=== PATIENT | male | born 1955 | race Caucasian/White ===

== ENCOUNTER 2017-07-02 08:37 | Day surgery (SDC) | payer BC, SELFPAY ==
--- NOTE | 2017-07-02 | IMM_PTH ---
PATIENT: CHAMP WU LOC: [place] U#:[id number] AGE/SX: 61/M ROOM: RE07/02/[address]: Dr. Cleveland Villanueva MD : 1955 BED: DIS: 07/02/2017 SPEC #: [id number] RECD: 07/05/17 12:56 STATUS: LETI CINDY #: [id number] DELFINA: 07/02/17 00:[address]: Cleveland Villanueva DEPT: IMMUNOHISTOCHEMISTRY RECD BY: Rosenda Waggoner ENTERED: 07/05/17 12:57 SP TYPE: IMMUNO OTHR DR: Dr. Mohan Senior MD Tissues: A - Stomach, NOS Procedures: H Pylori (initial) PHYSICIAN & INSTITUTION [place] [id number] SPECIMEN INFORMATION: Tissue Source: A ? Antral biopsy Clinical Info: Epigastric pain, GERD Specimen Number: [id number] CPT code: 95128 METHODOLOGY: Deparaffinized sections of prefer/formalin-fixed tissue or PAP/DQ stained slides are incubated with monoclonal/polyclonal antibodies/oligonucleotide probes. Localization is made via biotin free immunoperoxidase method. Appropriate controls are performed and reacted as expected. Results on target cell population are indicated in the following table: RESULTS: ANTIBODY / CLONE RESULT Block A H Pylori (polyclonal) negative These tests were developed and their performance characteristics determined by [facility]. They may not have been cleared or approved by the U.S. Food and Drug Administration. The FDA has determined that such clearance or approval is not necessary. INTERPRETATION: A. Antral biopsy: Negative for Helicobacter pylori organisms. SJ:mayelin 07/06/17
--- NOTE | 2017-07-02 | EGD_PTH ---
PATIENT: CHAMP WU LOC: [place] U#:[id number] AGE/SX: 61/M ROOM: RE07/02/[address]: Dr. Cleveland Villanueva MD : 1955 BED: DIS: 07/02/2017 SPEC #: [id number] RECD: 07/02/17 12:18 STATUS: LETI CINDY #: [id number] DELFINA: 07/02/17 00:[address]: Cleveland Villanueva DEPT: SURGICAL PATHOLOGY RECD BY: Leeann Murray ENTERED: 07/02/17 14:24 SP TYPE: EGD BIOPSY OT DR: Dr. Mohan Senior MD Tissues: A - Gastric mucous membrane B - Gastric mucous membrane Procedures: Special Stain Group II Surgery Specimen Level IV Alcian Blue/PAS (control) HEADER OPERATION: EGD PRE-OP DIAGNOSIS: Epigastric pain, GERD TISSUE SUBMITTED: A ? Antral biopsy, B ? GE junction MICROSCOPIC DIAGNOSIS A. Antral biopsy: Mild gastritis. See microscopic description and comment. B. 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 Focal mild chronic inflammation. SJ:rg 07/05/17 COMMENT A. The results of immunohistochemistry for Helicobacter pylori will be reported separately ([id number]). B. Alcian blue/PAS stain with matched control is used in the evaluation of the specimen. MICROSCOPIC DESCRIPTION Slides are reviewed. A. The specimen shows fragments of gastric mucosa with chronic inflammatory cell infiltrates in the lamina propria consisting of lymphocytes and plasma cells, consistent with mild chronic gastritis. GROSS DESCRIPTION A - Received in fixative is one container labeled with the patient's name and designated antral biopsy. The specimen consists of two irregular fragments of light johnson soft tissue that in aggregate measure 0.4 x 0.3 x 0.1 cm. The specimen is totally submitted in one cassette. B - Received in fixative is one container labeled with the patient's name and designated GE junction. The specimen consists of multiple irregular fragments of light johnson soft tissue that in aggregate measure 1 x 0.3 x 0.1 cm. The specimen is totally submitted in one cassette. / BALWINDER:mayelin 07/02/17 TC:3 CPT: 22683 x2, 41162
[2017-07-02 09:11] VITALS: BP 142/79; PULSE 64; RESP 16; TEMP 36.6; O2SAT 99; BMI 28.5
[2017-07-02 10:45] VITALS: BP 133/72; BP 142/79; PULSE 66; RESP 16; TEMP 36.1; O2SAT 95
[2017-07-02 10:50] VITALS: BP 117/61; BP 142/79; PULSE 60; RESP 15; O2SAT 98
[2017-07-02 10:55] VITALS: BP 124/82; BP 142/79; PULSE 52; RESP 16; O2SAT 98
--- NOTE | 2017-07-02 10:55 | OP.PCM_ITS ---
Problem List (1) GERD with esophagitis Status: Acute (2) Screen for colon cancer Status: Acute Report of Operation Date of Procedure: 07/02/17 Pre-Operative Diagnosis: 1. GERD. 2. Screening colonoscopy Post-Operative Diagnosis: 1. Esophagitis. 2. Sliding hiatal hernia. 3. Diverticulosis Surgery/Procedure Performed:: 1. EGD with biopsy. 2. Colonoscopy Specimen's removed: 1. Antral biopsy. 2. GE junction biopsy Description of Procedure: The major risks and benefits associated with the procedure were explained to the patient in detail. The patient verbalized understanding and agreement with the same. The patient was then placed in the left lateral decubitus position. IV sedation was started by anesthesia. The endoscope was then advanced under direct visualization over the tongue, into the esophagus , stomach and duodenum. It was slowly withdrawn and the mucosa was carefully evaluated. Duodenal mucosal abnormalities were not visualized. Antegrade and retrograde views of the stomach were normal and did not reveal ulceration. There did appear to be a small sliding hiatal hernia. Gastric folds were normal. A biopsy of the antrum was performed with cold forceps. The scope was then withdrawn through the GE junction and careful examination did reveal some erosive esophagitis. This was biopsied with cold forceps. No evidence of Grove's esophagus was apparent. Careful examination of the remainder of the esophagus was normal. The scope was then withdrawn from the patient. The patient was then turned for the colonoscopy portion of the procedure. A digital rectal exam was performed. This examination was within normal limits. A well-lubricated colonoscope was then inserted into the rectum and advanced under direct visualization to the level of the cecum. The bowel prep was good. The cecum was identified by both visual and anatomic landmarks. A photograph was taken of the end of the cecum. The scope was then fully withdrawn while examining the color, texture, anatomy and integrity of the mucosa from the cecum to the anal canal. The findings were consistent with normal colonic mucosa. Over 6 minutes were taken to examine the colonic mucosa. The patient did have some diverticulosis of the sigmoid colon. Upon reaching the rectum the scope was retroflexed to examine the distal rectal vault. The scope was then straightened and was completely retrieved upon exiting the anal canal and the procedure was terminated. The patient was then transferred to the recovery room in stable condition. Recommendations for follow up: 10 years for next colonoscopy
[2017-07-02 11:00] VITALS: BP 128/82; BP 142/79; PULSE 52; RESP 16; TEMP 36.1; O2SAT 99
[2017-07-02 11:20] VITALS: BP 142/79
== END 2017-07-02 11:20 | disposition home or self-care (01) ==
LOC: EN 08:38 → ACINP 08:39 → AC 08:41
PROVIDERS: Family Provider Family Medicine; PCP Family Medicine; Visit Provider Surgery
PROC: 0DJD8ZZ Inspection of Lower Intestinal Tract, Via Natural or Artificial Opening Endoscopic (ICD-10-PCS; CPT 45378; principal; 2017-07-02 09:55)
DX: K21.0 Gastro-esophageal reflux disease with esophagitis (principal); K22.70 Barrett's esophagus without dysplasia; K29.50 Unspecified chronic gastritis without bleeding; K44.9 Diaphragmatic hernia without obstruction or gangrene; K57.30 Diverticulosis of large intestine without perforation or abscess without bleeding; R10.13 Epigastric pain; Z12.11 Encounter for screening for malignant neoplasm of colon; D49.512 Neoplasm of unspecified behavior of left kidney; I10 Essential (primary) hypertension; E78.5 Hyperlipidemia, unspecified; Z79.82 Long term (current) use of aspirin; Z79.899 Other long term (current) drug therapy; Z82.49 Family history of ischemic heart disease and other diseases of the circulatory system
CPT/HCPCS: 43239; 45378; 88305; 88313; 88342; J7120

== ENCOUNTER 2017-08-04 05:17 | Inpatient (IN) | payer BC, SELFPAY ==
[2017-07-13 11:07] VITALS: BP 147/88; PULSE 72; RESP 16; TEMP 36.9; O2SAT 98; BMI 28.8
--- NOTE | 2017-07-13 11:24 | SDCEKG_ITS ---
Test Reason : Blood Pressure : / mmHG Vent. Rate : 061 BPM Atrial Rate : 061 BPM P-R Int : 140 ms QRS Dur : 100 ms QT Int : 402 ms P-R-T Axes : 027 -24 -01 degrees QTc Int : 404 ms Normal sinus rhythm Voltage criteria for left ventricular hypertrophy Abnormal ECG Confirmed by ADELA GUEVARA, MARK ([id number]), film editor MARCY BORJA ([id number]) on 07/15/2017 12:55:59 PM Referred By: Krish Pardo Confirmed By:MARK CHAPMAN MD
--- NOTE | 2017-07-13 11:24 | RAD_ITS ---
STUDY: X-RAY CHEST REASON FOR EXAM: Male, 61 years old. Preop. TECHNIQUE: PA and lateral views of the chest. COMPARISON: PA and lateral chest x-ray July 21, 2016. FINDINGS: The lungs are clear and expanded. There is no demonstrated pleural abnormality. Normal size heart. Normal mediastinum and lala. Normal visualized pulmonary arteries. Normal visualized aortic arch and descending thoracic aorta. There are stable multilevel degenerative changes of the visualized thoracic spine. Normal visualized ribs, clavicles, and shoulders. There is no demonstrated abnormality of the visualized soft tissue structures of the upper abdomen. RAD/Chest PA and Lateral IMPRESSION: No acute cardiopulmonary disease. Electronically Signed: Danyel Ly MD at 12:16 EST , Service support ,
[2017-07-13 12:21] LABS: Color, Urine Yellow (Yellow); Glucose, Dipstick 250 mg/dl (Normal); Ketone-Dipstick Negative (Negative); Leukocyte Esterase-Dipstick Negative /ul (Negative); Nitrite-Dipstick Negative (Negative); Occult Blood-Urine 10 /ul (Negative); Protein-Dipstick 15 mg/dl (Negative); Specific Gravity, Urine 1.025 (1.002-1.030); Urine Bilirubin Dipstick Negative (Negative); Urine Clarity Clear (Clear); Urine Urobilinogen Normal (Normal)
[2017-07-13 12:41] LABS: Hematocrit 39.9 % (40-54); Hemoglobin 14.4 g/dl (13.0-16.5); Mean Corp Hgb Conc 36.1 g/gl (32-36); Mean Corpuscular Hgb 33.3 pg (27.0-32.0); Mean Corpuscular Volume 92.4 fL (80-94); Mean Platelet Vol. 9.1 fl (6.2-12.0); Platelet Count 138 K/mm3 (150-450); RBC Distribution Width CV 13.1 % (11.6-14.6); RBC Distribution Width SD 44.1 fl (35.1-43.9); Red Blood Count 4.32 M/mm3 (4.6-6.2); Scan Indicated on CBC? Y/N NO; White Blood Count 5.3 K/mm3 (4.4-11.0)
[2017-07-13 13:24] LABS: ALB/GLOB Ratio 1.1 RATIO (0.9-2.4); AST(SGOT) 14 U/L (15-37); Alanine Aminotransfer ALT/SGPT 27 U/L (16-61); Albumin, Serum 3.8 g/dL (3.2-5.0); Alkaline Phosphatase 96 U/L (45-117); Anion Gap 6 (5-15); BUN 28 mg/dL (7-18); BUN/Creat Ratio 26.4 RATIO (10-20); Calcium,Total 9.1 mg/dL (8.5-10.1); Chloride 107 mmol/L (98-107); Creatinine, Serum 1.06 mg/dL (0.70-1.30); EST Glomerular Filtration Rate 76 mL/min (>60); Est Glom Filt Rate - Afr Amer 92 mL/min (>60); Estimated Creatinine Clearance 60.39 ml/min; Globulin 3.5 g/dL (2.2-4.2); Glucose 125 mg/dL (74-106); Potassium 3.3 mmol/L (3.5-5.1); Protein, Total 7.3 g/dL (6.4-8.2); Sodium Level 142 mmol/L (136-145)
[2017-08-04] VITALS (10 sets, daily range): BP systolic 133–173; BP diastolic 62–92; PULSE 66–100; RESP 16–18; TEMP 36.4–37.8; O2SAT 92–100; BMI 28.8
[2017-08-04] MEDS: Bupivacaine Mpf 0.5% 30 ML VIAL (07:03)
[2017-08-04] MEDS: Cefazolin 2 GM in 0.9% Normal Saline 100 ML IV (07:27)
--- NOTE | 2017-08-04 07:30 | KID_PTH ---
PATIENT: CHAMP WU LOC: [facility] U#:[id number] AGE/SX: 61/M ROOM: [facility] [place]07 RE08/04/[address]: Dr. Krish Pardo MD : 1955 BED: 1 DIS: 08/06/2017 SPEC #: [id number] RECD: 08/04/17 13:43 STATUS: LETI CINDY #: [id number] DELFINA: 08/04/17 07:[address]: Krish Pardo DEPT: SURGICAL PATHOLOGY RECD BY: Leeann Murray ENTERED: 08/04/17 14:55 SP TYPE: KIDNEY OTHR DR: Dr. Mohan Senior MD Tissues: A - Adipose tissue B - Kidney, NOS Procedures: Surgery Specimen Level III Surgery Specimen Level V HEADER OPERATION: Laparoscopic-assisted robotic left parietal nephrectomy PRE-OP DIAGNOSIS: Left kidney mass TISSUE SUBMITTED: A ? Fat over tumor, B ? Left kidney mass MICROSCOPIC DIAGNOSIS A. Fat over tumor: Mature adipose tissue, negative for malignancy. B. 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 Adjacent renal parenchymal tissue with mild interstitial chronic inflammation. SJ:rg 08/06/17 COMMENT Case has been reviewed in consultation with Dr. Holliday who concurs with the above diagnosis. IDC:AM MICROSCOPIC DESCRIPTION Slides are reviewed. GROSS DESCRIPTION A - Received in fixative is one container labeled with the patient's name and designated fat over tumor. The specimen consists of a piece of yellow adipose tissue measuring 2.5 x 1.5 x 0.6 cm. One surface shows adipose surfaces and other surfaces show mildly congested adipose surfaces. The congested surface is inked blue and opposite surface is inked black. The specimen is serially sectioned and submitted entirely in two cassettes. B - Received in fixative is one container labeled with the patient's name and designated left kidney mass. The specimen consists of a partial nephrectomy specimen consisting of a nodular mass with one side showing fatty renal adipose tissue and other side showing renal parenchymal tissue. The entire specimen measures 3 x 3 x 2.5 cm and weighs 10.6 gm. The area grossly resembling renal parenchymal tissue is inked with black ink. The rest of the specimen is inked with blue ink. Also present in the container is a small piece of adipose tissue measuring 1 x 0.6 x 0.2 cm. Serial sections reveal a pink-red tumor mass measuring 2.5 x 2 x 2.5 cm. The mass appears to be circumscribed. No invasion into the surrounding adipose tissue is noted. Hedge Trimmer sections are submitted in six cassettes. The entire tumor is submitted. A small portion of perirenal adipose is not submitted. / BALWINDER:mayelin 08/05/17 TC:1 CPT: 62348, 74603
--- NOTE | 2017-08-04 10:29 | OP.PCM_ITS ---
Problem List (1) Left renal mass Status: Acute Report of Operation Date of Procedure: 08/04/17 Pre-Operative Diagnosis: Left renal mass Post-Operative Diagnosis: Same Surgery/Procedure Performed:: Left laparoscopic robotic assisted partial nephrectomy. And left intraoperative ultrasonography of the left kidney. Description of Surgical Findings:: 61-year-old male taken back to the operating room at the smooth induction of general anesthesia Tristan catheter was placed he was in position and the modified left flank position for an approach the left kidney. The abdomen was shaved prepped and draped in usual sterile fashion. I then made a small incision and the camera trocar site but the Veress needle into the abdomen insufflated the abdomen with CO2 gas placed the camera trocar left robotic arm right robotic arm and the third senior court office assistant arm. And then placed the aerosol trocar through the umbilicus. I first I reflected the spleen off the kidney and then I reflected the colon off the kidney incising the white line of Toldt all the way down to the pelvis I then identified the gonadal vessels and ureter elevated these up in Marlen's down to the blood vessels of the left kidney I had to clip a fairly large lumbar vein going into the gonadal vessel and then this allowed me to retract the kidney cephalad and identify the renal artery are not renal artery was then circumferentially dissected out in order to clamp it I then went up to the kidney and did ultrasonography of the kidney identified the tumor a image of the tumor was saved I then scored and marked all the edges around the tumor a bulldog was then placed on the artery we then resected the tumor using sharp scissors and the entire resection was done under minimal blood loss is a good control bleeding from the clamp of the artery clamp time was 22 minutes after resecting the tumor off the tumor came off completely with no violation of the tumor capsule tumor was placed in Endo Catch bag we then oversewed the base of the resection site with a 30V lock stitch I did 3 stitches to run the base to control all the arteries and veins in the resection site. We then placed FloSeal unclamped the artery, again clamp time was 22 minutes. And then placed FloSeal and Surgicel and the defect and then closed the defect over with 0 Vicryl stitches a CT1 needle had to use 2 of these to close it close it over once this was closed over then we extracted the tumor to the umbilicus then went back in inspected the kidney there was no bleeding we irrigated copiously again no bleeding from his resection site and there was no pneumoperitoneum for at least 10 minutes as we extracted the tumor I then closed the camera trocar with a Shayan Landers stitch and then closed the variceal trocar with a Shayan Landers stitch of the trochars removed patient anesthetic is being reversed and we closed all the subcuticular stitches with Monocryl and Steri-Strips. Blood loss was minimal during the case about 50 cc and the patient is currently being awakened from anesthesia at this point. Type of Anesthesia:: General Drains: tristan Estimated Blood Loss (mL): 50cc - Admit VTE Documentation VTE Present on Admission: No VTE Mechan Device Prophylaxis: SCD's VTE Pharm Prophylaxis ordered?: No Reason prophylaxis not ordered:: Treatment Not Indicated
--- NOTE | 2017-08-04 13:17 | CHAPLAIN ---
Type of Pastoral Visit _x__ Initial Visit ___ Follow-up Visit ___ On-call Visit ___ General Patient Visit ___ Spiritual Assessment ___ Family Conference ___ Bereavement ___ Rapid Response ___ Code Blue ___ Other (describe below) Pastoral Care Referral From _x__ Patient _x__ Family ___ Nurse ___ Physician ___ Supervisor Paper Machine ___ Finish Off Operator ___ Other (describe below) Sacrament/Intervention _x__ Active listening ___ Anointing ___ Anabaptist ___ Bereavement ___ Communion ___ Breanna exploration ___ ___ Life review _x__ Prayer ___ Reconciliation ___ Sacrament of Sick _x__ Supportive presence ___ Wedding ___ Other (describe below) Pastoral Comments patient known to this bean snapper; support offered to spouse while she waited for pt to come to room from surgery; met with pt on his return to room and offered support and prayer; no other concerns
[2017-08-04] MEDS: 0.45% Normal Saline 1,000 ML 75 ML IV (13:26)
[2017-08-04] MEDS: Ketorolac 15 MG/ML Vial IV ×3 (13:26→23:51)
[2017-08-04] MEDS: Docusate Sodium 100 MG Capsule PO ×2 (13:28→21:29)
[2017-08-04] MEDS: Magnesium Hydroxide 30 ML UDC 15 ML PO (15:10)
[2017-08-04] MEDS: Acetaminophen 500 MG Tablet PO (19:53)
[2017-08-04] MEDS: Lisinopril 20 MG Tablet PO (21:29)
[2017-08-05 02:00] VITALS: BP 133/82; PULSE 69; RESP 16; TEMP 36.7; O2SAT 94
[2017-08-05] MEDS: 0.45% Normal Saline 1,000 ML 75 ML IV (02:30)
[2017-08-05] MEDS: Acetaminophen 500 MG Tablet PO ×2 (02:30→08:02)
[2017-08-05] MEDS: Enoxaparin 40 MG/0.4 ML Syringe SC (05:57)
[2017-08-05] MEDS: Ketorolac 15 MG/ML Vial IV ×4 (05:58→23:42)
--- NOTE | 2017-08-05 06:41 | PCM.PROGNOTE ---
Patient Problems: Active and Suspected Problems (Last Reviewed 06/16/17 @ 10:31 by Hilary Wallis) Left renal mass (Acute) Subjective: doing well tess reg diet - Physical Exam General: Alert, Oriented x3, Cooperative HEENT: Atraumatic, PERRLA, EOMI, Normocephalic Neck: Supple, No JVD, Negative Carotid Bruits Lungs: Clear to auscultation, Normal air movement Cardiovascular: Regular rate, No murmurs Abdomen: Bowel Sounds Present, Soft, Non Tender Extremities: No edema, Capillary Refill Less than 3 Seconds Skin: No rashes, No breakdown Musculoskeletal: No Tenderness to Palpation of Joints or Extremities Neurological: Cranial nerves II-XII grossly intact Psych/Mental Status: Normal Affect, Appropriate Vital Signs Temp Pulse Resp BP Pulse Ox 98.1 F 69 16 133/82 H 94 08/05/17 02:00 08/05/17 02:00 08/05/17 02:00 08/05/17 02:00 08/05/17 02:00 Oxygen Delivery Method Room Air Weight: 73.8 kg Body Mass Index (BMI) 28.8 Intake and Output for Last 24 Hours 08/03/17 08/04/17 08/05/17 23:59 23:59 23:59 Intake Total 7255 / 7255 765 / 765 Output Total 2675 / 2675 500 / 500 Balance 4580 / 4580 265 / 265 Laboratory Tests Past 24 Hrs 08/04/17 06:05 Blood Type O NEGATIVE Antibody Screen NEGATIVE Assessment/Plan Active and Suspected Problems (Last Reviewed 06/16/17 @ 10:31 by Hilary Wallis) Left renal mass (Acute) home tomorrow am reg diet heplock ivf ambulate
--- NOTE | 2017-08-05 06:43 | PCM.DC.URO ---
Discharge Diet: Light diet - advance as tolerated Discharge Activity: May not drive while taking narcotic pain medications. Call your doctor if your incision/area has: Continuous Slow Oozing, Sudden Increased Bleeding, Increased Pain/ Swelling, Increased Redness, Foul Smelling Discharge, Swelling at the incision site Call your doctor if you observe: Fever of 101 or Higher Suture Line Care: Avoid Pulling/Pushing, Avoid Pinching/Bending Allergies/Adverse Reactions: Allergies No Known Allergies Allergy (Verified 07/13/17 11:03) Medications to take at Discharge Amlodipine [Norvasc] 10 mg PO DAILY 05/18/16 Lisinopril [Zestril] 20 mg PO BID 05/18/16 Multivitamins,Therapeutic [Multivitamin] 1 tablet PO DAILY 08/05/16 omeprazole 20 mg capsule,delayed release 20 mg PO QDAY #30 cap 06/16/17 Docusate Sodium [Colace] 100 mg PO BID #20 cap 08/05/17 Hydrocodone/Acetaminophen [[place] 5-325 Tablet] 1 ea PO Q4H PRN PRN 5 Days #14 tab 08/05/17 Primary Care Physician: Mohan Senior MD [Primary Care Provider] - Please Follow Up With: Krish Pardo MD When: WednesdayAugust 16 at 9:45 am Proposed Discharge Date: 08/06/17
--- NOTE | 2017-08-05 06:51 | PCM.DC.SUM ---
Discharge Date and Diagnosis - Problem List Patient Problems: Active and Suspected Problems (Last Reviewed 06/16/17 @ 10:31 by Hilary Wallis) Left renal mass (Acute) Date of Admission: 08/05/16 Date of Discharge: 08/06/17 - Primary Discharge Diagnosis Active and Suspected Problems (Last Reviewed 06/16/17 @ 10:31 by Hilary Wallis) Left renal mass (Acute) - Secondary Discharge Diagnosis Chronic Problems (Last Reviewed 06/16/17 @ 10:31 by Hilary Wallis) Epigastric pain (Chronic) HTN (hypertension) (Chronic) HLD (hyperlipidemia) (Chronic) Hospital Course and Treatment Operations: None, - - robotic left partial nephrectomy Procedures: None Summary of Care Provided: The patient is a 61 year old male with left sold renal mass, concerning for malignancy s/p left partial nephrectomy,doing well, home on pod #2 Discharge Diet: Light diet - advance as tolerated Discharge Activity: May not drive while taking narcotic pain medications. Call your doctor if your incision/area has: Continuous Slow Oozing, Sudden Increased Bleeding, Increased Pain/ Swelling, Increased Redness, Foul Smelling Discharge, Swelling at the incision site Call your doctor if you observe: Fever of 101 or Higher Suture Line Care: Avoid Pulling/Pushing, Avoid Pinching/Bending Home Medications: Medications to take at Discharge Amlodipine [Norvasc] 10 mg PO DAILY 05/18/16 Lisinopril [Zestril] 20 mg PO BID 05/18/16 Multivitamins,Therapeutic [Multivitamin] 1 tablet PO DAILY 08/05/16 omeprazole 20 mg capsule,delayed release 20 mg PO QDAY #30 cap 06/16/17 Docusate Sodium [Colace] 100 mg PO BID #20 cap 08/05/17 Hydrocodone/Acetaminophen [[place] 5-325 Tablet] 1 ea PO Q4H PRN PRN 5 Days #14 tab 08/05/17 Following Prescrptions Were Given to Patient: Hydrocodone/Acetaminophen [[place] 5-325 Tablet] 1 ea PO Q4H PRN PRN 5 Days #14 tab PRN Reason: Pain Docusate Sodium [Colace] 100 mg PO BID #20 cap Primary Care Physician: Mohan Senior MD [Primary Care Provider] - Please Follow Up With: Krish Pardo MD When: WednesdayAugust 16 at 9:45 am Meaningful Use Info Meaningful Use Diagnoses (Choose all that apply): None applicable
[2017-08-05 07:56] VITALS: BP 132/65; PULSE 65; RESP 16; TEMP 36.8; O2SAT 96
[2017-08-05] MEDS: Lisinopril 20 MG Tablet PO ×2 (08:02→20:04)
[2017-08-05] MEDS: Magnesium Hydroxide 30 ML UDC 15 ML PO (08:02)
[2017-08-05] MEDS: Docusate Sodium 100 MG Capsule PO ×2 (08:19→20:05)
[2017-08-05] MEDS: Pantoprazole Sodium 20 MG Tablet PO (08:19)
[2017-08-05] MEDS: amLODIPine 10 MG Tablet PO (08:19)
[2017-08-05] MEDS: 0.9% NaCl Peripheral Flush Adult/Peds IV ×3 (11:34→23:42)
[2017-08-05 14:04] VITALS: BP 121/70; PULSE 61; RESP 18; TEMP 36.9; O2SAT 96
--- NOTE | 2017-08-05 14:51 | CHAPLAIN ---
Type of Pastoral Visit ___ Initial Visit _x__ Follow-up Visit ___ On-call Visit ___ General Patient Visit ___ Spiritual Assessment ___ Family Conference ___ Bereavement ___ Rapid Response ___ Code Blue ___ Other (describe below) Pastoral Care Referral From _x__ Patient ___ Family ___ Nurse ___ Physician ___ Community Planner ___ Drop Wire Builder ___ Other (describe below) Sacrament/Intervention _x__ Active listening ___ Anointing ___ Temple ___ Bereavement ___ Communion ___ Breanna exploration ___ _x__ Life review _x__ Prayer ___ Reconciliation ___ Sacrament of Sick ___ Supportive presence ___ Wedding ___ Other (describe below) Pastoral Comments
[2017-08-05 19:50] VITALS: BP 143/74; PULSE 62; RESP 18; TEMP 36.9; O2SAT 97
[2017-08-05 23:44] VITALS: BP 155/82; PULSE 58; RESP 16; TEMP 37.1; O2SAT 95
[2017-08-06 05:29] VITALS: BP 155/81; PULSE 58; RESP 16; TEMP 36.9; O2SAT 95
[2017-08-06] MEDS: 0.9% NaCl Peripheral Flush Adult/Peds IV (05:35)
[2017-08-06] MEDS: Enoxaparin 40 MG/0.4 ML Syringe SC (05:35)
[2017-08-06] MEDS: Ketorolac 15 MG/ML Vial IV (05:36)
[2017-08-06 07:35] VITALS: BP 160/80; PULSE 58; RESP 18; TEMP 36.8; O2SAT 96
[2017-08-06 07:45] VITALS: PULSE 58
[2017-08-06] MEDS: amLODIPine 10 MG Tablet PO (08:40)
[2017-08-06] MEDS: Docusate Sodium 100 MG Capsule PO (08:41)
[2017-08-06] MEDS: Lisinopril 20 MG Tablet PO (08:41)
[2017-08-06] MEDS: Pantoprazole Sodium 20 MG Tablet PO (08:41)
== END 2017-08-06 08:40 | disposition home or self-care (01) | DRG 658 ==
LOC: ACINP 05:18 → MS3 05:20 → MS2 11:56
PROVIDERS: Admitting Provider Urology; Family Provider Family Medicine; PCP Family Medicine; Visit Provider Urology
PROC: 0TB14ZZ Excision of Left Kidney, Percutaneous Endoscopic Approach (ICD-10-PCS; CPT 50543; principal; 2017-08-04 07:10)
DX: D30.02 Benign neoplasm of left kidney (principal); E78.5 Hyperlipidemia, unspecified; I10 Essential (primary) hypertension
CPT/HCPCS: 36415; 71046; 86850; 86900; 88304; 88307; J3010; J7120; A4216; J2405; J3490

== ENCOUNTER → 2017-10-23 07:18 | Outpatient (CLI) | payer BC, SELFPAY ==
[2017-10-23 08:19] LABS: Anion Gap 6 (5-15); BUN 19 mg/dL (7-18); BUN/Creat Ratio 21.7 RATIO (10-20); Calcium,Total 8.5 mg/dL (8.5-10.1); Chloride 109 mmol/L (98-107); Cholesterol 190 mg/dL (200); Creatinine, Serum 0.88 mg/dL (0.70-1.30); EST Glomerular Filtration Rate 94 mL/min (>60); Est Glom Filt Rate - Afr Amer 114 mL/min (>60); Glucose 100 mg/dL (74-106); High Density Lipoprotein 39 mg/dL; PSA,Total - Annual Screen 0.76 ng/mL (0.00-4.00); Potassium 3.3 mmol/L (3.5-5.1); Sodium Level 143 mmol/L (136-145); Triglycerides 232 mg/dL; Very Low Density Lipoprotein 46 mg/dL (5-40)
== END ==
PROVIDERS: Family Provider Family Medicine; PCP Family Medicine; Visit Provider Family Medicine
DX: Z12.5 Encounter for screening for malignant neoplasm of prostate (principal); I10 Essential (primary) hypertension; E78.5 Hyperlipidemia, unspecified
CPT/HCPCS: 36415; 80048; 80061; 84153; G0103

== ENCOUNTER 2017-10-24 19:11 | Emergency (ER) | payer BC, SELFPAY ==
[2017-10-24 19:12] VITALS: BP 165/94; PULSE 76; RESP 18; TEMP 37.2; O2SAT 98; BMI 29.2
--- NOTE | 2017-10-24 19:35 | ED.VISSUMM ---
- ER Visit Summary Date of Service: 10/24/17 Chief Complaint: Right finger redness History of Present Illness: The patient is a 62 M patient cut his finger 3 days ago. He cut on a piece of metal. He then noticed some redness. He denies any significant pain. No fever or drainage. His tetanus is up-to-date. Physical Examination: Vital signs are reviewed. Right hand reveals erythema to the right middle finger on the dorsal surface. There is an abrasion noted to the right PIP middle finger joint. He has full range of motion without pain. Test Results: None indicated Emergency Department Course and Treatment: Patient does appear to have cellulitis of the finger. He will be placed on Keflex. He will follow up with his PCP Treatment Plan: [] Disposition: Discharge Impression: Right middle finger cellulitis This note was generated with [employer] dictation software. It may contain incorrect words, spelling, and punctuation that were not noted in review of the chart prior to signing ED Disposition - Plan for ED Patient: Chief Complaint: Wound Referrals: Mohan Senior MD [Primary Care Provider] -
--- NOTE | 2017-10-24 19:37 | ED.DEP ---
ED Disposition - Plan for ED Patient: Disposition: Home or Assisted Living Chief Complaint: Wound Instructions: ED Infec Skin Cellulitis Prescriptions: Cephalexin [Keflex] 500 mg PO Q6 #28 cap Referrals: Mohan Senior MD [Primary Care Provider] -
[2017-10-24] MEDS: Cephalexin 250 MG Capsule 500 MG PO ×2 (19:47→20:04)
== END 2017-10-24 20:08 | disposition home or self-care (01) ==
PROVIDERS: Emergency Provider Emergency Medicine; Family Provider Family Medicine; PCP Family Medicine
DX: L03.011 Cellulitis of right finger (principal); I10 Essential (primary) hypertension; Z79.899 Other long term (current) drug therapy
CPT/HCPCS: 99283

== ENCOUNTER → 2017-12-08 16:18 | Outpatient (CLI) | payer BC, SELFPAY ==
--- NOTE | 2017-12-08 16:21 | US_ITS ---
STUDY: RENAL ULTRASOUND - COMPLETE REASON FOR EXAM: Male, 62 years old. Follow-up removal of a left renal mass. TECHNIQUE: Ultrasound evaluation of the kidneys was performed with real-time and static iglesias-scale imaging. COMPARISON: Abdominal ultrasound, August 11, 2016. CT of the abdomen and pelvis, April 01, 2017. FINDINGS: RIGHT KIDNEY: Normal location of the right kidney, which is normal in size. The right kidney measures 10.4 cm. There is a normal cortex of the right kidney. The renal cortex measures 1.3 cm. There is a 2 x 1.5 x 1.9 cm cyst mid cortex. There are no right renal calculi. There is no right hydronephrosis. DISTAL RIGHT URETER: There is non-visualization of the distal right ureter. There is no demonstrated right ureterovesical junction calculus. There is no demonstrated right ureteral jet. LEFT KIDNEY: Normal location of the left kidney, which is normal in size. The left kidney measures 10.2 cm. There is a normal cortex of the left kidney. The renal cortex measures 1.3 cm. There is no left renal mass or cyst. There are no left renal calculi. There is no left hydronephrosis. DISTAL LEFT URETER: There is non-visualization of the distal left ureter. There is no demonstrated left ureterovesical junction calculus. There is no demonstrated left ureteral jet. BLADDER: The nondistended urinary bladder has a volume of 13 ml. There is a normal wall thickness of the distended urinary bladder. There is no demonstrated mass within the urinary bladder. There are no demonstrated bladder calculi. US/Kidney and Bladder IMPRESSION: 1. No evidence of left renal mass. 2. Stable right renal cyst. Electronically Signed: Fred Wright DO at 22:50 EDT Tel [phone], Service support ,
== END ==
PROVIDERS: Family Provider Family Medicine; PCP Family Medicine; Visit Provider Nurse Practitioner Adult Health
DX: N28.89 Other specified disorders of kidney and ureter (principal)
CPT/HCPCS: 76770

== ENCOUNTER 2018-07-29 08:42 | Day surgery (SDC) | payer BC, SELFPAY ==
[2018-07-13 15:33] VITALS: BMI 28.5
[2018-07-29] VITALS (8 sets, daily range): BP systolic 110–141; BP diastolic 74–85; PULSE 51–63; RESP 16–18; TEMP 36.1–36.7; O2SAT 95–99; BMI 29.1
--- NOTE | 2018-07-29 10:00 | EGD_PTH ---
PATIENT: CHAMP WU LOC: [facility] U#:[id number] AGE/SX: 62/M ROOM: RE07/29/[address]: Dr. Cleveland Villanueva MD : 1955 BED: DIS: 07/29/2018 SPEC #: [id number] RECD: 07/29/18 12:14 STATUS: LETI CINDY #: [id number] DELFINA: 07/29/18 10:[address]: Cleveland Villanueva DEPT: SURGICAL PATHOLOGY RECD BY: Chris Whitmore ENTERED: 07/29/18 13:18 SP TYPE: EGD BIOPSY OTHR DR: Dr. Mohan Senior MD Tissues: Gastric mucous membrane Procedures: Special Stain Group II Surgery Specimen Level IV Alcian Blue/PAS (control) HEADER OPERATION: EGD ([facility] [place]) PRE-OP DIAGNOSIS: Grove's esophagus TISSUE SUBMITTED: GE junction biopsy MICROSCOPIC DIAGNOSIS GE junction, biopsy: Fragments of gastroesophageal mucosa with focal intestinal metaplasia (goblet cell metaplasia), consistent with Grove's esophagus. Negative for dysplasia. BALWINDER:mayelin 08/01/18 COMMENT Alcian blue/PAS stain with matched control is used in the evaluation of the specimen. MICROSCOPIC DESCRIPTION Slides are reviewed. GROSS DESCRIPTION Received in fixative is one container labeled with the patient's name and designated GE junction biopsy. The specimen consists of multiple irregular fragments of light johnson soft tissue that in aggregate measure 1 x 0.2 x 0.1 cm. The specimen is totally submitted in one cassette. / BALWINDER:mayelin 07/29/18 TC:5 CPT: 64813, 35510
--- NOTE | 2018-07-29 10:37 | OP.ENDO_ITS ---
07/29/2018 Mohan Senior [address] [place] [address] Re : Upper GI endoscopy procedure for Kev Whitmore Dear Dr. Senior This procedure was performed on Sunday, July 29, 2018. 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 Biopsied. - Widely patent, non-obstructing and mild Schatzki ring. - Medium-sized hiatal hernia. Recommendations : - Discharge patient to home (ambulatory). - Resume previous diet. - Continue present medications. - Await pathology results. - Repeat upper endoscopy in 2 years for surveillance. My findings are described in the full procedure note, which is enclosed. If I can be of further assistance, please feel free to contact me at Doctor phone number(s): , Work: . Sincerely, Cleveland Villanueva MD 07/29/2018 10:37:05 AM This report has been signed electronically.
== END 2018-07-29 11:15 | disposition home or self-care (01) ==
LOC: EN 08:45 → AC 08:50
PROVIDERS: Family Provider Family Medicine; PCP Family Medicine; Referring Provider Surgery; Visit Provider Surgery
PROC: 0DJ08ZZ Inspection of Upper Intestinal Tract, Via Natural or Artificial Opening Endoscopic (ICD-10-PCS; CPT 43235; principal; 2018-07-29 09:55)
DX: K22.70 Barrett's esophagus without dysplasia (principal); K22.2 Esophageal obstruction; K44.9 Diaphragmatic hernia without obstruction or gangrene; I10 Essential (primary) hypertension; Z79.899 Other long term (current) drug therapy
CPT/HCPCS: 43239; 88305; 88313; J7120

== ENCOUNTER → 2018-10-31 | Outpatient (CLI) | payer OTHER, SELFPAY ==
[2018-07-29 09:10] VITALS: BMI 29.1
== END | disposition home or self-care (01) ==
PROVIDERS: Family Provider Family Medicine; PCP Family Medicine; Visit Provider Family Medicine
DX: E78.5 Hyperlipidemia, unspecified (principal); I10 Essential (primary) hypertension; Z12.5 Encounter for screening for malignant neoplasm of prostate
CPT/HCPCS: 36415

== ENCOUNTER → 2019-04-10 09:41 | Outpatient (CLI) | payer OTHER, SELFPAY ==
[2018-07-29 09:10] VITALS: BMI 29.1
[2019-04-10 12:51] LABS: Anion Gap 6 (5-15); BUN 16 mg/dL (7-18); Calcium,Total 9.1 mg/dL (8.5-10.1); Chloride 107 mmol/L (98-107); EST Glomerular Filtration Rate 81 mL/min (>60); Est Glom Filt Rate - Afr Amer 98 mL/min (>60); Glucose 105 mg/dL (74-106); Potassium 3.5 mmol/L (3.5-5.1); Sodium Level 142 mmol/L (136-145)
== END ==
PROVIDERS: Family Provider Family Medicine; PCP Family Medicine; Referring Provider Family Medicine; Visit Provider Family Medicine
DX: I10 Essential (primary) hypertension (principal)
CPT/HCPCS: 36415; 80048

== ENCOUNTER → 2019-10-06 10:45 | Outpatient (CLI) | payer OTHER, SELFPAY ==
[2018-07-29 09:10] VITALS: BMI 29.1
[2019-10-06 13:05] LABS: ALB/GLOB Ratio 1.2 RATIO (0.9-2.4); AST(SGOT) 14 U/L (15-37); Alanine Aminotransfer ALT/SGPT 23 U/L (16-61); Albumin, Serum 3.8 g/dL (3.2-5.0); Alkaline Phosphatase 99 U/L (45-117); Anion Gap 7 (5-15); BUN 18 mg/dL (7-18); BUN/Creat Ratio 19.4 RATIO (10-20); Chloride 105 mmol/L (98-107); Cholesterol 225 mg/dL (200); Creatinine, Serum 0.93 mg/dL (0.70-1.30); EST Glomerular Filtration Rate 88 mL/min (>60); Est Glom Filt Rate - Afr Amer 106 mL/min (>60); Globulin 3.3 g/dL (2.2-4.2); Glucose 98 mg/dL (74-106); High Density Lipoprotein 50 mg/dL; PSA,Total - Annual Screen 0.97 ng/mL (0.00-4.00); Potassium 3.4 mmol/L (3.5-5.1); Protein, Total 7.1 g/dL (6.4-8.2); Sodium Level 143 mmol/L (136-145); Triglycerides 230 mg/dL; Very Low Density Lipoprotein 46 mg/dL (5-40)
== END ==
PROVIDERS: PCP Family Medicine; Visit Provider Family Medicine
DX: I10 Essential (primary) hypertension (principal); E78.5 Hyperlipidemia, unspecified; Z12.5 Encounter for screening for malignant neoplasm of prostate
CPT/HCPCS: 36415; 80053; 80061; 84153; G0103

== ENCOUNTER → 2020-10-04 10:04 | Outpatient (CLI) | payer OTHER, SELFPAY ==
[2018-07-29 09:10] VITALS: BMI 29.1
[2020-10-04 12:07] LABS: Absolute Lymphocyte Count 3.03 X10^3/uL (0.83-4.51); Absolute Neutrophil Count 1.5 X10^3/uL (2.0-7.7); Basophil# 0.02 X10^3/uL; Basophil% 0.4 % (0-1); Eosinophil# 0.06 X10^3/uL; Eosinophils% 1.2 % (0-5); Hematocrit 40.7 % (40-54); Hemoglobin 14.6 g/dL (13.0-16.5); Lymphocyte # 3.03 X10^3/ul (0.83-4.51); Lymphocyte % 58.2 % (19-41); Mean Corp Hgb Conc 35.9 g/dL (32-36); Mean Corpuscular Hgb 32.9 pg (27.0-32.0); Mean Corpuscular Volume 91.7 fL (80-94); Mean Platelet Vol. 9.4 fl (6.2-12.0); Monocyte# 0.58 X10^3/uL; Monocyte% 11.1 % (0-10); NRBC Flagged by Analyzer 0 % (0-5); Neutrophil # 1.48 X10^3/uL (2.7-7.7); Neutrophil % 28.3 % (47-70); POSITIVE COUNT YES; Platelet Count 67 K/mm3 (150-450); RBC Distribution Width CV 12.9 % (11.6-14.6); RBC Distribution Width SD 43.5 fl (35.1-43.9); Red Blood Count 4.44 M/mm3 (4.6-6.2); White Blood Count 5.2 K/mm3 (4.4-11.0)
[2020-10-04 12:12] LABS: Differential Indicated SCAN CRITERIA MET
[2020-10-04 12:24] LABS: AST(SGOT) 14 U/L (15-37); Alanine Aminotransfer ALT/SGPT 26 U/L (16-61); Albumin, Serum 3.7 g/dL (3.2-5.0); Alkaline Phosphatase 95 U/L (45-117); Anion Gap 7 (5-15); BUN 23 mg/dL (7-18); BUN/Creat Ratio 22.3 RATIO (10-20); Calcium,Total 8.8 mg/dL (8.5-10.1); Chloride 106 mmol/L (98-107); Cholesterol 197 mg/dL (200); Creatinine, Serum 1.03 mg/dL (0.70-1.30); EST Glomerular Filtration Rate 78 mL/min (>60); Est Glom Filt Rate - Afr Amer 94 mL/min (>60); Globulin 3.8 g/dL (2.2-4.2); Glucose 111 mg/dL (74-106); High Density Lipoprotein 48 mg/dL; Potassium 3.2 mmol/L (3.5-5.1); Protein, Total 7.5 g/dL (6.4-8.2); Sodium Level 141 mmol/L (136-145); Thyroid Stim Hormone (TSH) 1.95 uIU/mL (0.358-3.74); Triglycerides 245 mg/dL; Very Low Density Lipoprotein 49 mg/dL (5-40)
[2020-10-04 12:34] LABS: Platelet Estimate MKD DEC (ADEQ)
== END ==
PROVIDERS: PCP Family Medicine; Referring Provider Family Medicine; Visit Provider Family Medicine
DX: D69.6 Thrombocytopenia, unspecified (principal); I10 Essential (primary) hypertension
CPT/HCPCS: 36415; 80053; 80061; 84443; 85025

== ENCOUNTER → 2020-10-24 10:54 | Outpatient (CLI) | payer SELFPAY ==
[2018-07-29 09:10] VITALS: BMI 29.1
[2020-10-16 08:57] VITALS: BMI 30.4
--- NOTE | 2020-10-24 10:59 | MRI_ITS ---
HISTORY: PANCREATIC LESION ADDITIONAL HISTORY: None provided. COMPARISON: CT 04/01/2017 TECHNIQUE: Multiplanar, multisequence MRI of the abdomen without and with 15 mL Dotarem IV contrast FINDINGS: LOWER THORAX: Unremarkable. LIVER: No concerning focal lesion. GALLBLADDER: No distinct gallstones. BILE DUCTS: No significant biliary dilatation. KIDNEYS/URETERS: Bilateral renal cysts were otherwise no follow-up is warranted for consensus guidelines, largest on the right measuring 2.5 cm. The postoperative changes of partial nephrectomy on the left. ADRENAL GLANDS: Unremarkable. SPLEEN: Mildly enlarged, 13.2 cm craniocaudal PANCREAS: 8 mm cystic lesion in the tail of the pancreas without significant enhancement. GI TRACT: Unremarkable as imaged. LYMPH NODES: No pathologic appearing adenopathy. FREE FLUID: None. SKELETON AND SOFT TISSUES: No acute findings. MRI/MRI Abd WITH and W/O Contrast IMPRESSION: Subcentimeter cystic lesion in the pancreatic tail is unchanged compared to 2017. at 0426 Reported and signed by: Chela Prasad MD Electronically Signed: Chela Prasad MD at 4:26 EDT Tel , Service support ,
== END ==
PROVIDERS: PCP Family Medicine; Referring Provider Family Medicine; Visit Provider Family Medicine
DX: K86.9 Disease of pancreas, unspecified (principal)
CPT/HCPCS: 74183; A9575; A4216

== ENCOUNTER → 2021-01-07 10:16 | Outpatient (CLI) | payer OTHER, SELFPAY ==
[2020-11-06 16:00] VITALS: BMI 30.2
[2021-01-07 12:12] LABS: Anion Gap 6 (5-15); BUN 19 mg/dL (7-18); BUN/Creat Ratio 20.9 RATIO (10-20); Calcium,Total 8.7 mg/dL (8.5-10.1); Chloride 106 mmol/L (98-107); Creatinine, Serum 0.91 mg/dL (0.70-1.30); EST Glomerular Filtration Rate 89 mL/min (>60); Est Glom Filt Rate - Afr Amer 108 mL/min (>60); Glucose 108 mg/dL (74-106); PSA,Total - Annual Screen 1.08 ng/mL (0.00-4.00); Potassium 3.3 mmol/L (3.5-5.1); Sodium Level 140 mmol/L (136-145)
== END ==
PROVIDERS: PCP Family Medicine; Referring Provider Family Medicine; Visit Provider Family Medicine
DX: E87.6 Hypokalemia (principal); Z12.5 Encounter for screening for malignant neoplasm of prostate
CPT/HCPCS: 36415; 80048; 84153; G0103

== ENCOUNTER → 2021-01-24 17:48 | Outpatient (CLI) | payer OTHER, SELFPAY | PROVIDERS: Visit Provider Family Medicine | DX: Z20.822 Contact with and (suspected) exposure to COVID-19 (principal) | CPT/HCPCS: 87635; U0005; U0003 ==

== ENCOUNTER → 2021-02-11 16:46 | Outpatient (CLI) | payer SELFPAY ==
--- NOTE | 2021-02-11 16:50 | RAD_ITS ---
HISTORY: COUGH EXAMINATION/TECHNIQUE: XR Chest 2 Views: 2 views COMPARISON: 07/13/17 FINDINGS: LINES/DEVICES: None. LUNGS: Extensive bilateral airspace opacities, largely peripheral in distribution with scattered areas of consolidation. No pleural effusion. MEDIASTINUM AND CARDIOVASCULAR STRUCTURES: Cardiac silhouette not enlarged. Central airways and mediastinal contour are unremarkable. BONES AND SOFT TISSUES: No acute bony abnormalities. RAD/Chest PA and Lateral IMPRESSION: Extensive bilateral airspace disease consistent with atypical or viral pneumonia. at 1749 Reported and signed by: Tony Duval MD Electronically Signed: Tony Duval MD at 17:48 EDT Tel , Service support ,
== END ==
PROVIDERS: PCP Family Medicine; Referring Provider Family Medicine; Visit Provider Family Medicine
DX: R05 Cough (principal)
CPT/HCPCS: 71046

== ENCOUNTER 2021-08-22 16:22 | Outpatient (CLI) | payer OTHER, SELFPAY ==
[2021-08-22 17:37] LABS: Absolute Neutrophil Count 1.7 X10^3/uL (2.0-7.7); Basophil# 0.01 X10^3/uL; Basophil% 0.2 % (0-1); Eosinophil# 0.03 X10^3/uL; Eosinophils% 0.6 % (0-5); Hematocrit 39.9 % (40-54); Hemoglobin 14.6 g/dL (13.0-16.5); Lymphocyte % 52.4 % (19-41); Mean Corp Hgb Conc 36.6 g/dL (32-36); Mean Corpuscular Hgb 34.4 pg (27.0-32.0); Mean Corpuscular Volume 93.9 fL (80-94); Mean Platelet Vol. 9.6 fl (6.2-12.0); Monocyte# 0.51 X10^3/uL; Monocyte% 10.7 % (0-10); NRBC Flagged by Analyzer 0 % (0-5); Neutrophil # 1.69 X10^3/uL (2.7-7.7); Neutrophil % 35.5 % (47-70); POSITIVE COUNT YES; Platelet Count 91 K/mm3 (150-450); RBC Distribution Width CV 12.8 % (11.6-14.6); Red Blood Count 4.25 M/mm3 (4.6-6.2); White Blood Count 4.8 K/mm3 (4.4-11.0)
[2021-08-22 18:03] LABS: Differential Indicated SCAN CRITERIA MET
[2021-08-22 18:16] LABS: Differential Comment SCANNED
[2021-08-22 18:28] LABS: ALB/GLOB Ratio 1.1 RATIO (0.9-2.4); AST(SGOT) 15 U/L (15-37); Alanine Aminotransfer ALT/SGPT 20 U/L (16-61); Albumin, Serum 3.9 g/dL (3.2-5.0); Alkaline Phosphatase 97 U/L (45-117); Anion Gap 6 (5-15); BUN 25 mg/dL (7-18); BUN/Creat Ratio 23.1 RATIO (10-20); Calcium,Total 9.4 mg/dL (8.5-10.1); Chloride 107 mmol/L (98-107); Cholesterol 191 mg/dL (200); Creatinine, Serum 1.08 mg/dL (0.70-1.30); EST Glomerular Filtration Rate 73 mL/min (>60); Est Glom Filt Rate - Afr Amer 89 mL/min (>60); Globulin 3.6 g/dL (2.2-4.2); Glucose 97 mg/dL (74-106); High Density Lipoprotein 40 mg/dL; Magnesium 2.2 mg/dL (1.6-2.6); Protein, Total 7.5 g/dL (6.4-8.2); Sodium Level 140 mmol/L (136-145); T4 Free Direct 1.17 ng/dL (0.76-1.46); Thyroid Stim Hormone (TSH) 2.74 uIU/mL (0.358-3.74); Triglycerides 286 mg/dL; Very Low Density Lipoprotein 57 mg/dL (5-40)
== END 2021-08-22 23:59 | disposition home or self-care (01) ==
LOC: MFPLAB 16:25
PROVIDERS: PCP Family Medicine; Referring Provider Family Medicine; Visit Provider Family Medicine
DX: E78.5 Hyperlipidemia, unspecified (principal); I10 Essential (primary) hypertension; E87.6 Hypokalemia
CPT/HCPCS: 36415; 80053; 80061; 83735; 84439; 84443; 85025

== ENCOUNTER 2021-09-02 09:30 | Outpatient (CLI) | payer OTHER, SELFPAY ==
--- NOTE | 2021-09-02 09:34 | US_ITS ---
STUDY: THYROID ULTRASOUND REASON FOR EXAM: Male, 66 years old. THYROID NODULE TECHNIQUE: Ultrasound evaluation of the thyroid was performed with real-time and static bardales-scale imaging. COMPARISON: None. FINDINGS: RIGHT LOBE: The right lobe of the thyroid gland measures 4.0 x 1.7 x 1.6 cm. There is a homogeneous echotexture. There are no demonstrated solid, cystic or complex lesions. LEFT LOBE: The left lobe of the thyroid gland measures 4.0 x 1.4 x 1.1 cm. There is a homogeneous echotexture. There are no demonstrated solid, cystic or complex lesions. ISTHMUS: The isthmus measures 4 millimeters . The regional lymph nodes are normal. US/Thyroid IMPRESSION: Normal ultrasound examination of the thyroid. Electronically Signed: Debra Pizano MD at 7:41 EDT ,
== END 2021-09-02 23:59 | disposition home or self-care (01) ==
PROVIDERS: PCP Family Medicine; Referring Provider Family Medicine; Visit Provider Family Medicine
DX: E04.1 Nontoxic single thyroid nodule (principal); R01.1 Cardiac murmur, unspecified
CPT/HCPCS: 76536

== ENCOUNTER 2021-09-05 10:00 | Outpatient (CLI) | payer OTHER, SELFPAY ==
[2021-09-05 12:51] LABS: Anion Gap 6 (5-15); BUN 18 mg/dL (7-18); Calcium,Total 8.6 mg/dL (8.5-10.1); Chloride 106 mmol/L (98-107); EST Glomerular Filtration Rate 65 mL/min (>60); Est Glom Filt Rate - Afr Amer 78 mL/min (>60); Glucose 242 mg/dL (74-106); Potassium 4.3 mmol/L (3.5-5.1); Sodium Level 136 mmol/L (136-145)
== END 2021-09-05 23:59 | disposition home or self-care (01) ==
LOC: MFPLAB 10:00
PROVIDERS: PCP Family Medicine; Referring Provider Family Medicine; Visit Provider Family Medicine
DX: I10 Essential (primary) hypertension (principal)
CPT/HCPCS: 36415; 80048

== ENCOUNTER → 2021-09-16 | Outpatient (CLI) | payer OTHER, SELFPAY | END | disposition home or self-care (01) | LOC: MFPLAB 09:44 | PROVIDERS: PCP Family Medicine; Visit Provider Family Medicine | DX: E87.6 Hypokalemia (principal) | CPT/HCPCS: 36415; 84132 ==

== ENCOUNTER → 2021-09-18 | Outpatient (CLI) | payer OTHER, SELFPAY ==
--- NOTE | 2021-09-18 13:54 | ECHOD_ITS ---
Reason For Study: HEART MURMUR Procedure This was a 2D Doppler, Color Flow transthoracic echocardiogram. Exam performed in department. Left Ventricle Normal LV size. The estimated ejection fraction is 55 %. No evidence for diastolic dysfunction. No regional wall motion abnormalities noted. Right Ventricle Normal RV size. Normal systolic function. Atria Normal left atrium. Normal right atrium. No doppler evidence for ASD. Mitral Valve There is no mitral valve stenosis. Trivial mitral valve insufficiency. Tricuspid Valve There is no tricuspid stenosis. Unable to estimate RV systolic pressure due to insufficient tricuspid regurgitant envelope. Trivial tricuspid valve insufficiency. Aortic Valve Trisinus/trileaflet aortic valve. There is no aortic stenosis. Mild (1+) aortic valve insufficiency. Pulmonic Valve There is no pulmonic valvular stenosis. Trivial pulmonic valve insufficiency. Great Vessels Normal aortic root. Pericardium/Pleural No pericardial effusion. MMode/2D Measurements & Calculations LVIDd: 4.8 cm IVSd: 1.0 cm Ao root diam: 3.3 cm LVIDs: 3.3 cm LVPWd: 1.0 cm RVDd: 3.6 cm FS: 31.1 % LAV(MOD-bp): 39.3 ml LVAd ap4: 33.9 cm2 SV(MOD-sp4): 68.0 ml LAV(MOD-bp) Indexed: 22.3 ml/m2 LVLd ap4: 8.3 cm LAV(MOD-sp2): 37.0 ml EDV(MOD-sp4): 112.9 ml LAV(MOD-sp4): 37.6 ml EDV(sp4-el): 117.9 ml LVAs ap4: 19.2 cm2 LVLs ap4: 7.0 cm ESV(MOD-sp4): 44.9 ml ESV(sp4-el): 44.5 ml EF(MOD-sp4): 60.2 % EF(sp4-el): 62.3 % SV(sp4-el): 73.4 ml LA A4 area: 15.0 cm2 LA dimension(2D): 3.6 cm RA A4 area: 14.1 cm2 Time Measurements MV dec time: 0.22 sec Doppler Measurements & Calculations MV E max harish: 78.3 cm/sec Lat Peak E' Harish: 7.6 cm/sec Med Peak E' Harish: 7.1 cm/sec MV A max harish: 80.4 cm/sec E/E' lat: 10.4 E/E' med: 11.0 MV E/A: 0.97 Ao V2 max: 142.9 cm/sec AI max harish: 368.5 cm/sec LV V1 max: 131.5 cm/sec Ao max P.2 mmHg AI max P.3 mmHg LV V1 max P.9 mmHg AI dec slope: 186.1 cm/sec2 AI P1/2t: 579.8 msec PA V2 max: 102.5 cm/sec TR max harish: 270.2 cm/sec TR max P.2 mmHg ECHO/Echo Complete Interpretation Summary The estimated ejection fraction is 55 %. No evidence for diastolic dysfunction. Trivial mitral valve insufficiency. Mild (1+) aortic valve insufficiency. Ordering Physician: Mohan Tobias Referring Physician: Mohan Tobias Performed By: Namrata Flores RDCS
== END | disposition home or self-care (01) ==
LOC: CVS 13:52
PROVIDERS: PCP Family Medicine; Referring Provider Family Medicine; Visit Provider Family Medicine
CPT/HCPCS: 93306

== ENCOUNTER → 2021-09-19 | Outpatient (CLI) | payer OTHER, SELFPAY ==
[2021-09-19 15:29] LABS: Anion Gap 8 (5-15); BUN 24 mg/dL (7-18); BUN/Creat Ratio 21.2 RATIO (10-20); Calcium,Total 9.2 mg/dL (8.5-10.1); Chloride 104 mmol/L (98-107); Creatinine, Serum 1.13 mg/dL (0.70-1.30); EST Glomerular Filtration Rate 69 mL/min (>60); Est Glom Filt Rate - Afr Amer 84 mL/min (>60); Glucose 150 mg/dL (74-106); Potassium 3.8 mmol/L (3.5-5.1); Sodium Level 138 mmol/L (136-145)
== END | disposition home or self-care (01) ==
LOC: MFPLAB 11:36
PROVIDERS: PCP Family Medicine; Referring Provider Family Medicine; Visit Provider Family Medicine
DX: E87.6 Hypokalemia (principal)
CPT/HCPCS: 36415; 80048

== ENCOUNTER → 2021-12-17 | Outpatient (CLI) | payer OTHER, SELFPAY ==
[2021-12-17 17:57] LABS: Absolute Lymphocyte Count 2.73 X10^3/uL (0.83-4.51); Absolute Neutrophil Count 1.8 X10^3/uL (2.0-7.7); Basophil# 0.01 X10^3/uL; Basophil% 0.2 % (0-1); Eosinophil# 0.04 X10^3/uL; Eosinophils% 0.8 % (0-5); Hematocrit 38.1 % (40-54); Hemoglobin 13.7 g/dL (13.0-16.5); Lymphocyte # 2.73 X10^3/ul (0.83-4.51); Lymphocyte % 51.7 % (19-41); Mean Corpuscular Hgb 34.3 pg (27.0-32.0); Mean Corpuscular Volume 95.5 fL (80-94); Mean Platelet Vol. 9.7 fl (6.2-12.0); Monocyte# 0.65 X10^3/uL; Monocyte% 12.3 % (0-10); NRBC Flagged by Analyzer 0 % (0-5); Neutrophil # 1.82 X10^3/uL (2.7-7.7); Neutrophil % 34.4 % (47-70); Platelet Count 104 K/mm3 (150-450); Red Blood Count 3.99 M/mm3 (4.6-6.2); White Blood Count 5.3 K/mm3 (4.4-11.0)
[2021-12-17 18:06] LABS: AST(SGOT) 12 U/L (15-37); Alanine Aminotransfer ALT/SGPT 27 U/L (16-61); Albumin, Serum 3.8 g/dL (3.2-5.0); Alkaline Phosphatase 78 U/L (45-117); Anion Gap 8 (5-15); BUN 37 mg/dL (7-18); Calcium,Total 9.2 mg/dL (8.5-10.1); Chloride 103 mmol/L (98-107); Cholesterol 133 mg/dL (200); Creatinine, Serum 1.32 mg/dL (0.70-1.30); EST Glomerular Filtration Rate 58 mL/min (>60); Est Glom Filt Rate - Afr Amer 70 mL/min (>60); Globulin 3.7 g/dL (2.2-4.2); Glucose 99 mg/dL (74-106); High Density Lipoprotein 42 mg/dL; Potassium 4.1 mmol/L (3.5-5.1); Protein, Total 7.5 g/dL (6.4-8.2); Sodium Level 135 mmol/L (136-145); Triglycerides 245 mg/dL; Very Low Density Lipoprotein 49 mg/dL (5-40)
== END | disposition home or self-care (01) ==
LOC: MFPLAB 15:02
PROVIDERS: PCP Family Medicine; Referring Provider Family Medicine; Visit Provider Family Medicine
DX: E78.5 Hyperlipidemia, unspecified (principal)
CPT/HCPCS: 36415; 80053; 80061; 85025

== ENCOUNTER → 2021-12-25 | Outpatient (CLI) | payer OTHER, SELFPAY ==
[2021-12-25 15:08] LABS: Anion Gap 6 (5-15); BUN 34 mg/dL (7-18); BUN/Creat Ratio 23.1 RATIO (10-20); Calcium,Total 9.1 mg/dL (8.5-10.1); Chloride 104 mmol/L (98-107); Creatinine, Serum 1.47 mg/dL (0.70-1.30); EST Glomerular Filtration Rate 51 mL/min (>60); Est Glom Filt Rate - Afr Amer 62 mL/min (>60); Glucose 113 mg/dL (74-106); Potassium 4.2 mmol/L (3.5-5.1); Sodium Level 137 mmol/L (136-145)
== END | disposition home or self-care (01) ==
LOC: MTLAB 11:51
PROVIDERS: PCP Family Medicine; Referring Provider Family Medicine; Visit Provider Family Medicine
DX: I10 Essential (primary) hypertension (principal)
CPT/HCPCS: 36415; 80048

== ENCOUNTER → 2022-01-01 | Outpatient (CLI) | payer OTHER, SELFPAY ==
[2022-01-01 12:39] LABS: Anion Gap 8 (5-15); BUN 24 mg/dL (7-18); BUN/Creat Ratio 17.5 RATIO (10-20); Calcium,Total 8.8 mg/dL (8.5-10.1); Chloride 99 mmol/L (98-107); Creatinine, Serum 1.37 mg/dL (0.70-1.30); EST Glomerular Filtration Rate 56 mL/min (>60); Est Glom Filt Rate - Afr Amer 67 mL/min (>60); Glucose 120 mg/dL (74-106); Potassium 4.3 mmol/L (3.5-5.1); Sodium Level 133 mmol/L (136-145)
== END | disposition home or self-care (01) ==
LOC: MFPLAB 09:56
PROVIDERS: PCP Family Medicine; Referring Provider Family Medicine; Visit Provider Family Medicine
DX: N28.9 Disorder of kidney and ureter, unspecified (principal)
CPT/HCPCS: 36415; 80048

== ENCOUNTER → 2022-02-03 | Outpatient (CLI) | payer OTHER, SELFPAY ==
[2022-02-03 12:33] LABS: Anion Gap 10 (5-15); BUN 27 mg/dL (7-18); BUN/Creat Ratio 20.3 RATIO (10-20); Calcium,Total 9.2 mg/dL (8.5-10.1); Chloride 95 mmol/L (98-107); Creatinine, Serum 1.33 mg/dL (0.70-1.30); EST Glomerular Filtration Rate 58 mL/min (>60); Est Glom Filt Rate - Afr Amer 70 mL/min (>60); Glucose 115 mg/dL (74-106); Potassium 4.4 mmol/L (3.5-5.1); Sodium Level 132 mmol/L (136-145)
== END | disposition home or self-care (01) ==
LOC: MFPLAB 10:36
PROVIDERS: PCP Family Medicine; Visit Provider Family Medicine
DX: N28.9 Disorder of kidney and ureter, unspecified (principal)
CPT/HCPCS: 36415; 80048

== ENCOUNTER 2022-04-26 09:50 | Emergency (ER) | payer OTHER, SELFPAY ==
[2022-04-26 09:51] VITALS: BP 138/75; PULSE 100; RESP 17; TEMP 36.7; O2SAT 90; BMI 30.2
[2022-04-26 09:58] VITALS: O2SAT 90
[2022-04-26 09:59] VITALS: BP 146/74; PULSE 96; RESP 24; O2SAT 94
[2022-04-26 10:00] VITALS: O2SAT 94
--- NOTE | 2022-04-26 10:36 | EDS_ITS ---
HPI HPI - URI History of Present Illness Chief Complaint: Cough Informant: patient Onset/Context/Timing Onset: Days Context: Gradual Onset Timing: Continuous Current Severity: Mild Maximum Severity: Mild Associated Symptoms Associated Symptoms: Positive for Nasal Congestion and Productive Cough (Yellow sputum.); Negative for Nausea, Vomiting or Hemoptysis Narrative Narrative: 66-year-old male history of hypertension and renal insufficiency. States he has been having cough mild shortness of breath for approximately a week. Productive cough of yellowish sputum. Initially had diarrhea that is resolved. Denies any fever greater than 100. Denies any chest pain. No hemoptysis. Prior similar symptoms: Yes Recent Illness/Hospitalization: No ROS ROS ED ROS Narrative Cough. Shortness of breath. Diarrhea resolved. Review of Systems ROS Unobtainable: Denies due to encephalopathy Constitutional Constitutional ED: Reports chills and fever(s) Eyes Eyes: Denies blurry vision ENT ENT ED: Denies ear pain Cardiovascular Cardiovascular: Denies chest pain Respiratory/Chest Respiratory/Chest: Reports cough, dyspnea and sputum Gastrointestinal Gastrointestinal: Reports diarrhea; Denies abdominal pain, constipation, melena, nausea or vomiting Genitourinary Genitourinary ED: Denies dysuria or hematuria Musculoskeletal Musculoskeletal: Denies arthralgias Integumentary Denies abscess Neurologic Neurologic: Denies headache(s) Psychiatric Psychiatric: Denies anxiety Endocrine Endocrinology: Denies cold intolerance Hematologic/Lymphatic Hematologic/Lymphatic: Denies easy bleeding Allergic/Immunologic Allergic/Immunologic ED: Denies mouth swelling or tongue swelling [facility] Medical History Chest pressure Epigastric pain Hiatal hernia HLD (hyperlipidemia) HTN (hypertension) Hypokalemia Kidney cysts Kidney tumor Pancreas cyst Thrombocytopenia Home Medications amlodipine 5 mg tablet 10 mg PO DAILY blood pressure 05/18/16 [History Last Taken 08/04/17 04:00] lisinopril 20 mg tablet 20 mg PO DAILY blood pressure 05/18/16 [History Last Taken 08/04/17 04:00] multivitamin with folic acid 400 mcg tablet 1 tab PO DAILY supplement 08/05/16 [History Last Taken 08/03/17] omeprazole 20 mg capsule,delayed release 20 mg PO DAILY PRN Indigestion 07/13/18 [History Last Taken Unknown] aspirin 81 mg chewable tablet 81 mg PO DAILY 10/16/20 [History Last Taken Unknown] magnesium hydroxide 400 mg/5 mL oral suspension 5 ml PO DAILY PRN 10/16/20 [History Last Taken Unknown] omega-3 fatty acids 1,000 mg capsule (Fish Oil Concentrate) 2,000 mg PO DAILY PRN 10/16/20 [History Last Taken Unknown] hydrochlorothiazide 12.5 mg tablet 12.5 mg PO DAILY 11/06/20 [History Last Taken Unknown] spironolactone 25 mg tablet 25 mg PO 09/08/21 [History Last Taken Unknown] Allergy/AdvReac Type Severity Reaction Status Date / Time Beta-Blockers AdvReac Intermediate UNK Verified 04/26/22 09:50 (Beta-Adrenergic Bloc Family History Sister Diabetes Hypertension CAD (coronary artery disease) Father Hypertension Kidney disease Mother Hypertension Brother Seizures Surgical History H/O vasectomy History of kidney surgery Social History Smoking Status: Never smoker second hand exposure: No alcohol intake: never substance use type: does not use anand/nondenominational: Quaker EXAM Physical Exam Narrative Exam Narrative: 64-year-old male no acute distress. Vital signs stable afebrile. Pulse ox 90% on room air borderline hypoxia. No distress. H EENT exam unremarkable. Neck nontender no JVD. No lymphadenopathy. Lungs clear to auscultation bilaterally. No rales, rhonchi or wheezing. Equal symmetrical. Heart regular rhythm rate about 100 no murmur. Chest were nontender. Abdomen soft nontender. Moving all 4 extremities. Calves are nontender without edema or cords. Back nontender. He is awake and alert. No focal motor deficits. Const Vital Signs: 04/26/22 09:51 04/26/22 09:59 04/26/22 10:00 Temperature 98.1 F Temperature Source Temporal Pulse Rate 100 96 Respiratory Rate 17 24 H Respiratory Effort Normal Non-Labored Respiratory Depth Normal Respiratory Pattern Tachypnea Blood Pressure 138/75 H 146/74 H Blood Pressure Mean 96 98 Pulse Ox 90 94 Oxygen Delivery Method Room Air Nasal Cannula Nasal Cannula Oxygen Flow Rate (L/min) 2 2 Positive well nourished and well developed; Negative for cachectic or contractures General Appearance ED: well developed and NAD; Negative for cachectic, contractures, cyanotic, diaphoretic or pallor Nutritional Appearance: Negative for cachectic HEENT Reports moist mucous membranes; Denies dry mucous membranes normocephalic and atraumatic; Negative for scalp tenderness Face and Sinus: Negative for sinus tenderness, maxillary instability or facial tenderness Mouth ED: No dry mucous membranes Mouth: No dry mucous membranes Throat: posterior oropharynx normal; Negative for tonsils abnormal or posterior oropharynx abnormal Eyes PERRL and EOMs intact bilaterally General Eye ED: Negative for pale conjunctiva or scleral icterus Neck no lymphadenopathy, supple, no meningeal signs and no JVD General: Negative for anterior neck swelling or lymphadenopathy Resp normal respiratory effort and clear to auscultation bilaterally Effort and Inspection: Negative for retractions Auscultation: Negative for rales, rhonchi or wheezes Cardio S1 normal heart sound, S2 normal heart sound and no murmurs Rate: regular rate Rhythm: regular rhythm GI non-tender, non-distended and no masses Inspection: Negative for abdominal distention Auscultation: normoactive bowel sounds Palpation: soft; Negative for tender or guarding Back/Spine no CVA tenderness and normal ROM General Back: Negative for CVA tenderness Cervical Spine: Negative for cervical spine tenderness Thoracic Spine / Upper Back: Negative for thoracic spinal tenderness Lumbar Spine / Lower Back: Negative for lumbar spinal tenderness Sacrum: Negative for tenderness Extremity normal to inspection and full ROM General Extremety ED: Negative for cyanosis or tenderness General Extremity: Negative for cyanosis Neuro oriented x3 and CN's II-XII intact bilaterally Sensorium / Orientation: alert, oriented to person, oriented to place and oriented to time; Negative for orientation impaired, lethargic or stuporous Motor Exam: strength 5/5 throughout; Negative for general weakness Psych mental status grossly normal Appearance: Negative for other Attitude: No agitated Mood & Affect: Negative for depressed, anxious or tearful Skin General Skin Exam: Negative for jaundice or pallor Lesions: no lesions Rashes: no rashes Trauma: Negative for abrasion or laceration MDM MDM MDM Narrative Medical decision making narrative: 66-year-old male URI symptoms. Obtain a chest x-ray due to his borderline hypoxia. COVID and influenza test. Repeat exam unchanged at 11:20 AM. Patient to be discharged home. Lab Data Attestation: I reviewed the patient's lab results. Lab results narrative: COVID Test negative. Chest x-ray negative. Radiography Diagnostic Testing: Chest x-ray, portable, single view interpreted by myself shows no acute abnormality. Normal cardiac silhouette. No pneumonia. Discharge Plan Triage Chief Complaint: Cough ED Provider: Reynaldo Vidal Dx/Rx/DC Orders Clinical Impression: Viral URI, History of hypertension Instructions: ED Bronchitis, No Antibiotic (Adult) Prescriptions: No Action omeprazole 20 mg capsule,delayed release(DR/EC) 20 mg PO DAILY PRN (Reason: Indigestion) omega-3 fatty acids [Fish Oil Concentrate] 1,000 mg capsule 2,000 mg PO DAILY PRN magnesium hydroxide 400 mg/5 mL suspension 5 ml PO DAILY PRN aspirin 81 mg tablet,chewable 81 mg PO DAILY hydrochlorothiazide 12.5 mg tablet 12.5 mg PO DAILY spironolactone 25 mg tablet 25 mg PO Label Comments: take 1 tablet by mouth once daily lisinopril 20 MG tablet 20 mg PO DAILY amlodipine 5 MG tablet 10 mg PO DAILY multivitamin with folic acid 1 TABLET tablet 1 tab PO DAILY Primary Care Provider: Mohan Tobias Referrals: Mohan Tobias MD [Primary Care Provider] - 3-5 Days if not improving Activity Restrictions/Additional Instructions: Fluids and rest. Tylenol for body aches and fevers. COVID and influenza swabs are both negative today. Chest x-ray showed no pneumonia. Follow-up with his doctor if not improving. Disposition Disposition: Home, Self Care
--- NOTE | 2022-04-26 10:52 | RAD_ITS ---
EXAM: XR CHEST, 1 VIEW CLINICAL INDICATION: cough TECHNIQUE: Frontal view of the chest. This report was created using [employer] report generation technology. COMPARISON: XR Chest dated 02/11/2021 FINDINGS: LUNGS AND PLEURAL SPACES: Mild bibasilar peribronchial thickening which may represent acute or chronic inflammatory change. No pneumothorax. No effusion. HEART: Normal heart size. MEDIASTINUM: No mediastinal or hilar mass. BONES/JOINTS: No acute abnormality. SOFT TISSUES: Normal. RAD/Chest 1 View (Portable) IMPRESSION: Mild bibasilar peribronchial thickening. Electronically Signed: Luis Armando Diaz MD at 11:14 EST ,
[2022-04-26 11:31] VITALS: BP 141/78; PULSE 91; O2SAT 93
== END 2022-04-26 11:32 | disposition home or self-care (01) ==
PROVIDERS: Emergency Provider Emergency Medicine; PCP Family Medicine; Visit Provider Emergency Medicine
DX: J06.9 Acute upper respiratory infection, unspecified (principal)
CPT/HCPCS: 71045; 87428; 99282

== ENCOUNTER → 2022-07-22 | Outpatient (CLI) | payer OTHER, SELFPAY ==
[2022-07-22 10:48] LABS: Bacteria 0 SEEN /hpf (None Seen); Mucous, Urine 0 SEEN /hpf (<or=2+); Red Blood Cells-Urine 0 SEEN /hpf (0-5); Squamous Epithelial Cells - UA 0 SEEN /hpf (0-5); White Blood Cells 0 SEEN /hpf (0-5)
[2022-07-22 12:30] LABS: Color, Urine Yellow (Yellow); Glucose, Dipstick Normal (Normal); Ketone-Dipstick Negative (Negative); Leukocyte Esterase-Dipstick Negative /ul (Negative); Nitrite-Dipstick Negative (Negative); Occult Blood-Urine 10 /ul (Negative); Protein-Dipstick Negative (Negative); Urine Bilirubin Dipstick Negative (Negative); Urine Clarity Clear (Clear); Urine Urobilinogen Normal (Normal)
[2022-07-22 12:39] LABS: Absolute Lymphocyte Count 2.49 X10^3/uL (0.83-4.51); Absolute Neutrophil Count 2.2 X10^3/uL (2.0-7.7); Basophil# 0.01 X10^3/uL; Basophil% 0.2 % (0-1); Eosinophil# 0.11 X10^3/uL; Eosinophils% 1.9 % (0-5); Hematocrit 39.7 % (40-54); Hemoglobin 14.1 g/dL (13.0-16.5); Lymphocyte # 2.49 X10^3/ul (0.83-4.51); Lymphocyte % 43.4 % (19-41); Mean Corp Hgb Conc 35.5 g/dL (32-36); Mean Corpuscular Hgb 33.5 pg (27.0-32.0); Mean Corpuscular Volume 94.3 fL (80-94); Mean Platelet Vol. 9.2 fl (6.2-12.0); Monocyte# 0.88 X10^3/uL; Monocyte% 15.3 % (0-10); NRBC Flagged by Analyzer 0 % (0-5); Neutrophil # 2.22 X10^3/uL (2.7-7.7); Neutrophil % 38.7 % (47-70); Platelet Count 117 K/mm3 (150-450); RBC Distribution Width CV 13.4 % (11.6-14.6); RBC Distribution Width SD 46.1 fl (35.1-43.9); Red Blood Count 4.21 M/mm3 (4.6-6.2); White Blood Count 5.7 K/mm3 (4.4-11.0)
[2022-07-22 14:25] LABS: ALB/GLOB Ratio 0.8 RATIO (0.9-2.4); AST(SGOT) 11 U/L (15-37); Alanine Aminotransfer ALT/SGPT 17 U/L (16-61); Albumin, Serum 3.5 g/dL (3.2-5.0); Alkaline Phosphatase 100 U/L (45-117); Anion Gap 11 (5-15); BUN 28 mg/dL (7-18); BUN/Creat Ratio 24.8 RATIO (10-20); Calcium,Total 9.4 mg/dL (8.5-10.1); Chloride 105 mmol/L (98-107); Cholesterol 184 mg/dL (200); Creatinine, Serum 1.13 mg/dL (0.70-1.30); EST Glomerular Filtration Rate 69 mL/min (>60); Est Glom Filt Rate - Afr Amer 84 mL/min (>60); Globulin 4.2 g/dL (2.2-4.2); Glucose 112 mg/dL (74-106); High Density Lipoprotein 38 mg/dL; Potassium 3.8 mmol/L (3.5-5.1); Protein, Total 7.7 g/dL (6.4-8.2); Sodium Level 140 mmol/L (136-145); Triglycerides 417 mg/dL
[2022-07-23 15:51] LABS: Hemoglobin A1c 5.9 % (3.8-5.6)
== END | disposition home or self-care (01) ==
LOC: MFPLAB 10:44
PROVIDERS: PCP Family Medicine; Referring Provider Family Medicine; Visit Provider Family Medicine
DX: R73.09 Other abnormal glucose (principal); I10 Essential (primary) hypertension
CPT/HCPCS: 36415; 80053; 80061; 81001; 83036; 84443; 85025

== ENCOUNTER → 2022-09-25 | Outpatient (CLI) | payer MEDICARE, OTHER, SELFPAY ==
--- NOTE | 2022-09-25 09:05 | US_ITS ---
EXAM: US ABDOMEN LIMITED, RIGHT UPPER QUADRANT CLINICAL INDICATION: PANCREATIC LESION TECHNIQUE: Real-time ultrasound of the right upper quadrant with image documentation. COMPARISON: MRI from 10/24/2020 FINDINGS: LIVER: Unremarkable. There is normal echotexture. No focal hepatic lesion. No intrahepatic biliary ductal dilation. GALLBLADDER: Unremarkable. No shadowing gallstone. No gallbladder wall thickening is demonstrated. No pericholecystic fluid. Negative sonographic Tran''s sign. COMMON BILE DUCT: 4.5 mm. The proximal common bile duct is within normal limits for the patient''s age. PANCREAS: The pancreatic tail is obscured by bowel gas. RIGHT KIDNEY: Simple right renal cyst measuring 3.4 cm, no follow-up required. There is no hydronephrosis. No shadowing calculus. US/Abdomen Limited IMPRESSION: The pancreatic tail is obscured by bowel gas. Unable to evaluate the previously described cystic lesion. Electronically Signed: Leland Mariscal MD at 1:22 EDT ,
== END | disposition home or self-care (01) ==
LOC: US 09:04
PROVIDERS: PCP Family Medicine; Referring Provider Family Medicine; Visit Provider Family Medicine
DX: K86.9 Disease of pancreas, unspecified (principal)
CPT/HCPCS: 76705

== ENCOUNTER → 2022-10-06 | Outpatient (CLI) | payer MEDICARE, OTHER, SELFPAY ==
--- NOTE | 2022-10-06 09:07 | US_ITS ---
STUDY: ABDOMINAL ULTRASOUND - RIGHT UPPER QUADRANT REASON FOR VISIT: Male, 67 years old . Pancreatic lesion. TECHNIQUE: Ultrasound evaluation of the right upper quadrant was performed with real-time and static bardales-scale imaging. TECHNICAL QUALITY: Adequate. COMPARISON: Comparison is made with a prior examination dated the 2022. FINDINGS: Liver: The liver measures 15.8 cm. There is normal echogenicity of the liver. The bile ducts are within normal limits. There is hepatic color flow. The direction of portal flow is hepatopetal. There is no demonstrated mass lesion. Gallbladder: Normal distended gallbladder. The gallbladder wall measures 1.5 mm. There is a negative sonographic Tran''s sign. There is no pericholecystic fluid. There are no gallstones. Common Bile Duct (C.B.D.): The common bile duct measures 3.2 mm. Pancreas: Normal size of the head, body and tail of the pancreas. There is normal echogenicity of the pancreas. There is no demonstrated pancreatic mass or cyst. The previously seen tiny cyst in the pancreatic tail is not visualized. Right Kidney: Normal size of the right kidney. The right kidney measures 10.7 cm x 5.4 cm x 6 cm. Normal renal cortex. The right cortex measures 1.6 cm. There is a 3.7 cm x 3.2 cm x 2.9 cm cyst in the right kidney. There is no right hydronephrosis. US/Abdomen Limited IMPRESSION: Stable examination. The small cystic structure in the tail of the pancreas is not visualized on this examination. Electronically Signed: Rufus Chao MD at 15:16 EDT ,
== END | disposition home or self-care (01) ==
LOC: US 09:06
PROVIDERS: PCP Family Medicine; Referring Provider Family Medicine; Visit Provider Family Medicine
DX: K86.9 Disease of pancreas, unspecified (principal)
CPT/HCPCS: 76705

== ENCOUNTER → 2022-11-20 | Outpatient (CLI) | payer MEDICARE, OTHER, SELFPAY ==
[2022-11-20 10:27] LABS: Bacteria 0 SEEN /hpf (None Seen); Mucous, Urine 0 SEEN /hpf (<or=2+); Squamous Epithelial Cells - UA 0 SEEN /hpf (0-5); White Blood Cells 0 SEEN /hpf (0-5)
[2022-11-20 12:23] LABS: Color, Urine Yellow (Yellow); Glucose, Dipstick Normal (Normal); Ketone-Dipstick 15 mg/dl (Negative); Leukocyte Esterase-Dipstick Negative /ul (Negative); Nitrite-Dipstick Negative (Negative); Occult Blood-Urine 10 /ul (Negative); Protein-Dipstick Negative (Negative); Specific Gravity, Urine 1.015 (1.002-1.030); Urine Bilirubin Dipstick Negative (Negative); Urine Clarity Clear (Clear); Urine Urobilinogen Normal (Normal)
[2022-11-20 12:29] LABS: Absolute Lymphocyte Count 2.51 X10^3/uL (0.83-4.51); Absolute Neutrophil Count 1.4 X10^3/uL (2.0-7.7); Basophil# 0.02 X10^3/uL; Basophil% 0.4 % (0-1); Eosinophil# 0.06 X10^3/uL; Eosinophils% 1.1 % (0-5); Hematocrit 42.9 % (40-54); Hemoglobin 15.3 g/dL (13.0-16.5); Lymphocyte # 2.51 X10^3/ul (0.83-4.51); Lymphocyte % 47.2 % (19-41); Mean Corp Hgb Conc 35.7 g/dL (32-36); Mean Corpuscular Hgb 33.6 pg (27.0-32.0); Mean Corpuscular Volume 94.3 fL (80-94); Monocyte% 24.4 % (0-10); NRBC Flagged by Analyzer 0 % (0-5); Neutrophil % 26.3 % (47-70); POSITIVE COUNT YES; Platelet Count 76 K/mm3 (150-450); RBC Distribution Width CV 13.2 % (11.6-14.6); Red Blood Count 4.55 M/mm3 (4.6-6.2); White Blood Count 5.3 K/mm3 (4.4-11.0)
[2022-11-20 12:31] LABS: Red Blood Cells-Urine 0-5 SEEN /hpf (0-5)
[2022-11-20 12:34] LABS: Differential Indicated SCAN CRITERIA MET
[2022-11-20 12:49] LABS: Hemoglobin A1c 5.8 % (3.8-5.6)
[2022-11-20 12:56] LABS: AST(SGOT) 13 U/L (15-37); Alanine Aminotransfer ALT/SGPT 20 U/L (16-61); Albumin, Serum 3.7 g/dL (3.2-5.0); Alkaline Phosphatase 90 U/L (45-117); Anion Gap 7 (5-15); BUN 23 mg/dL (7-18); BUN/Creat Ratio 20.2 RATIO (10-20); Calcium,Total 9.2 mg/dL (8.5-10.1); Chloride 104 mmol/L (98-107); Cholesterol 171 mg/dL (200); Creatinine, Serum 1.14 mg/dL (0.70-1.30); EST Glomerular Filtration Rate 69 mL/min (>60); Est Glom Filt Rate - Afr Amer 83 mL/min (>60); Globulin 3.7 g/dL (2.2-4.2); Glucose 102 mg/dL (74-106); High Density Lipoprotein 39 mg/dL; Potassium 3.8 mmol/L (3.5-5.1); Protein, Total 7.4 g/dL (6.4-8.2); Sodium Level 137 mmol/L (136-145); Triglycerides 251 mg/dL; Very Low Density Lipoprotein 50 mg/dL (5-40)
[2022-11-20 13:04] LABS: Platelet Estimate MOD DEC (ADEQ)
== END | disposition home or self-care (01) ==
LOC: MFPLAB 10:19
PROVIDERS: PCP Family Medicine; Visit Provider Family Medicine
DX: R73.09 Other abnormal glucose (principal); I10 Essential (primary) hypertension
CPT/HCPCS: 36415; 80053; 80061; 81001; 83036; 84443; 85025

== ENCOUNTER → 2023-04-20 | Outpatient (CLI) | payer MEDICARE, OTHER, SELFPAY ==
[2023-04-20 12:52] LABS: PSA,Total - Annual Screen 1.89 ng/mL (0.00-4.00)
== END | disposition home or self-care (01) ==
LOC: MFPLAB 10:45
PROVIDERS: PCP Family Medicine; Visit Provider Family Medicine
DX: Z12.5 Encounter for screening for malignant neoplasm of prostate (principal)
CPT/HCPCS: 36415; 84153; G0103

== ENCOUNTER → 2023-08-18 | Outpatient (CLI) | payer MEDICARE, OTHER, SELFPAY ==
[2023-08-18 09:59] LABS: Bacteria 0 SEEN /hpf (None Seen); Mucous, Urine 0 SEEN /hpf (<or=2+); White Blood Cells 0 SEEN /hpf (0-5)
[2023-08-18 12:26] LABS: Absolute Lymphocyte Count 2.43 X10^3/uL (0.83-4.51); Absolute Neutrophil Count 1.5 X10^3/uL (2.0-7.7); Basophil# 0.01 X10^3/uL; Basophil% 0.2 % (0-1); Eosinophil# 0.03 X10^3/uL; Eosinophils% 0.5 % (0-5); Hematocrit 40.5 % (40-54); Hemoglobin 14.7 g/dL (13.0-16.5); Lymphocyte # 2.43 X10^3/ul (0.83-4.51); Lymphocyte % 44.1 % (19-41); Mean Corp Hgb Conc 36.3 g/dL (32-36); Mean Corpuscular Hgb 34.4 pg (27.0-32.0); Mean Corpuscular Volume 94.8 fL (80-94); Mean Platelet Vol. 9.7 fl (6.2-12.0); Monocyte# 1.48 X10^3/uL; Monocyte% 26.9 % (0-10); NRBC Flagged by Analyzer 0 % (0-5); Neutrophil # 1.51 X10^3/uL (2.7-7.7); Neutrophil % 27.4 % (47-70); POSITIVE COUNT YES; Platelet Count 84 K/mm3 (150-450); RBC Distribution Width CV 13.2 % (11.6-14.6); RBC Distribution Width SD 45.4 fl (35.1-43.9); Red Blood Count 4.27 M/mm3 (4.6-6.2); White Blood Count 5.5 K/mm3 (4.4-11.0)
[2023-08-18 12:28] LABS: Color, Urine Yellow (Yellow); Glucose, Dipstick Normal (Normal); Ketone-Dipstick Negative (Negative); Leukocyte Esterase-Dipstick Negative /ul (Negative); Nitrite-Dipstick Negative (Negative); Occult Blood-Urine 25 /ul (Negative); Protein-Dipstick 15 mg/dl (Negative); Urine Bilirubin Dipstick Negative (Negative); Urine Clarity Clear (Clear); Urine Urobilinogen Normal (Normal); Urine pH 6.5 (5.0 - 8.0)
[2023-08-18 12:48] LABS: Red Blood Cells-Urine 0-5 SEEN /hpf (0-5); Squamous Epithelial Cells - UA 0-5 SEEN /hpf (0-5)
[2023-08-18 13:03] LABS: AST(SGOT) 15 U/L (15-37); Alanine Aminotransfer ALT/SGPT 21 U/L (16-61); Albumin, Serum 3.5 g/dL (3.2-5.0); Alkaline Phosphatase 94 U/L (45-117); Anion Gap 7 (5-15); BUN 19 mg/dL (7-18); BUN/Creat Ratio 17.1 RATIO (10-20); Chloride 104 mmol/L (98-107); Cholesterol 167 mg/dL (200); Creatinine, Serum 1.11 mg/dL (0.70-1.30); EST Glomerular Filtration Rate 71 mL/min (>60); Est Glom Filt Rate - Afr Amer 85 mL/min (>60); Globulin 3.6 g/dL (2.2-4.2); Glucose 124 mg/dL (74-106); High Density Lipoprotein 41 mg/dL; Magnesium 2.4 mg/dL (1.6-2.6); Potassium 3.3 mmol/L (3.5-5.1); Protein, Total 7.1 g/dL (6.4-8.2); Sodium Level 140 mmol/L (136-145); Thyroid Stim Hormone (TSH) 1.89 uIU/mL (0.358-3.74); Triglycerides 338 mg/dL; Very Low Density Lipoprotein 68 mg/dL (5-40)
== END | disposition home or self-care (01) ==
LOC: MFPLAB 09:58
PROVIDERS: PCP Family Medicine; Visit Provider Family Medicine
DX: I10 Essential (primary) hypertension (principal); R73.02 Impaired glucose tolerance (oral)
CPT/HCPCS: 36415; 80053; 80061; 81001; 83036; 83735; 84443; 85025

== ENCOUNTER 2023-09-17 06:19 | Day surgery (SDC) | payer MEDICARE, OTHER, SELFPAY ==
--- NOTE | 2023-09-17 | GASB_PTH ---
PATIENT: CHAMP WU LOC: [place] U#:[id number] AGE/SX: 68/M ROOM: RE09/17/[address]: Dr. Cleveland Villanueva MD : 1955 BED: DIS: 09/17/2023 SPEC #: [id number] RECD: 09/17/23 09:29 STATUS: LETI CINDY #: [id number] DELFINA: 09/17/23 00:[address]: Cleveland Villanueva DEPT: SURGICAL PATHOLOGY RECD BY: Agustin Hdz ENTERED: 09/17/23 09:29 SP TYPE: Gastric Bx OTHR DR: Dr. Mohan Tobias MD Tissues: A - Gastric mucous membrane B - Esophageal mucous membrane Procedures: Special Stain Group II Surgery Specimen Level IV Alcian Blue/PAS (control) HEADER OPERATION: EGD with biopsies PRE-OP DIAGNOSIS: Grove's esophagus surveillance TISSUE SUBMITTED: A- Antrum biopsy, B- Esophagus biopsy MICROSCOPIC DIAGNOSIS A. Antrum, biopsy: Mild gastritis. See microscopic description and comment. B. Esophagus, biopsy: Fragments of gastroesophageal mucosa with chronic inflammation and changes consistent with gastroesophageal reflux disease. Intestinal metaplasia (goblet cell metaplasia) not identified. See comment. BALWINDER/ 09/20/2023 COMMENT A. The results of immunohistochemistry for Helicobacter pylori will be reported separately ([id number]). B. Alcian blue/PAS stain with matched control is used in the evaluation of the specimen. MICROSCOPIC DESCRIPTION Slides are reviewed. A. The specimen shows fragments of gastric mucosa with chronic inflammatory cell infiltrates in the lamina propria consisting of lymphocytes and plasma cells, consistent with mild chronic gastritis. GROSS DESCRIPTION A. Received in fixative is one container labeled with the patient's name and designated Antrum biopsy. The specimen consists of two irregular fragments of light johnson soft tissue that in aggregate measure 0.6 x 0.3 x 0.1 cm. The specimen is totally submitted in one cassette. B. Received in fixative is one container labeled with the patient's name and designated Esophagus biopsy. The specimen consists of multiple irregular fragments of light johnson soft tissue that in aggregate measure 1.0 x 0.5 x 0.1 cm. The specimen is totally submitted in one cassette. BALWINDER/ 09/17/2023 TC:3 CPT:56141f3,03299
[2023-09-17 07:03] VITALS: BP 130/62; PULSE 68; RESP 16; TEMP 36.9; O2SAT 98
[2023-09-17] MEDS: Lactated Ringers 1,000 ML 15 ML IV (07:07)
--- NOTE | 2023-09-17 07:30 | IMM_PTH ---
PATIENT: CHAMP WU LOC: [place] U#:[id number] AGE/SX: 68/M ROOM: RE09/17/[address]: Dr. Cleveland Villanueva MD : 1955 BED: DIS: 09/17/2023 SPEC #: [id number] RECD: 09/17/23 10:19 STATUS: LETI WHITE #: [id number] DELFINA: 09/17/23 07:[address]: Cleveland Villanueva DEPT: IMMUNOHISTOCHEMISTRY RECD BY: London Perez ENTERED: 09/17/23 10:20 SP TYPE: IMMUNO OTHR DR: Dr. Mohan Tobias MD Tissues: A - Stomach, NOS Procedures: H Pylori (initial) PHYSICIAN & INSTITUTION [place] [address] SPECIMEN INFORMATION: Tissue Source: A- Antrum Clinical Info: Grove's esophagus surveillance Specimen Number: [id number] CPT code: 21806 METHODOLOGY: Deparaffinized sections of prefer/formalin-fixed tissue or PAP/DQ stained slides are incubated with monoclonal/polyclonal antibodies/oligonucleotide probes. Localization is made via biotin free immunoperoxidase method. Appropriate controls are performed and reacted as expected. Results on target cell population are indicated in the following table: RESULTS: ANTIBODY / CLONE RESULT Block A H Pylori (polyclonal) negative These tests were developed and their performance characteristics determined by [facility]. They may not have been cleared or approved by the U.S. Food and Drug Administration. The FDA has determined that such clearance or approval is not necessary. The above immunohistochemical/dualISH markers are ordered and reviewed by the Pathologist. INTERPRETATION: A. Antrum, biopsy: Negative for Helicobacter pylori organisms. BALWINDER/ 09/20/2023
[2023-09-17 07:51] VITALS: BP 107/65; BP 130/62; PULSE 64; RESP 14; TEMP 36.2; O2SAT 95
--- NOTE | 2023-09-17 07:53 | HP.PCM_ITS ---
History and Physical Date of Admission: 09/17/23 Intake Vital Signs 09/14/2313:05 09/01/2407:15 Height 5 ft 3 in 5 ft 3 in Weight: 175 lb BMI 30.9 BP 146/82 H Blood Pressure Location Rt brachial Position Sitting Respiration 18 Pulse 73 Pulse Source Monitor Temp 97.3 F L Temp Source Temporal Pulse Oximetry (%) 97 Oxygen Delivery Method room air Intake Visit Reasons: HX OF Barretts seen 2018 Chief Complaint: hx of barretts seen 2018 Manager Background Required: No Is patient in pain?: No Allergies Beta-Blockers (Beta-Adrenergic Bloc Adverse Reaction (Intermediate, Verified 09/01/23 08:15) UNK Medications amlodipine 5 mg tablet 10 mg PO DAILY blood pressure 05/18/16 [History Confirmed 09/01/23] lisinopril 20 mg tablet 20 mg PO DAILY blood pressure 05/18/16 [History Confirmed 09/01/23] multivitamin with folic acid 400 mcg tablet 1 tab PO DAILY supplement 08/05/16 [History Confirmed 09/01/23] magnesium hydroxide 400 mg/5 mL oral suspension 5 ml PO DAILY PRN 10/16/20 [History Confirmed 09/01/23] omega-3 fatty acids 1,000 mg capsule (Fish Oil Concentrate) 2,000 mg PO DAILY PRN 10/16/20 [History Confirmed 09/01/23] hydrochlorothiazide 12.5 mg tablet 12.5 mg PO DAILY 11/06/20 [History Confirmed 09/01/23] melatonin 3 mg capsule 3 mg PO QHS 09/14/22 [History Confirmed 09/01/23] triamcinolone acetonide 55 mcg nasal spray aerosol (Nasacort) intranasal 09/14/22 [History Confirmed 09/01/23] PFSH Medical History Chest pressure Epigastric pain Hiatal hernia HLD (hyperlipidemia) HTN (hypertension) Hypokalemia Kidney cysts Kidney tumor Pancreas cyst Thrombocytopenia Surgical History H/O vasectomy History of kidney surgery Family History Sister Diabetes Hypertension CAD (coronary artery disease)Father Hypertension Kidney diseaseMother HypertensionBrother Seizures Social History Smoking Status: Never smoker second hand exposure: No alcohol intake: never substance use type: does not use anand/buddhist: Oriental Orthodox HPI HPI HPI: Patient is a 67-year-old male here for reflux and history of Grove's. Patient reports he is not having any reflux he is no longer on a PPI. He does not have any complaints and is here for surveillance EGD. ROS General General: No weight change, appetite, fatigue, colon cancer, breast cancer or weakness HEENT HEENT: No difficulty swallowing, eye injury, eye surgery, swollen glands or hoarseness Endo Endocrine: No thyroid disease, diabetes mellitus, thyroid cancer, Hair loss, heat intolerance or cold intolerance Skin Skin: No rash or changing moles Musc Musculoskeletal: Yes back problems; No arthritis, rheumatoid arthritis, gout or joint pain Cardio Cardiovascular: Yes murmur and high blood pressure; No pacemaker, heart disease, atrial fibrillation, heart attack, heart stent, palpitations, shortness of breat with exertion or chest pain Psych Psychiatric: No depression, anxiety or hearing voices Resp Respiratory: No shortness of breath, No sleep apnea, No cough, No COPD, No asthma, No emphysema and No wheezing Gastro Gastrointestinal: Yes abdominal pain, No nausea or vomiting, No diarrhea, No constipation, No blood in stool, No acid reflux, No hemorrhoids, No ulcers, No gallbladder problem and No black,tarry stools Avelino Hematologic: No blood thinners, Yes blood disorders, No bleeding, No anemia and No blood clots Additional Details: thrombocytopenia Neuro Neurologic: No numbness, No tingling and No weakness Exam Const General: cooperative Orientation: alert and oriented x3 HENMT Head: normal to inspection Neck Neck: normal visual inspection and full ROM Chest Chest palpation & inspection: normal inspection of the chest Resp Effort & Inspection: normal respiratory effort Auscultation: clear to auscultation bilaterally Cardio Rate: regular rate Rhythm: regular rhythm GI Inspection: non-distended Palpation: soft and nontender Skin General: no rashes or lesions noted Neuro General: patient alert and patient oriented x3 Extrem General: full ROM Psych Appearance: grossly normal Mental Status: mental status grossly normal Assessment and Plan Assessment and Plan (1) 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 He is due for surveillance EGD for Grove's biopsies. I explained endoscopy in detail to the patient. I explained the risks including but not limited to stroke or heart attack with anesthesia, perforation of the GI tract, bleeding, infection. I explained that any of these could necessitate further emergency surgery. The patient understands and all questions were answered sufficiently. The patient wishes to proceed with procedure. Cleveland Villanueva MD Pager: [facility] [address] [place] [address] [address] [place] [address] Office: I have examined the patient and the H&P has been reviewed. There are no clinical changes since date of exam.
[2023-09-17 07:55] VITALS: BP 130/62; BP 99/68; PULSE 56; RESP 14; O2SAT 95
[2023-09-17 08:00] VITALS: BP 105/66; BP 130/62; PULSE 55; RESP 14; O2SAT 94
--- NOTE | 2023-09-17 08:02 | OP.CCLET_ITS ---
09/17/2023 Mohan Tobias [address] [place] [address] Re : Upper GI endoscopy procedure for Kev Whitmore Dear Dr. Tobias This procedure was performed on Sunday, September 17, 2023. My impressions and recommendations are as follows: Impressions : - Esophageal mucosal changes secondary to established short-segment Grove's disease. Biopsied. - Oozing gastric ulcers. Biopsied. Recommendations : - Discharge patient to home. - Resume previous diet. - Continue present medications. - Use Prilosec (omeprazole) 40 mg PO daily for 6 weeks. My findings are described in the full procedure note, which is enclosed. If I can be of further assistance, please feel free to contact me at Doctor phone number(s): , Work: . Sincerely, Cleveland Villanueva MD 09/17/2023 8:02:08 AM This report has been signed electronically.
--- NOTE | 2023-09-17 08:02 | OP.EGD_ITS ---
Patient Name: Kev Whitmore Procedure Date: 09/17/2023 7:24 AM Date of : 1955 Age: 68 Procedure: Upper GI endoscopy Indications: Heartburn, Follow-up of Grove's esophagus Providers: Cleveland Villanueva MD Referring MD: Mohan Tobias Medicines: Propofol per Anesthesia Patient Profile: This is a 68 year old male. Refer to note in patient chart for documentation of history and physical. Complications: No immediate complications. Estimated blood loss: Minimal. Procedure: Pre-Anesthesia Assessment: - Prior to the procedure, a History and Physical was performed, and patient medications and allergies were reviewed. The patient's tolerance of previous anesthesia was also reviewed. The risks and benefits of the procedure and the sedation options and risks were discussed with the patient. All questions were answered, and informed consent was obtained. Prior Anticoagulants: The patient has taken no anticoagulant or antiplatelet agents. After reviewing the risks and benefits, the patient was deemed in satisfactory condition to undergo the procedure. After obtaining informed consent, the endoscope was passed under direct vision. Throughout the procedure, the patient's blood pressure, pulse, and oxygen saturations were monitored continuously. The Endoscope was introduced through the mouth, and advanced to the second part of duodenum. The patient tolerated the procedure well. The upper GI endoscopy was accomplished without difficulty. The patient tolerated the procedure well. Scope In: 7:41:40 AM Scope Out: 7:46:31 AM Total Procedure Duration Time 0 hours 4 minutes 51 seconds Findings: There were esophageal mucosal changes secondary to established short-segment Grove's disease present at the gastroesophageal junction. Mucosa was biopsied with a cold forceps for histology in 4 quadrants at intervals of 1 cm at the gastroesophageal junction. One specimen bottle was sent to pathology. Few oozing superficial gastric ulcers were found at the pylorus. Biopsies were taken with a cold forceps for Helicobacter pylori testing. Impression: - Esophageal mucosal changes secondary to established short-segment Grove's disease. Biopsied. - Oozing gastric ulcers. Biopsied. Recommendation: - Discharge patient to home. - Resume previous diet. - Continue present medications. - Use Prilosec (omeprazole) 40 mg PO daily for 6 weeks. Procedure Code(s): --- Professional --- 27326, Esophagogastroduodenoscopy, flexible, transoral; with biopsy, single or multiple Diagnosis Code(s): --- Professional --- K22.70, Grove's esophagus without dysplasia K25.4, Chronic or unspecified gastric ulcer with hemorrhage R12, Heartburn CPT copyright 2021 [employer] [place] [employer] [employer]. All rights reserved. The codes documented in this report are preliminary and upon calibration specialist review may be revised to meet current compliance requirements. Cleveland Villanueva MD 09/17/2023 8:02:08 AM This report has been signed electronically. Number of Addenda: 0 Note Initiated On: 09/17/2023 7:24 AM
[2023-09-17 08:05] VITALS: BP 110/73; BP 130/62; PULSE 51; RESP 14; TEMP 36.3; O2SAT 98
[2023-09-17 08:26] VITALS: BP 130/62
== END 2023-09-17 08:32 | disposition home or self-care (01) ==
LOC: EN 06:19 → AC 06:20
PROVIDERS: PCP Family Medicine; Referring Provider Family Medicine; Visit Provider Surgery
PROC: 0DJ08ZZ Inspection of Upper Intestinal Tract, Via Natural or Artificial Opening Endoscopic (ICD-10-PCS; CPT 43235; principal; 2023-09-17 07:25)
DX: K22.70 Barrett's esophagus without dysplasia (principal); K25.9 Gastric ulcer, unspecified as acute or chronic, without hemorrhage or perforation; I10 Essential (primary) hypertension; K29.70 Gastritis, unspecified, without bleeding; R73.03 Prediabetes; K21.9 Gastro-esophageal reflux disease without esophagitis; Z79.899 Other long term (current) drug therapy
CPT/HCPCS: 43239; 88305; 88313; 88342; J7120; J2405

== ENCOUNTER → 2023-11-18 | Outpatient (CLI) | payer MEDICARE, OTHER, SELFPAY ==
[2023-11-18 10:56] LABS: Bacteria 0 SEEN /hpf (None Seen); Mucous, Urine 0 SEEN /hpf (<or=2+); Red Blood Cells-Urine 0 SEEN /hpf (0-5); Squamous Epithelial Cells - UA 0 SEEN /hpf (0-5); White Blood Cells 0 SEEN /hpf (0-5)
[2023-11-18 12:08] LABS: Absolute Lymphocyte Count 2.78 X10^3/uL (0.83-4.51); Absolute Neutrophil Count 1.4 X10^3/uL (2.0-7.7); Basophil# 0.02 X10^3/uL; Basophil% 0.4 % (0-1); Eosinophil# 0.07 X10^3/uL; Eosinophils% 1.3 % (0-5); Hematocrit 42.4 % (40-54); Hemoglobin 14.9 g/dL (13.0-16.5); Lymphocyte # 2.78 X10^3/ul (0.83-4.51); Lymphocyte % 51.2 % (19-41); Mean Corp Hgb Conc 35.1 g/dL (32-36); Mean Corpuscular Hgb 33.2 pg (27.0-32.0); Mean Corpuscular Volume 94.4 fL (80-94); Mean Platelet Vol. 9.6 fl (6.2-12.0); Monocyte# 1.11 X10^3/uL; Monocyte% 20.4 % (0-10); NRBC Flagged by Analyzer 0 % (0-5); Neutrophil # 1.42 X10^3/uL (2.7-7.7); Neutrophil % 26.1 % (47-70); Platelet Count 105 K/mm3 (150-450); RBC Distribution Width CV 12.7 % (11.6-14.6); RBC Distribution Width SD 43.8 fl (35.1-43.9); Red Blood Count 4.49 M/mm3 (4.6-6.2); White Blood Count 5.4 K/mm3 (4.4-11.0)
[2023-11-18 12:11] LABS: Color, Urine Yellow (Yellow); Glucose, Dipstick Normal (Normal); Ketone-Dipstick Negative (Negative); Leukocyte Esterase-Dipstick Negative /ul (Negative); Nitrite-Dipstick Negative (Negative); Occult Blood-Urine Negative /ul (Negative); Protein-Dipstick Negative (Negative); Specific Gravity, Urine 1.015 (1.002-1.030); Urine Bilirubin Dipstick Negative (Negative); Urine Clarity Clear (Clear); Urine Urobilinogen Normal (Normal)
[2023-11-18 13:15] LABS: AST(SGOT) 18 U/L (15-37); Alanine Aminotransfer ALT/SGPT 20 U/L (16-61); Albumin, Serum 3.8 g/dL (3.2-5.0); Alkaline Phosphatase 115 U/L (45-117); Anion Gap 8 (5-15); BUN 22 mg/dL (7-18); BUN/Creat Ratio 18.8 RATIO (10-20); Chloride 104 mmol/L (98-107); Cholesterol 183 mg/dL (200); Creatinine, Serum 1.17 mg/dL (0.70-1.30); EST Glomerular Filtration Rate 66 mL/min (>60); Est Glom Filt Rate - Afr Amer 80 mL/min (>60); Globulin 3.7 g/dL (2.2-4.2); Glucose 119 mg/dL (74-106); High Density Lipoprotein 38 mg/dL; Potassium 3.4 mmol/L (3.5-5.1); Protein, Total 7.5 g/dL (6.4-8.2); Sodium Level 137 mmol/L (136-145); Thyroid Stim Hormone (TSH) 1.93 uIU/mL (0.358-3.74); Triglycerides 281 mg/dL; Very Low Density Lipoprotein 56 mg/dL (5-40)
== END | disposition home or self-care (01) ==
LOC: MFPLAB 10:51
PROVIDERS: PCP Family Medicine; Visit Provider Family Medicine
DX: R73.02 Impaired glucose tolerance (oral) (principal); E78.5 Hyperlipidemia, unspecified; I10 Essential (primary) hypertension
CPT/HCPCS: 36415; 80053; 80061; 81001; 83036; 84443; 85025

== ENCOUNTER → 2024-03-23 | Outpatient (CLI) | payer MEDICARE, OTHER, SELFPAY ==
[2024-03-23 12:15] LABS: Cholesterol 166 mg/dL (200); High Density Lipoprotein 40 mg/dL; Triglycerides 306 mg/dL; Very Low Density Lipoprotein 61 mg/dL (5-40)
[2024-03-23 14:30] LABS: Hemoglobin A1c 6.2 % (3.8-5.6)
== END | disposition home or self-care (01) ==
PROVIDERS: PCP Family Medicine; Referring Provider Family Medicine; Visit Provider Family Medicine
DX: R73.02 Impaired glucose tolerance (oral) (principal); E78.5 Hyperlipidemia, unspecified
CPT/HCPCS: 36415; 80061; 83036

== ENCOUNTER → 2024-05-03 | Outpatient (CLI) | payer MEDICARE, OTHER, SELFPAY ==
[2024-05-03 12:33] LABS: Hemoglobin A1c 6.2 % (3.8-5.6)
[2024-05-03 12:37] LABS: Absolute Lymphocyte Count 2.22 X10^3/uL (0.83-4.51); Absolute Neutrophil Count 1.3 X10^3/uL (2.0-7.7); Basophil# 0.01 X10^3/uL; Basophil% 0.2 % (0-1); Eosinophil# 0.06 X10^3/uL; Eosinophils% 1.3 % (0-5); Hematocrit 40.2 % (40-54); Hemoglobin 14.3 g/dL (13.0-16.5); Lymphocyte # 2.22 X10^3/ul (0.83-4.51); Lymphocyte % 47.3 % (19-41); Mean Corp Hgb Conc 35.6 g/dL (32-36); Mean Corpuscular Volume 95.5 fL (80-94); Mean Platelet Vol. 9.5 fl (6.2-12.0); Monocyte# 1.06 X10^3/uL; Monocyte% 22.6 % (0-10); NRBC Flagged by Analyzer 0 % (0-5); Neutrophil # 1.31 X10^3/uL (2.7-7.7); Platelet Count 103 K/mm3 (150-450); RBC Distribution Width CV 12.9 % (11.6-14.6); Red Blood Count 4.21 M/mm3 (4.6-6.2); White Blood Count 4.7 K/mm3 (4.4-11.0)
[2024-05-03 12:58] LABS: ALB/GLOB Ratio 1.1 RATIO (0.9-2.4); AST(SGOT) 16 U/L (15-37); Alanine Aminotransfer ALT/SGPT 30 U/L (16-61); Albumin, Serum 3.7 g/dL (3.2-5.0); Alkaline Phosphatase 95 U/L (45-117); Anion Gap 5 (5-15); BUN 22 mg/dL (7-18); BUN/Creat Ratio 19.8 RATIO (10-20); Calcium,Total 9.1 mg/dL (8.5-10.1); Chloride 106 mmol/L (98-107); Cholesterol 160 mg/dL (200); Creatinine, Serum 1.11 mg/dL (0.70-1.30); EST Glomerular Filtration Rate 70 mL/min (>60); Est Glom Filt Rate - Afr Amer 85 mL/min (>60); Globulin 3.5 g/dL (2.2-4.2); Glucose 122 mg/dL (74-106); High Density Lipoprotein 36 mg/dL; Magnesium 2.4 mg/dL (1.6-2.6); PSA,Total - Annual Screen 1.38 ng/mL (0.00-4.00); Potassium 3.5 mmol/L (3.5-5.1); Protein, Total 7.2 g/dL (6.4-8.2); Sodium Level 139 mmol/L (136-145); Triglycerides 287 mg/dL; Very Low Density Lipoprotein 57 mg/dL (5-40)
[2024-05-03 13:04] LABS: Microalbumin,Random Urine 18.8 mg/L (NO RANGE EST.)
== END | disposition home or self-care (01) ==
LOC: MFPLAB 10:55
PROVIDERS: PCP Family Medicine; Referring Provider Family Medicine; Visit Provider Family Medicine
DX: I10 Essential (primary) hypertension (principal); R73.02 Impaired glucose tolerance (oral); Z12.5 Encounter for screening for malignant neoplasm of prostate
CPT/HCPCS: 36415; 80053; 80061; 82043; 83036; 83735; 84153; 84443; 85025; G0103

== ENCOUNTER → 2024-09-07 | Outpatient (CLI) | payer MEDICARE, OTHER, SELFPAY ==
[2024-09-07 10:04] LABS: Bacteria 0 SEEN /hpf (None Seen); Mucous, Urine 0 SEEN /hpf (<or=2+); Red Blood Cells-Urine 0 SEEN /hpf (0-5); Squamous Epithelial Cells - UA 0 SEEN /hpf (0-5); White Blood Cells 0 SEEN /hpf (0-5)
[2024-09-07 12:44] LABS: Absolute Lymphocyte Count 2.41 X10^3/uL (0.83-4.51); Absolute Neutrophil Count 1.4 X10^3/uL (2.0-7.7); Basophil# 0.02 X10^3/uL; Basophil% 0.4 % (0-1); Eosinophil# 0.05 X10^3/uL; Hematocrit 39.3 % (40-54); Hemoglobin 14.5 g/dL (13.0-16.5); Lymphocyte # 2.41 X10^3/ul (0.83-4.51); Lymphocyte % 47.5 % (19-41); Mean Corp Hgb Conc 36.9 g/dL (32-36); Mean Corpuscular Hgb 34.7 pg (27.0-32.0); Mean Platelet Vol. 9.6 fl (6.2-12.0); Monocyte# 1.13 X10^3/uL; Monocyte% 22.3 % (0-10); NRBC Flagged by Analyzer 0 % (0-5); Neutrophil # 1.42 X10^3/uL (2.7-7.7); Platelet Count 104 K/mm3 (150-450); RBC Distribution Width SD 44.7 fl (35.1-43.9); Red Blood Count 4.18 M/mm3 (4.6-6.2); White Blood Count 5.1 K/mm3 (4.4-11.0)
[2024-09-07 12:54] LABS: Color, Urine Yellow (Yellow); Glucose, Dipstick Normal (Normal); Ketone-Dipstick Negative (Negative); Leukocyte Esterase-Dipstick Negative /ul (Negative); Nitrite-Dipstick Negative (Negative); Occult Blood-Urine 10 /ul (Negative); Protein-Dipstick 15 mg/dl (Negative); Urine Bilirubin Dipstick Negative (Negative); Urine Clarity Clear (Clear); Urine Urobilinogen Normal (Normal)
[2024-09-07 13:17] LABS: Hemoglobin A1c 6.5 % (<=5.6)
[2024-09-07 13:22] LABS: ALB/GLOB Ratio 1.4 RATIO (0.9-2.4); AST(SGOT) 17 U/L (<=37); Alanine Aminotransfer ALT/SGPT 14 U/L (<=46); Alkaline Phosphatase 97 U/L (40-129); Anion Gap 11 (5-15); BUN 20 mg/dL (4-19); BUN/Creat Ratio 18.1 RATIO (10-20); Calcium,Total 9.4 mg/dL (7.6-11.0); Carbon Dioxide 26.2 mmol/L (21.0-32.0); Chloride 102 mmol/L (98-108); Cholesterol 165 mg/dL (<=200); Creatinine, Serum 1.09 mg/dL (0.70-1.20); EST Glomerular Filtration Rate 74 (>60); Globulin 2.9 g/dL (2.2-4.2); Glucose 113 mg/dL (70-99); High Density Lipoprotein 36 mg/dL; Low Density Lipoprotein Calc. 83 mg/dL; Magnesium 2.1 mg/dL (1.5-2.2); PSA,Total - Annual Screen 3.01 ng/mL (0.02-4.00); Potassium 3.6 mmol/L (3.3-5.1); Protein, Total 6.9 g/dL (5.9-8.4); Sodium Level 140 mmol/L (133-145); Total Bilirubin 0.68 mg/dL (0.00-1.30); Triglycerides 230 mg/dL; Very Low Density Lipoprotein 46 mg/dL (5-40); cholesterol:hdl ratio screen 4.55
== END | disposition home or self-care (01) ==
LOC: MTLAB 09:50
PROVIDERS: PCP Family Medicine; Referring Provider Family Medicine; Visit Provider Family Medicine
DX: I10 Essential (primary) hypertension (principal); R73.02 Impaired glucose tolerance (oral); Z12.5 Encounter for screening for malignant neoplasm of prostate
CPT/HCPCS: 80053; 80061; 81001; 83036; 83735; 84153; 84443; 85025; G0103

== ENCOUNTER → 2024-11-06 | Outpatient (CLI) | payer MEDICARE, OTHER, SELFPAY ==
[2024-11-08 17:07] LABS: H.Pylori Breath Test Negative (Negative)
== END | disposition home or self-care (01) ==
LOC: LAB 09:42
PROVIDERS: PCP Family Medicine; Referring Provider Family Medicine; Visit Provider Family Medicine
DX: A04.8 Other specified bacterial intestinal infections (principal)
CPT/HCPCS: 83013

== ENCOUNTER → 2024-12-19 | Outpatient (CLI) | payer MEDICARE, OTHER, SELFPAY ==
[2024-12-19 10:52] LABS: Mucous, Urine 0 SEEN /hpf (<or=2+); Red Blood Cells-Urine 0 SEEN /hpf (0-5); Squamous Epithelial Cells - UA 0 SEEN /hpf (0-5)
[2024-12-19 12:31] LABS: Color, Urine Yellow (Yellow); Glucose, Dipstick Normal (Normal); Ketone-Dipstick 5 mg/dl (Negative); Leukocyte Esterase-Dipstick Negative /ul (Negative); Nitrite-Dipstick Negative (Negative); Occult Blood-Urine 10 /ul (Negative); Protein-Dipstick Negative (Negative); Specific Gravity, Urine 1.010 (1.002-1.030); Urine Bilirubin Dipstick Negative (Negative)
[2024-12-19 13:01] LABS: Creatinine, Urine (random) 85.20 mg/dL (39.00-259.00); Microalbumin,Random Urine < 12.0 mg/L (<20 mg/L)
[2024-12-19 15:28] LABS: Hematocrit 41.2 % (40-54); Hemoglobin 14.8 g/dL (13.0-16.5); Immature Granulocytes Count 0.040 X10^3/uL (0.0-0.0); Mean Corp Hgb Conc 35.9 g/dL (32-36); Mean Corpuscular Volume 94.7 fL (80-94); Mean Platelet Vol. 10.2 fl (6.2-12.0); NRBC Flagged by Analyzer 0.5 % (0-5); POSITIVE COUNT YES; Platelet Count 83 K/mm3 (150-450); RBC Distribution Width CV 13.4 % (11.6-14.6); RBC Distribution Width SD 46.6 fl (35.1-43.9); Red Blood Count 4.35 M/mm3 (4.6-6.2); White Blood Count 4.3 K/mm3 (4.4-11.0)
[2024-12-19 16:36] LABS: AST(SGOT) 19 U/L (<=37); Alanine Aminotransfer ALT/SGPT 16 U/L (<=46); Albumin, Serum 4.0 g/dL (3.4-4.8); Alkaline Phosphatase 101 U/L (40-129); Anion Gap 12 (5-15); BUN 18 mg/dL (4-19); BUN/Creat Ratio 17.0 RATIO (10-20); Calcium,Total 9.4 mg/dL (7.6-11.0); Carbon Dioxide 25.0 mmol/L (21.0-32.0); Chloride 104 mmol/L (98-108); Cholesterol 124 mg/dL (<=200); Globulin 3.0 g/dL (2.2-4.2); Glucose 104 mg/dL (70-99); Low Density Lipoprotein Calc. 54 mg/dL; Potassium 3.7 mmol/L (3.3-5.1); Triglycerides 172 mg/dL; Very Low Density Lipoprotein 34 mg/dL (5-40); cholesterol:hdl ratio screen 3.45
== END | disposition home or self-care (01) ==
LOC: MFPLAB 10:48
PROVIDERS: PCP Family Medicine; Referring Provider Family Medicine; Visit Provider Family Medicine
DX: E78.5 Hyperlipidemia, unspecified (principal); E11.8 Type 2 diabetes mellitus with unspecified complications; I10 Essential (primary) hypertension
CPT/HCPCS: 36415; 80053; 80061; 81001; 82043; 82570; 83036; 85025

== ENCOUNTER → 2025-04-12 | Outpatient (CLI) | payer MEDICARE, OTHER, SELFPAY ==
[2025-04-12 12:24] LABS: Hematocrit 39.0 % (40-54); Hemoglobin 13.9 g/dL (13.0-16.5); Immature Granulocytes Count 0.030 X10^3/uL (0.0-0.0); Mean Corp Hgb Conc 35.6 g/dL (32-36); Mean Corpuscular Volume 94.0 fL (80-94); Mean Platelet Vol. 9.8 fl (6.2-12.0); NRBC Flagged by Analyzer 0 % (0-5); POSITIVE COUNT YES; Platelet Count 88 K/mm3 (150-450); RBC Distribution Width CV 13.0 % (11.6-14.6); RBC Distribution Width SD 44.2 fl (35.1-43.9); Red Blood Count 4.15 M/mm3 (4.6-6.2); White Blood Count 4.2 K/mm3 (4.4-11.0)
--- OUTSIDE RECORDS SUMMARY | 2025-04-12 12:42 | XMS RPT_ITS | CCD ---
Author Organization [facility] Team Providers Care Diamond Cleaver Name Role Phone Dr. Durga Davis Attending Provider Dr. Mohan Tobias Primary Care Provider Dr. Mohan Tobias Referring Provider Dr. Sofía Sanchez Attending Provider [phone] Dr. Mohan Tobias Primary Care Provider [phone] Dr. Mohan Tobias Referring Provider Dr. Durga Davis Attending Provider Dr. Mohan Tobias Primary Care Provider [phone] Dr. Mohan Tobias Referring Provider Dr. Cleveland Vilalnueva Attending Provider Dr. Durga Davis Attending Provider Dr. Cleveland Villanueva Other Provider Dr. Mohan Tobias MD Primary Care Provider [phone] Dr. Mohan Tobias MD Attending Provider [phone] Dr. Mohan Tobias MD Referring Provider Dr. Durga Davis MD Attending Provider [phone] Mohan Boyer MD Primary Care Provider Dr. Durga Davis MD Referring Provider Mohan Tobias Attending Unavailable Mohan Tobias Referring Unavailable Mohan Tobias Primary Care Unavailable Mohan Tobias Attending Unavailable Mohan Tobias Referring Unavailable Mohan Tobias Primary Care Unavailable Durga Davis Attending Unavailable Mohan Tobias Primary Care Unavailable Mohan Tobias Referring Unavailable Durga Davis Attending Unavailable Mohan Tobias Referring Unavailable Mohan Tobias Primary Care Unavailable Durga Davis Attending Unavailable Mohan Boyer Primary Care Unavailable Durga Davis Referring Unavailable Mohan Tobias Attending Unavailable Mohan Tobias Referring Unavailable Mohan Tobias Primary Care Unavailable Mohan Tobias Attending Unavailable Mohan Tobias Referring Unavailable Mohan Tobias Primary Care Unavailable Mohan Tobias Attending Unavailable Mohan Tobias Primary Care Unavailable Mohan Tobias Referring Unavailable Allergies Allergy Classification Reported Allergen(s) Allergy Type Date of Onset Reaction(s) Facility (20 sources) Beta-Blockers (Beta-Adrenergic Bloc; Translations: [Beta-Blockers (Beta-Adrenergic Bloc] Propensity to adverse reactions 03-10-2021 [facility] Medications Current Medications Medication Drug Class(es) Dates Sig (Normalized) Sig (Original) amLODIPine 5 mg oral tablet (19 sources) Dihydropyridine Calcium Channel Reyna Start: 05-18-2016 take 2 tablets by mouth once daily Amlodipine 5 MG tablet Active 10 mg PO DAILY May 18, 2016 1:00am blood pressure Start: 05-18-2016 take 10 mg by mouth once daily Amlodipine Active 10 MG PO DAILY May 18, 2016 1:00am hydroCHLOROthiazide 12.5 mg oral tablet (19 sources) Thiazide Diuretic Start: 11-06-2020 take 1 tablet by mouth once daily Hydrochlorothiazide 12.5 mg tablet Active 12.5 mg PO DAILY November 06, 2020 12:00am lisinopril 20 mg oral tablet (20 sources) Angiotensin Converting Enzyme Inhibitor Start: 09-13-2023 take 1 tablet by mouth twice daily Lisinopril 20 mg tablet Active 20 mg PO TWICE A DAY September 13, 2023 3:01pm blood pressure Start: 05-18-2016 End: 09-13-2023 take 1 tablet by mouth once daily Lisinopril 20 MG tablet Discontinued 20 mg PO DAILY May 18, 2016 1:00am September 13, 2023 3:02pm blood pressure magnesium glycinate 100 mg o ral tablet (4 sources) Start: 09-14-2023 Magnesium Glyc inate 100 mg tablet Active 200 mg PO DAILY September 14, 2023 12:00am Start: 09-14-2023 take 200 mg by mouth once joby y Magnesium Glycinate Active 200 MG PO DAILY September 14, 2023 12:00am Magnesium Hydroxide (19 sources) Start: 10-16-2020 take 1 mL by mouth once daily as needed Magnesium Hydroxide 400 mg/5 mL suspension Active 5 mL PO DAILY NEEDED as needed for stomach upset October 16, 2020 12:00am Start: 10-16-2020 take 1 mL by mouth o nce daily as needed Magnesium Hydroxide Active 5 ML PO DAILY NEEDED October 16, 2020 12:00am Start: 10-16-2020 take 1 mL by mouth once daily Magnesium Hydroxide Active 5 ML PO DAILY October 16, 2020 12:00am melatonin 3 mg oral capsule (8 sources) Start: 09-14-2022 take 1 capsule by mouth at bedtime Melatonin 3 mg Capsule Active 3 mg PO AT BEDTIME September 14, 2022 12:00am Multivitamin With Folic Acid (16 sources) Start: 08-05-2016 take 1 tablet by mouth once daily Multivitamin With Folic Acid Active 1 TABLET PO DAILY August 05, 2016 2:20am Start: 08-05-2016 take 1 tablet by francisco th once daily Multivitamin With Folic Acid Active 1 TABLET PO DAILY August 05, 2016 12:00am Start: 08-05-2016 take 1 tablet by francisco th once daily Multivitamin With Folic Acid Active 1 TABLET PO DAILY August 05, 2016 1:00am Multivitamin With Folic Acid 1 TABLET tablet (3 sources) Start: 08-05-2016 take 1 tablet by mouth once daily Multivitamin With Folic Acid 1 TABLET tablet Active 1 {tbl} PO DAILY August 05, 2016 1:00am supplement Start: 08-05-2016 take 1 tablet by francisco th once daily Multivitamin With Folic Acid 1 TABLET tablet Active 1 {tbl} PO DAILY August 05, 2016 1:00am Waldron-3 Fatty Acids (Fish Oi l Concentrate) 1,000 mg capsule (19 sources) Start: 10-16-2020 Waldron-3 Fatty Acids (Fish Oil Concentrate) 1,000 mg capsule Active 2000 MG PO DAILY October 16, 2020 8:30am Start: 10-16-2020 End: 09-13-2023 Waldron-3 Fatty Acids (Fish Oi l Concentrate) 1,000 mg capsule Discontinued 2000 mg PO DAILY as needed October 16, 2020 12:00am September 13, 2023 3:02pm Start: 10-16-2020 End: 09-13-2023 Waldron-3 Fatty Acids (Fish Oi l Concentrate) 1,000 mg capsule Discontinued 2000 MG PO DAILY October 16, 2020 12:00am September 13, 2023 3:02pm Start: 10-16-2020 Waldron-3 Fatty Acids (Fish Oil Concentrate) 1,000 mg capsule Active 2000 MG PO DAILY October 15, 2020 11:00pm Start: 10-16-2020 Waldron-3 Fatty Acids (Fish Oil Concentrate) 1,000 mg capsule Active 2000 MG PO DAILY October 16, 2020 12:00am triamcinolone acetonide 0.055 mg/actuat metered dose nasal spray (8 sources) Corticosteroid Start: 09-14-2022 Triamcinolone Acetonide (Nasacort) 55 mcg Aerosol,[place] Active 1 NMA INTRANASAL DAILY NEEDED as needed for allergy symptoms September 14, 2022 12:00am Start: 09-14-2022 Triamcinolone Acetonide (Nasacort) 55 mcg Aerosol,[place] Active 1 SPRAY INTRANASAL DAILY NEEDED September 14, 2022 12:00am Start: 09-14-2022 Triamcinolone Acetonide (Nasacort) 55 mcg Aerosol,[place] Active INTRANASAL September 14, 2022 12:00am Completed/Discontinued Medications Medication Drug Class(es) Dates Sig (Normalized) Sig (Original) aspirin 81 mg chewable tablet (19 sources) Platelet Aggregation Inhibitor, Nonsteroidal Anti-inflammatory Drug Start: 10-16-2020 End: 09-14-2022 take 1 tablet by mouth once daily Aspirin 81 mg tablet,chewable Discontinued 81 mg PO DAILY October 16, 2020 12:00am September 14, 2022 2:03pm cephalexin 500 mg oral capsule (19 sources) Cephalosporin Antibacterial Start: 10-24-2017 End: 07-13-2018 take 1 capsule by mouth every six hours Cephalexin 500 MG capsule Discontinued 500 mg PO EVERY 6 HOURS 28 0 October 24, 2017 12:00am July 13, 2018 4:32pm dicyclomine hydrochloride 10 mg oral capsule (19 sources) Anticholinergic Start: 08-10-2016 End: 06-16-2017 take 1 capsule by mouth every six hours as needed Dicyclomine 10 MG capsule Discontinued 10 mg PO EVERY 6 HOURS NEEDED as needed for abdominal cramping 12 0 August 10, 2016 3:30am June 16, 2017 11:33am omeprazole 40 mg delayed release oral capsule (20 sources) Proton Pump Inhibitor Start: 09-17-2023 End: 01-21-2024 take 1 capsule by mouth once daily Omeprazole 40 mg capsule,delayed release(DR/EC) Discontinued 40 mg PO DAILY 30 2 December 29, 2023 12:23pm January 21, 2024 7:53am Start: 07-13-2018 End: 09-14-2022 take 1 capsule by mouth once daily as needed Omeprazole 20 mg capsule,delayed release(DR/EC) Discontinued 20 mg PO DAILY as needed for Indigestion July 13, 2018 1:00am September 14, 2022 2:04pm potassium chloride 20 meq extended release oral tablet (13 sources) Start: 09-13-2023 End: 06-27-2024 take 1 tablet by mouth once daily Potassium Chloride 20 mEq tablet extended release Discontinued 20 meq PO DAILY 30 6 January 21, 2024 8:33am June 27, 2024 5:14pm simvastatin 20 mg oral tablet (19 sources) HMG-CoA Reductase Inhibitor Start: 05-18-2016 End: 06-16-2017 take 1 tablet by mouth at bedtime Simvastatin 20 MG tablet Discontinued 20 mg PO AT BEDTIME May 18, 2016 1:00am June 16, 2017 11:34am spironolactone 25 mg oral tablet (18 sources) Aldosterone Antagonist Start: 09-08-2021 End: 09-14-2022 Spironolactone 25 mg tablet Discontinued 25 mg PO September 08, 2021 12:00am September 14, 2022 2:04pm Problems Active Problems Problem Classification Problem Date Documented Da te Episodic/Chronic Abdominal pain (20 sources) Epigastric pain; Translations: [Epigastric pain] 08-04-2017 Episodic Coagulation and hemorrhagic disorders (20 sources) Platelet count below reference range; Translations: [Thrombocytopenia, unspecified] Onset: 09-11-2024 Chronic Comment on above: On and off for a few years, no bleeding. PLT count is 93K today.No need for intervention at this time. Diseases of white blood cells (20 sources) Neutropenia; Translations: [Neutropenia, unspecified] Onset: 09-11-2024 Chronic Comment on above: Discussed differenti al diagnosis including drugs/bone marrow disorders again. No abnormal cells and asymptomatic.ANC 1.7 today. He does not want Bone marrow aspiration and biopsy now. Disorders of lipid metabolism (20 sources) Hyperlipidemia; Translations: [Hyperlipidemia, unspecified] Onset: 12-25-2024 08-04-2017 Chronic Esophageal disorders (20 sources) Gastro-esophageal reflux disease with esophagitis; Translations: [Gastroesophageal reflux disease with esophagitis] Onset: 09-16-2024 08-04-2017 Chronic Essential hypertension (20 sources) Hypertensive disorder; Translations: [Essential (primary) hypertension] Onset: 09-13-2024 08-04-2017 Chronic Fluid and electrolyte disorders (20 sources) Hypokalemia; Translations: [Hypokalemia] 08-04-2017 Episodic Comment on above: ON SUPPLEMENT Intestinal infection (1 source) Other specified bacterial intestinal infections; Translations: [Other specified bacterial intestinal infections] Onset: 11-09-2024 Episodic Nonspecific chest pain (19 sources) Chest discomfort; Translations: [Other chest pain] 08-04-2017 Episodic Other circulatory disease (10 sources) H/O: hypertension; Translations: [Personal history of other diseases of the circulatory system] 05-04-2022 Episodic Other diseases of kidney and ureters (19 sources) Renal mass; Translations: [Other specified disorders of kidney and ureter] 08-04-2017 Chronic Other upper respiratory infections (10 sources) Viral upper respiratory tract infection; Translations: [Acute upper respiratory infection, unspecified] 05-04-2022 Episodic Past or Other Problems Problem Classification Problem Date Documented Da te Episodic/Chronic Diabetes mellitus without complication (1 source) Impaired glucose tolerance (oral); Translations: [Impaired glucose tolerance (oral)] Onset: 04-12-2024 Episodic Other screening for suspected conditions (not mental disorders or infectious disease) (20 sources) Patient encounter status; Translations: [Encounter for screening for malignant neoplasm of colon] Onset: 09-11-2024 08-04-2017 Episodic Results Test Name Value Interpretation Reference Range Facility Absolute lymphocyte countOrd ered By: Mohan Tobias on 12-19-2024 Lymphocytes Auto (Unsp spec) [#/Vol] 2.29 10*3/uL 0.83-4.51 [facility] Absolute neutrophil countOrd ered By: Mohan Tobias on 12-19-2024 Neutrophils (Bld) [#/Vol] 1.2 10*3/uL Low 2.0-7.7 [facility] Anion gap in Serum or Plasma Ordered By: Mohan Tobias on 12-19-2024 Anion gap [Moles/Vol] 12 mmol/L 5-15 [facility] Automated lymphocyte count a s percentage of total leukocytesOrdered By: Mohan Tobias on 12-19-2024 Lymphocytes/100 WBC Auto (Unsp spec) 53.5 % High 19-41 [facility] BUN/creatinine ratioOrdered By: Mohan Tobias on 12-19-2024 Urea nitrogen/Creatinine [Mass ratio] 17.0 mg/mg 10-20 [facility] Basophil percentageOrdered B y: Mohan Tobias on 12-19-2024 Basophils/100 WBC (Bld) 0.2 % 0-1 [facility] Bilirubin Test strip Ql (U)O rdered By: Mohan Tobias on 12-19-2024 Bilirubin Ql (U) Negative Negative [facility] Bilirubin, totalOrdered By: Mohan Tobias on 12-19-2024 Bilirubin [Mass/Vol] 0.77 mg/dL 0.00-1.30 [facility] CBC W/Diff, Automatedon 11-29 Absolute Lymph 2.29 X10 3/uL Normal 0.83-4.51 [facility] Comment on above: Order Comment: Order Date: 09/19/24Order Info: [id number] - CBCD Performed By: #### L 506.0250, L501.6710, L503.6030, L504.2610, L5000.0012, L503.6550, L100.0100, L100.9950, L101.9900, L500.4050 #### [facility] [address] [place], [place], [address] Absolute Neut 1.2 X10 3/uL Low 2.0-7.7 [facility] Comment on above: Order Comment: Order Date: 09/19/24Order Info: [id number] - CBCD Performed By: #### L 506.0250, L501.6710, L503.6030, L504.2610, L5000.0012, L503.6550, L100.0100, L100.9950, L101.9900, L500.4050 #### [facility] [address] [place], [address] Basophils/100 WBC (Bld) 0.2 % Normal 0-1 [facility] Comment on above: Order Comment: Order Date: 09/19/24Order Info: [id number] - CBCD Performed By: #### L 506.0250, L501.6710, L503.6030, L504.2610, L5000.0012, L503.6550, L100.0100, L100.9950, L101.9900, L500.4050 #### [facility] [address] [place], [place], [phone] Eosinophils/100 WBC (Bld) 0.7 % Normal 0-5 [facility] Comment on above: Order Comment: Order Date: 09/19/24Order Info: [id number] - CBCD Performed By: #### L 506.0250, L501.6710, L503.6030, L504.2610, L5000.0012, L503.6550, L100.0100, L100.9950, L101.9900, L500.4050 #### [facility] [address] [place], [address] Erythrocyte distribution width (RBC) [Ratio] 13.4 % Normal 11.6-14.6 [facility] Comment on above: Order Comment: Order Date: 09/19/24Order Info: [id number] - CBCD Performed By: #### L 506.0250, L501.6710, L503.6030, L504.2610, L5000.0012, L503.6550, L100.0100, L100.9950, L101.9900, L500.4050 #### [facility] [address] [place], [place], [phone] Hematocrit (Bld) [Volume fraction] 41.2 % Normal 40-54 [facility] Comment on above: Order Comment: Order Date: 09/19/24Order Info: [id number] - CBCD Performed By: #### L 506.0250, L501.6710, L503.6030, L504.2610, L5000.0012, L503.6550, L100.0100, L100.9950, L101.9900, L500.4050 #### [facility] [address] [place], [place], [phone] ([phone]) Hemoglobin (Bld) [Mass/Vol] 14.8 g/dL Normal 13.0-16.5 [facility] Comment on above: Order Comment: Order Date: 09/19/24Order Info: [id number] - CBCD Performed By: #### L 506.0250, L501.6710, L503.6030, L504.2610, L5000.0012, L503.6550, L100.0100, L100.9950, L101.9900, L500.4050 #### [facility] [address] [place], [place], [phone] ([phone] IG% 0.900 Normal 0.0-0.9 [facility] Comment on above: Order Comment: Order Date: 09/19/24Order Info: [id number] - CBCD Result Comment: IG% - Immature Granulocytes (promyelocytes, myelocytes and metamyelocytes) > 1% indicates that a LEFT SHIFT is Present. Performed By: #### L 506.0250, L501.6710, L503.6030, L504.2610, L5000.0012, L503.6550, L100.0100, L100.9950, L101.9900, L500.4050 #### [facility] [address] [place], [place], [phone] ([phone]) Lymphocytes/100 WBC (Bld) 53.5 % High 19-41 [facility] Comment on above: Order Comment: Order Date: 09/19/24Order Info: [id number] - CBCD Performed By: #### L 506.0250, L501.6710, L503.6030, L504.2610, L5000.0012, L503.6550, L100.0100, L100.9950, L101.9900, L500.4050 #### [facility] [address] [place], [address] MCH (RBC) [Entitic mass] 34.0 pg High 27.0-32.0 [facility] Comment on above: Order Comment: Order Date: 09/19/24Order Info: [id number] - CBCD Performed By: #### L 506.0250, L501.6710, L503.6030, L504.2610, L5000.0012, L503.6550, L100.0100, L100.9950, L101.9900, L500.4050 #### [facility] [address] [place], [address] MCHC (RBC) [Mass/Vol] 35.9 g/dL Normal 32-36 [facility] Comment on above: Order Comment: Order Date: 09/19/24Order Info: [id number] - CBCD Performed By: #### L 506.0250, L501.6710, L503.6030, L504.2610, L5000.0012, L503.6550, L100.0100, L100.9950, L101.9900, L500.4050 #### [facility] [address] [place], [address] MCV (RBC) [Entitic vol] 94.7 fL High 80-94 [facility] Comment on above: Order Comment: Order Date: 09/19/24Order Info: [id number] - CBCD Performed By: #### L 506.0250, L501.6710, L503.6030, L504.2610, L5000.0012, L503.6550, L100.0100, L100.9950, L101.9900, L500.4050 #### [facility] [address] [place], [address] Monocytes/100 WBC (Bld) 17.5 % High 0-10 [facility] Comment on above: Order Comment: Order Date: 09/19/24Order Info: [id number] - CBCD Performed By: #### L 506.0250, L501.6710, L503.6030, L504.2610, L5000.0012, L503.6550, L100.0100, L100.9950, L101.9900, L500.4050 #### [facility] [address] [place], [address] Neutrophils/100 WBC (Bld) 27.2 % Low 47-70 [facility] Comment on above: Order Comment: Order Date: 09/19/24Order Info: [id number] - CBCD Performed By: #### L 506.0250, L501.6710, L503.6030, L504.2610, L5000.0012, L503.6550, L100.0100, L100.9950, L101.9900, L500.4050 #### [facility] [address] [place], [address] Nucleated RBC (Bld) [#/Vol] 0.5 10*3/uL Normal 0-5 [facility] Comment on above: Order Comment: Order Date: 09/19/24Order Info: [id number] - CBCD Performed By: #### L 506.0250, L501.6710, L503.6030, L504.2610, L5000.0012, L503.6550, L100.0100, L100.9950, L101.9900, L500.4050 #### [facility] [address] [place], [address] Platelet mean volume (Bld) [Entitic vol] 10.2 fL Normal 6.2-12.0 [facility] Comment on above: Order Comment: Order Date: 09/19/24Order Info: [id number] - CBCD Performed By: #### L 506.0250, L501.6710, L503.6030, L504.2610, L5000.0012, L503.6550, L100.0100, L100.9950, L101.9900, L500.4050 #### [facility] [address] [place], [address] Platelets (Bld) [#/Vol] 83 10*3/uL Low 150-450 [facility] Comment on above: Order Comment: Order Date: 09/19/24Order Info: [id number] - CBCD Performed By: #### L 506.0250, L501.6710, L503.6030, L504.2610, L5000.0012, L503.6550, L100.0100, L100.9950, L101.9900, L500.4050 #### [facility] [address] [place], [address] RBC (Bld) [#/Vol] 4.35 10*6/uL Low 4.6-6.2 [facility] Comment on above: Order Comment: Order Date: 09/19/24Order Info: [id number] - CBCD Performed By: #### L 506.0250, L501.6710, L503.6030, L504.2610, L5000.0012, L503.6550, L100.0100, L100.9950, L101.9900, L500.4050 #### [facility] [address] [place], [address] RDW SD 46.6 fl High 35.1-43.9 [facility] Comment on above: Order Comment: Order Date: 09/19/24Order Info: [id number] - CBCD Performed By: #### L 506.0250, L501.6710, L503.6030, L504.2610, L5000.0012, L503.6550, L100.0100, L100.9950, L101.9900, L500.4050 #### [facility] [address] [place], [place], [phone] WBC (Bld) [#/Vol] 4.3 10*3/uL Low 4.4-11.0 [facility] Comment on above: Order Comment: Order Date: 09/19/24Order Info: [id number] - CBCD Performed By: #### L 506.0250, L501.6710, L503.6030, L504.2610, L5000.0012, L503.6550, L100.0100, L100.9950, L101.9900, L500.4050 #### [facility] [address] [facility] [place], [place], [address] Calculated very low density lipoprotein (VLDL) cholesterol measurementOrdered By: Mohan Tobias on 12-19-2024 Calculated very low density lipoprotein (VLDL) cholesterol measurement 34 mg/dL 5-40 [facility] Carbon dioxide, total [Moles /volume] in Central venous bloodOrdered By: Mohan Tobias on 12-19-2024 CO2 [Moles/Vol] 25.0 mmol/L 21.0-32.0 [facility] Chloride assayOrdered By: Sofie Tobias on 12-19-2024 Chloride [Moles/Vol] 104 mmol/L 98-108 [facility] Comprehensive Metabolic Prof ilon 12-19-2024 Albumin [Mass/Vol] 4.0 g/dL Normal 3.4-4.8 [facility] Comment on above: Order Comment: Order Date: 09/19/24Order Info: [id number] - CMPOrder Info: [id number] - LIPID Performed By: #### L 506.0250, L501.6710, L503.6030, L504.2610, L5000.0012, L503.6550, L100.0100, L100.9950, L101.9900, L500.4050 #### [facility] [address] [place], [address] Albumin/Globulin [Mass ratio] 1.3 {ratio} Normal 0.9-2.4 [facility] Comment on above: Order Comment: Order Date: 09/19/24Order Info: [id number] - CMPOrder Info: [id number] - LIPID Performed By: #### L 506.0250, L501.6710, L503.6030, L504.2610, L5000.0012, L503.6550, L100.0100, L100.9950, L101.9900, L500.4050 #### [facility] [address] [place], [address] ALK PHOS 101 U/L Normal 40-129 [facility] Comment on above: Order Comment: Order Date: 09/19/24Order Info: [id number] - CMPOrder Info: [id number] - LIPID Performed By: #### L 506.0250, L501.6710, L503.6030, L504.2610, L5000.0012, L503.6550, L100.0100, L100.9950, L101.9900, L500.4050 #### [facility] [address] [place], [place], [phone] ([phone] ALT [Catalytic activity/Vol] 16 U/L Normal <=46 [facility] Comment on above: Order Comment: Order Date: 09/19/24Order Info: [id number] - CMPOrder Info: [id number] - LIPID Performed By: #### L 506.0250, L501.6710, L503.6030, L504.2610, L5000.0012, L503.6550, L100.0100, L100.9950, L101.9900, L500.4050 #### [facility] [address] [place], [place], [phone] ([phone] AST [Catalytic activity/Vol] 19 U/L Normal <=37 [facility] Comment on above: Order Comment: Order Date: 09/19/24Order Info: [id number] - CMPOrder Info: [id number] - LIPID Performed By: #### L 506.0250, L501.6710, L503.6030, L504.2610, L5000.0012, L503.6550, L100.0100, L100.9950, L101.9900, L500.4050 #### [facility] [address] [place], [address] Bilirubin [Mass/Vol] 0.77 mg/dL Normal 0.00-1.30 [facility] Comment on above: Order Comment: Order Date: 09/19/24Order Info: [id number] - CMPOrder Info: [id number] - LIPID Performed By: #### L 506.0250, L501.6710, L503.6030, L504.2610, L5000.0012, L503.6550, L100.0100, L100.9950, L101.9900, L500.4050 #### [facility] [address] [place], [address] BUN/CRE 17.0 RATIO Normal 10-20 [facility] Comment on above: Order Comment: Order Date: 09/19/24Order Info: [id number] - CMPOrder Info: [id number] - LIPID Performed By: #### L 506.0250, L501.6710, L503.6030, L504.2610, L5000.0012, L503.6550, L100.0100, L100.9950, L101.9900, L500.4050 #### [facility] [address] [place], [address] Calcium [Mass/Vol] 9.4 mg/dL Normal 7.6-11.0 [facility] Comment on above: Order Comment: Order Date: 09/19/24Order Info: [id number] - CMPOrder Info: [id number] - LIPID Performed By: #### L 506.0250, L501.6710, L503.6030, L504.2610, L5000.0012, L503.6550, L100.0100, L100.9950, L101.9900, L500.4050 #### [facility] [address] [place], [address] Chloride [Moles/Vol] 104 mmol/L Normal 98-108 [facility] Comment on above: Order Comment: Order Date: 09/19/24Order Info: [id number] - CMPOrder Info: [id number] - LIPID Performed By: #### L 506.0250, L501.6710, L503.6030, L504.2610, L5000.0012, L503.6550, L100.0100, L100.9950, L101.9900, L500.4050 #### [facility] [address] [place], [place], [id number] CO2 [Moles/Vol] 25.0 mmol/L Normal 21.0-32.0 [facility] Comment on above: Order Comment: Order Date: 09/19/24Order Info: [id number] - CMPOrder Info: [id number] - LIPID Performed By: #### L 506.0250, L501.6710, L503.6030, L504.2610, L5000.0012, L503.6550, L100.0100, L100.9950, L101.9900, L500.4050 #### [facility] [address] [place], [place], [address] Creatinine [Mass/Vol] 1.05 mg/dL Normal 0.70-1.20 [facility] Comment on above: Order Comment: Order Date: 09/19/24Order Info: [id number] - CMPOrder Info: [id number] - LIPID Performed By: #### L 506.0250, L501.6710, L503.6030, L504.2610, L5000.0012, L503.6550, L100.0100, L100.9950, L101.9900, L500.4050 #### [facility] [address] [facility] [place], [place], [id number] GAP 12 Normal 5-15 [facility] Comment on above: Order Comment: Order Date: 09/19/24Order Info: [id number] - CMPOrder Info: [id number] - LIPID Performed By: #### L 506.0250, L501.6710, L503.6030, L504.2610, L5000.0012, L503.6550, L100.0100, L100.9950, L101.9900, L500.4050 #### [facility] [address] [place], [place], [id number] GFR/1.73 sq M.predicted among non-blacks MDRD (S/P/Bld) [Vol rate/Area] 78 mL/min/{1.73_m2} Normal >60 [facility] Comment on above: Order Comment: Order Date: 09/19/24Order Info: [id number] - CMPOrder Info: [id number] - LIPID Result Comment: mL/m in/1.73m2 CKD-EPI Creatinine Equation (2020) Performed By: #### L 506.0250, L501.6710, L503.6030, L504.2610, L5000.0012, L503.6550, L100.0100, L100.9950, L101.9900, L500.4050 #### [facility] [address] [place], [place], [address] Globulin (S) [Mass/Vol] 3.0 g/dL Normal 2.2-4.2 [facility] Comment on above: Order Comment: Order Date: 09/19/24Order Info: [id number] - CMPOrder Info: [id number] - LIPID Performed By: #### L 506.0250, L501.6710, L503.6030, L504.2610, L5000.0012, L503.6550, L100.0100, L100.9950, L101.9900, L500.4050 #### [facility] [address] [place], [address] Glucose [Mass/Vol] 104 mg/dL High 70-99 [facility] Comment on above: Order Comment: Order Date: 09/19/24Order Info: [id number] - CMPOrder Info: [id number] - LIPID Performed By: #### L 506.0250, L501.6710, L503.6030, L504.2610, L5000.0012, L503.6550, L100.0100, L100.9950, L101.9900, L500.4050 #### [facility] [address] [place], [address] Potassium [Moles/Vol] 3.7 mmol/L Normal 3.3-5.1 [facility] Comment on above: Order Comment: Order Date: 09/19/24Order Info: [id number] - CMPOrder Info: [id number] - LIPID Performed By: #### L 506.0250, L501.6710, L503.6030, L504.2610, L5000.0012, L503.6550, L100.0100, L100.9950, L101.9900, L500.4050 #### [facility] [address] [place], [address] Sodium [Moles/Vol] 140 mmol/L Normal 133-145 [facility] Comment on above: Order Comment: Order Date: 09/19/24Order Info: [id number] - CMPOrder Info: [id number] - LIPID Performed By: #### L 506.0250, L501.6710, L503.6030, L504.2610, L5000.0012, L503.6550, L100.0100, L100.9950, L101.9900, L500.4050 #### [facility] [address] [place], [place], [address] T PROT 7.0 g/dL Normal 5.9-8.4 [facility] Comment on above: Order Comment: Order Date: 09/19/24Order Info: [id number] - CMPOrder Info: [id number] - LIPID Performed By: #### L 506.0250, L501.6710, L503.6030, L504.2610, L5000.0012, L503.6550, L100.0100, L100.9950, L101.9900, L500.4050 #### [facility] [address] [place], [place], [address] Urea nitrogen [Mass/Vol] 18 mg/dL Normal 4-19 [facility] Comment on above: Order Comment: Order Date: 09/19/24Order Info: [id number] - CMPOrder Info: [id number] - LIPID Performed By: #### L 506.0250, L501.6710, L503.6030, L504.2610, L5000.0012, L503.6550, L100.0100, L100.9950, L101.9900, L500.4050 #### [facility] [address] [place], [place], [address] Eosinophil percentageOrdered By: Mohan Tobias on 12-19-2024 Eosinophils/100 WBC (Bld) 0.7 % 0-5 [facility] Erythrocyte distribution wid th ratioOrdered By: Mohan Tobias on 12-19-2024 Erythrocyte distribution width (RBC) [Ratio] 13.4 % 11.6-14.6 [facility] Erythrocyte distribution wid th standard deviationOrdered By: Mohan Tobias on 12-19-2024 Erythrocyte distribution width (RBC) [Ratio] 46.6 fl High 35.1-43.9 [facility] Glomerular filtration rate ( GFR) estimation/1.73 sq m using serum, plasma, or whole bOrdered By: Mohan Tobias on 12-19-2024 GFR/1.73 sq M.predicted among non-blacks MDRD (S/P/Bld) [Vol rate/Area] 78 mL/min/{1.73_m2} >60 [facility] Comment on above: mL/min/1.73m2 CKD-EP I Creatinine Equation (2020) Hematocrit Auto (Bld) [Volum e fraction]Ordered By: Mohan Tobias on 12-19-2024 Hematocrit (Bld) [Volume fraction] 41.2 % 40-54 [facility] Hemoglobin A1con 12-19-2024 HbA1c (Bld) [Mass fraction] 6.3 % High <=5.6 [facility] Comment on above: Order Comment: Order Date: 09/19/24Order Info: [id number] - A1C Result Comment: Norm al < 5.7 % Prediabetic 5.7 - 6.4 % Diabetic >or= 6.5 % Please note range changes. Performed By: #### L 506.0250, L501.6710, L503.6030, L504.2610, L5000.0012, L503.6550, L100.0100, L100.9950, L101.9900, L500.4050 #### [facility] [place], [address] Hemoglobin A1c percentageOrd ered By: Mohan Tobias on 12-19-2024 HbA1c (Bld) [Mass fraction] 6.3 % High <5.7 [facility] Comment on above: Normal < 5.7 % Predi abetic 5.7 - 6.4 % Diabetic >or= 6.5 % Please note range changes. Hemoglobin measurementOrdere d By: Mohan Tobias on 12-19-2024 Hemoglobin (Bld) [Mass/Vol] 14.8 g/dL 13.0-16.5 [facility] Immature granulocytes/100 WB C Auto (Bld)Ordered By: Mohan Tobias on 12-19-2024 Immature granulocytes/100 WBC (Bld) 0.900 % 0.0-0.9 [facility] Comment on above: IG% - Immature Granu locytes (promyelocytes, myelocytes and metamyelocytes) > 1% indicates that a LEFT SHIFT is Present. Ketones Test strip Ql (U)Ord ered By: Mohan Tobias on 12-19-2024 Ketones Ql (U) 5 mg/dl High Negative [facility] LDL calc ser/plasOrdered By: Mohan Tobias on 12-19-2024 Cholesterol in LDL [Mass/Vol] 54 mg/dL [facility] Comment on above: Pruqgnimco=106-800 m g/dL & Higher Mlou=732 mg/dL or greater Laboratory - Chemistry and C hemistry - challengeOrdered By: Mohan Tobias on 12-19-2024 AST [Catalytic activity/Vol] 19 U/L <38 [facility] Lipid Profileon 12-19-2024 CHOL:HDL 3.45 Normal [facility] Comment on above: Order Comment: Order Date: 09/19/24Order Info: [id number] - CMPOrder Info: [id number] - LIPID Performed By: #### L 506.0250, L501.6710, L503.6030, L504.2610, L5000.0012, L503.6550, L100.0100, L100.9950, L101.9900, L500.4050 #### [facility] [address] [place], [place], [address] Cholesterol [Mass/Vol] 124 mg/dL Normal <=200 [facility] Comment on above: Order Comment: Order Date: 09/19/24Order Info: [id number] - CMPOrder Info: [id number] - LIPID Result Comment: Chol esterol level, Desirable <200 mg/dL Borderline high cholesterol 200-239 mg/dL High cholesterol >=240 mg/dL Recommendations of the NCEP Adult Treatment Panel for the following risk-cutoff thresholds for the [place] population. Performed By: #### L 506.0250, L501.6710, L503.6030, L504.2610, L5000.0012, L503.6550, L100.0100, L100.9950, L101.9900, L500.4050 #### [facility] [address] [place], [place], [address] Cholesterol in HDL [Mass/Vol] 36 mg/dL Low [facility] Comment on above: Order Comment: Order Date: 09/19/24Order Info: [id number] - CMPOrder Info: [id number] - LIPID Result Comment: Sofia onal Cholesterol Education Program (NCEP) guidelines: <40 mg/dL: Low HDL-cholesterol (major risk factor for CHD) >= 60 mg/dL: High HDL-cholesterol (negative risk factor for CHD) HDL-cholesterol is affected by a number of factors, e.g. smoking, exercise, hormones, sex and age. Performed By: #### L 506.0250, L501.6710, L503.6030, L504.2610, L5000.0012, L503.6550, L100.0100, L100.9950, L101.9900, L500.4050 #### [facility] [address] [facility] [place], [address] (059) Cholesterol in LDL [Mass/Vol] 54 mg/dL Normal [facility] Comment on above: Order Comment: Order Date: 09/19/24Order Info: [id number] - CMPOrder Info: [id number] - LIPID Result Comment: Bord ufjrap=167-577 mg/dL Higher Nohe=966 mg/dL or greater Performed By: #### L 506.0250, L501.6710, L503.6030, L504.2610, L5000.0012, L503.6550, L100.0100, L100.9950, L101.9900, L500.4050 #### [facility] [address] [place], [place], [id number] (032) Cholesterol in VLDL [Mass/Vol] 34 mg/dL Normal 5-40 [facility] Comment on above: Order Comment: Order Date: 09/19/24Order Info: [id number] - CMPOrder Info: [id number] - LIPID Performed By: #### L 506.0250, L501.6710, L503.6030, L504.2610, L5000.0012, L503.6550, L100.0100, L100.9950, L101.9900, L500.4050 #### [facility] [address] [place], [place], [address] Triglyceride [Mass/Vol] 172 mg/dL Normal [facility] Comment on above: Order Comment: Order Date: 09/19/24Order Info: [id number] - CMPOrder Info: [id number] - LIPID Result Comment: The drugs N-Acetylcysteine and Metamizole may falsely depress this assay. Normal range: <150 mg/dL Borderline High: 150-199 mg/dL High: 200-499 mg/dL Very High: >500 mg/dL Performed By: #### L 506.0250, L501.6710, L503.6030, L504.2610, L5000.0012, L503.6550, L100.0100, L100.9950, L101.9900, L500.4050 #### [facility] [address] [place], [place], [id number] MCV (mean corpuscular volume ) determinationOrdered By: Mohan Tobias on 12-19-2024 MCV (RBC) [Entitic vol] 94.7 fL High 80-94 [facility] Mean corpuscular hemoglobin (MCH) determinationOrdered By: Mohan Tobias on 12-19-2024 MCH (RBC) [Entitic mass] 34.0 pg High 27.0-32.0 [facility] Mean corpuscular hemoglobin concentration (MCHC) determinationOrdered By: Mohan Tobias on 12-19-2024 MCHC (RBC) [Mass/Vol] 35.9 g/dL 32-36 [facility] Mean platelet volume determi nationOrdered By: Mohan Tobias on 12-19-2024 Platelet mean volume (Bld) [Entitic vol] 10.2 fL 6.2-12.0 [facility] Microalb:Creat Ratio,Random URon 12-19-2024 Creatinine [Mass/Vol] 85.20 mg/dL Normal 39.00- 259. 00 [facility] Comment on above: Order Comment: Order Date: 09/19/24Order Info: [id number] - MIALB Performed By: #### L 400.0001, L502.0250 ####[facility] [address] [place], [address] MALB:CREAT UNABLE TO CALCULATE Normal <30 mg/g CRE [facility] Comment on above: Order Comment: Order Date: 09/19/24Order Info: [id number] - MIALB Performed By: #### L 400.0001, L502.0250 ####[facility] [address] [place], [address] MICROALBUMIN,UR < 12.0 Normal <20 mg/L [facility] Comment on above: Order Comment: Order Date: 09/19/24Order Info: [id number] - MIALB Performed By: #### L 400.0001, L502.0250 ####[facility] [address] [place], [address] Microalbumin/creat ratio urO rdered By: Mohan Tobias on 12-19-2024 Urine microalbumin/creatinine ratio measurement UNABLE TO CALCULATE mg/g CRE <30 [facility] Microscopic analysis of urin e for red blood cells (RBC)Ordered By: Mohan Tobias on 12-19-2024 Microscopic analysis of urine for red blood cells (RBC) 0 SEEN /hpf 0- [facility] Monocyte percentageOrdered B y: Mohan Tobias on 12-19-2024 Monocytes/100 WBC (Bld) 17.5 % High 0-10 [facility] Mucus LM Ql (Urine sed)Order ed By: Mohan Tobias on 12-19-2024 Mucus Ql (Urine sed) 0 SEEN /hpf [facility] Neutrophil percentageOrdered By: Mohan Tobias on 12-19-2024 Neutrophils/100 WBC (Bld) 27.2 % Low 47-70 [facility] Nitrite Test strip Ql (U)Ord ered By: Mohan Tobias on 12-19-2024 Nitrite Ql (U) Negative Negative [facility] Nucleated red blood cell per centageOrdered By: Mohan Tobias on 12-19-2024 Nucleated RBC/100 WBC (Bld) [Ratio] 0.5 % 0- [facility] Platelet countOrdered By: Sofie Tobias on 12-19-2024 Platelets (Bld) [#/Vol] 83 10*3/uL Low 150-450 [facility] Potassium measurement (mass/ volume)Ordered By: Mohan Tobias on 12-19-2024 Potassium (Unsp spec) [Mass/Vol] 3.7 mmol/L 3.3-5.1 [facility] Protein Test strip Ql (U)Ord ered By: Mohan Tobias on 12-19-2024 Protein Ql (U) Negative Negative [facility] RBC Auto (Bld) [#/Vol]Ordere d By: Mohan Tobias on 12-19-2024 RBC (Bld) [#/Vol] 4.35 10*6/uL Low 4.6-6.2 [facility] Random urine creatinine sterling urement (mass/volume)Ordered By: Mohan Tobias on 12-19-2024 Creatinine Unsp time (U) [Mass/Vol] 85.20 mg/dL 39.00-259. 00 [facility] Screening total cholesterol/ high density lipoprotein (HDL) cholesterol ratioOrdered By: Mohan Tobias on 12-19-2024 Cholesterol.total/Beth sterol in HDL [Mass ratio] 3.45 {ratio} [facility] Serum creatinine measurement (mass/volume)Ordered By: Mohan Tobias on 12-19-2024 Creatinine [Mass/Vol] 1.05 mg/dL 0.70-1.20 [facility] Serum globulin measurementOr dered By: Mohan Tobias on 12-19-2024 Globulin (S) [Mass/Vol] 3.0 g/dL 2.2-4.2 [facility] Serum glucose measurement (m ass/volume)Ordered By: Mohan Tobias on 12-19-2024 Glucose [Mass/Vol] 104 mg/dL High 70-99 [facility] Serum or plasma alanine rowley otransferase (ALT) measurementOrdered By: Mohan Tobias on 12-19-2024 ALT [Catalytic activity/Vol] 16 U/L <47 [facility] Serum or plasma albumin sterling urement (mass/volume)Ordered By: Mohan Tobias on 12-19-2024 Albumin [Mass/Vol] 4.0 g/dL 3.4-4.8 [facility] Serum or plasma albumin/glob ulin mass ratioOrdered By: Mohan Tobias on 12-19-2024 Albumin/Globulin [Mass ratio] 1.3 {ratio} 0.9-2.4 [facility] Serum or plasma alkaline jeannine sphatase measurementOrdered By: Mohan Tobias on 12-19-2024 ALP [Catalytic activity/Vol] 101 U/L 40-129 [facility] Serum or plasma calcium sterling urement (mass/volume)Ordered By: Mohan Tobias on 12-19-2024 Calcium [Mass/Vol] 9.4 mg/dL 7.6-11.0 [facility] Serum or plasma cholesterol in HDL measurement (mass/volume)Ordered By: Mohan Tobias on 12-19-2024 Cholesterol in HDL [Mass/Vol] 36 mg/dL Low >40 [facility] Comment on above: National Cholesterol Education Program (NCEP) guidelines:<40 mg/dL: Low HDL-cholesterol (major risk factor for CHD)>= 60 mg/dL: High HDL-cholesterol (negative risk factor for CHD)HDL-cholesterol is affected by a number of factors, e.g. smoking, exercise, hormones, sex and age. Serum or plasma cholesterol measurement (mass/volume)Ordered By: Mohan Tobias on 12-19-2024 Cholesterol [Mass/Vol] 124 mg/dL <201 [facility] Comment on above: Cholesterol level, D esirable <200 mg/dLBorderline high cholesterol 200-239 mg/dLHigh cholesterol >=240 mg/dLRecommendations of the NCEP Adult Treatment Panel for the following risk-cutoff thresholds for the [place] population. Serum or plasma urea nitroge n measurement (mass/volume)Ordered By: Mohan Tobias on 12-19-2024 Urea nitrogen [Mass/Vol] 18 mg/dL 4-19 [facility] Sodium levelOrdered By: Mohan Tobias on 12-19-2024 Sodium [Moles/Vol] 140 mmol/L 133-145 [facility] Squamous epithelial cells de tection in urine sediment by light microscopyOrdered By: Mohan Tobias on 12-19-2024 Epithelial cells.squamous LM Ql (Urine sed) 0 SEEN /hpf 0-5 [facility] Total proteinOrdered By: Jesus Tobias on 12-19-2024 Protein [Mass/Vol] 7.0 g/dL 5.9-8.4 [facility] Triglycerides measurementOrd ered By: Mohan Tobias on 12-19-2024 Triglyceride [Mass/Vol] 172 mg/dL <199 [facility] Comment on above: The drugs N-Acetylcy steine and Metamizole may falsely depress this assay. Normal range: <150 mg/dLBorderline High: 150-199 mg/dLHigh: 200-499 mg/dLVery High: >500 mg/dL Urinalysis, Completeon 12-19 BACTERIA 0 SEEN Normal None Seen [facility] Comment on above: Order Comment: Urine , Random Performed By: #### L 400.0001, L502.0250 ####[facility] [address] [place], [address] EPI,SQUAMOUS 0 SEEN Normal 0-5 [facility] Comment on above: Order Comment: Urine , Random Performed By: #### L 400.0001, L502.0250 ####[facility] [address] [place], [address] Mucus Ql (Urine sed) 0 SEEN Normal [facility] Comment on above: Order Comment: Urine , Random Performed By: #### L 400.0001, L502.0250 ####[facility] [address] [place], [address] RBC 0 SEEN Normal 0-[address] [place] [address] Comment on above: Order Comment: Urine , Random Performed By: #### L 400.0001, L502.0250 ####[facility] [address] [place], [address] WBC 0 SEEN Normal 0-5 [facility] Comment on above: Order Comment: Urine , Random Performed By: #### L 400.0001, L502.0250 ####[facility] [address] [place], [address] Urine albumin measurement wi th detection limit of 20 mg/L or less (mass/volume)Ordered By: Mohan Tobias on 12-19-2024 Albumin DL <= 20 mg/L (U) [Mass/Vol] < 12.0 mg/L <20 mg/L [facility] Urine clarityOrdered By: Jesus Tobias on 12-19-2024 Clarity (U) Clear Clear [facility] Urine color determinationOrd ered By: Mohan Tobias on 12-19-2024 Color (U) Yellow Yellow [facility] Urine glucose detectionOrder ed By: Mohan Tobias on 12-19-2024 Glucose Ql (U) Normal mg/dl Normal [facility] Urine leukocyte esterase det ection by dipstickOrdered By: Mohan Tobias on 12-19-2024 Leukocyte esterase Test strip Ql (U) Negative Negative [facility] Urine pHOrdered By: Mohan cheema on 12-19-2024 pH (U) 6.0 [pH] 5.0 - 8.0 [facility] Urine sediment bacteria coun t by microscopy (number/high power field)Ordered By: Mohan Tobias on 12-19-2024 Bacteria LM.HPF (Urine sed) [#/Area] 0 /[HPF] None Seen [facility] Urine specific gravity measu rementOrdered By: Mohan Tobias on 12-19-2024 Specific gravity (U) [Rel density] 1.010 1.002-1.03 0 [facility] Urine urobilinogen measureme ntOrdered By: Mohan Tobias on 12-19-2024 Urobilinogen Ql (U) Normal mg/dl Normal [facility] White blood cell (WBC) count Ordered By: Mohan Tobias on 12-19-2024 WBC (Bld) [#/Vol] 4.3 10*3/uL Low 4.4-11.0 [facility] White blood cell countOrdere d By: Mohan Tobias on 12-19-2024 White blood cell count 0 SEEN /hpf 0-5 [facility] H pylori Breath Teston 11-08 H.Pylori Breath Negative Normal Negative [facility] Comment on above: Result Comment: Perf ormed at: - [facility] [id number] [employer] Web Developer: Germán Rizo PhD, Phone: [phone] Performed By: #### L 3100.1960 ####[facility] [address] [place], [place], [id number] Helicobacter pylori breath t estOrdered By: Mohan Tobias on 11-06-2024 CO2 post dose urea Ql (Exhl gas) Negative Negative [facility] Comment on above: Performed at: [facility] [facility] [address] [id number] Director: Germán Rizo PhD, Phone: [phone] H pylori Breath Teston 09-13 H.Pylori Breath Positive Abnormal Negative [facility] Comment on above: Order Comment: Reaso n for Exam: THROMBOCYTOPENIA Result Comment: Perf ormed at: [facility] - [facility] [address] [id number] [employer] Web Developer: Germán Rizo PhD, Phone: [phone] Performed By: #### L 506.0250, L501.6710, L503.6030, L504.2610, L5000.0012, L503.6550, L100.0100, L100.9950, L101.9900, L500.4050 #### [facility] [address] [place], [place], [id number] Absolute lymphocyte countOrd ered By: Durga Davis on 09-11-2024 Lymphocytes Auto (Unsp spec) [#/Vol] 2.36 10*3/uL 0.83-4.51 [facility] Absolute neutrophil countOrd ered By: Durga Davsi on 09-11-2024 Neutrophils (Bld) [#/Vol] 1.7 10*3/uL Low 2.0-7.7 [facility] Anion gap in Serum or Plasma Ordered By: Durga Davis on 09-11-2024 Anion gap [Moles/Vol] 10 mmol/L 5-15 [facility] Automated lymphocyte count a s percentage of total leukocytesOrdered By: Durga Davis on 09-11-2024 Lymphocytes/100 WBC Auto (Unsp spec) 49.3 % High 19-41 [facility] BUN/creatinine ratioOrdered By: Durga Wallaceannita on 09-11-2024 Urea nitrogen/Creatinine [Mass ratio] 21.7 mg/mg High 10-20 [facility] Basophil percentageOrdered B y: Durga Wallaceannita on 09-11-2024 Basophils/100 WBC (Bld) 0.4 % 0-1 [facility] Bilirubin, totalOrdered By: Durga Wallaceannita on 09-11-2024 Bilirubin [Mass/Vol] 0.42 mg/dL 0.00-1.30 [facility] CBC W/Diff, Automatedon 08-29 PLT EST MOD DEC Normal ADEQ [facility] Comment on above: Performed By: #### L 506.0250, L501.6710, L503.6030, L504.2610, L5000.0012, L503.6550, L100.0100, L100.9950, L101.9900, L500.4050 #### [facility] [address] [place], [place], [id number] Carbon dioxide, total [Moles /volume] in Central venous bloodOrdered By: Durga Wallaceannita on 09-11-2024 CO2 [Moles/Vol] 24.4 mmol/L 21.0-32.0 [facility] Chloride assayOrdered By: Sofie Davis on 09-11-2024 Chloride [Moles/Vol] 103 mmol/L 98-108 [facility] Comprehensive Metabolic Prof ilon 09-11-2024 Albumin [Mass/Vol] 4.0 g/dL Normal 3.4-4.8 [facility] Comment on above: Performed By: #### L 506.0250, L501.6710, L503.6030, L504.2610, L5000.0012, L503.6550, L100.0100, L100.9950, L101.9900, L500.4050 #### [facility] [address] [place], [place], [id number] Albumin/Globulin [Mass ratio] 1.4 {ratio} Normal 0.9-2.4 [facility] Comment on above: Performed By: #### L 506.0250, L501.6710, L503.6030, L504.2610, L5000.0012, L503.6550, L100.0100, L100.9950, L101.9900, L500.4050 #### [facility] [address] [place], [place], [phone] (757) ALK PHOS 95 U/L Normal 40-129 [facility] Comment on above: Performed By: #### L 506.0250, L501.6710, L503.6030, L504.2610, L5000.0012, L503.6550, L100.0100, L100.9950, L101.9900, L500.4050 #### [facility] [address] [place], [place], [id number] ALT [Catalytic activity/Vol] 12 U/L Normal <=46 [facility] Comment on above: Performed By: #### L 506.0250, L501.6710, L503.6030, L504.2610, L5000.0012, L503.6550, L100.0100, L100.9950, L101.9900, L500.4050 #### [facility] [address] [place], [place], [id number] AST [Catalytic activity/Vol] 16 U/L Normal <=37 [facility] Comment on above: Performed By: #### L 506.0250, L501.6710, L503.6030, L504.2610, L5000.0012, L503.6550, L100.0100, L100.9950, L101.9900, L500.4050 #### [facility] [address] [place], [address] Bilirubin [Mass/Vol] 0.42 mg/dL Normal 0.00-1.30 [facility] Comment on above: Performed By: #### L 506.0250, L501.6710, L503.6030, L504.2610, L5000.0012, L503.6550, L100.0100, L100.9950, L101.9900, L500.4050 #### [facility] [address] [place], [address] BUN/CRE 21.7 RATIO High 10-20 [facility] Comment on above: Performed By: #### L 506.0250, L501.6710, L503.6030, L504.2610, L5000.0012, L503.6550, L100.0100, L100.9950, L101.9900, L500.4050 #### [facility] [address] [place], [address] Calcium [Mass/Vol] 9.2 mg/dL Normal 7.6-11.0 [facility] Comment on above: Performed By: #### L 506.0250, L501.6710, L503.6030, L504.2610, L5000.0012, L503.6550, L100.0100, L100.9950, L101.9900, L500.4050 #### [facility] [address] [place], [address] Chloride [Moles/Vol] 103 mmol/L Normal 98-108 [facility] Comment on above: Performed By: #### L 506.0250, L501.6710, L503.6030, L504.2610, L5000.0012, L503.6550, L100.0100, L100.9950, L101.9900, L500.4050 #### [facility] [address] [place], [address] CO2 [Moles/Vol] 24.4 mmol/L Normal 21.0-32.0 [facility] Comment on above: Performed By: #### L 506.0250, L501.6710, L503.6030, L504.2610, L5000.0012, L503.6550, L100.0100, L100.9950, L101.9900, L500.4050 #### [facility] [address] [place], [address] Creatinine [Mass/Vol] 1.08 mg/dL Normal 0.70-1.20 [facility] Comment on above: Performed By: #### L 506.0250, L501.6710, L503.6030, L504.2610, L5000.0012, L503.6550, L100.0100, L100.9950, L101.9900, L500.4050 #### [facility] [address] [place], [address] (813) ECRCL 62.55 ml/min Normal 50-250 [facility] Comment on above: Performed By: #### L 506.0250, L501.6710, L503.6030, L504.2610, L5000.0012, L503.6550, L100.0100, L100.9950, L101.9900, L500.4050 #### [facility] [address] [place], [place], [id number] GAP 10 Normal 5-15 [facility] Comment on above: Performed By: #### L 506.0250, L501.6710, L503.6030, L504.2610, L5000.0012, L503.6550, L100.0100, L100.9950, L101.9900, L500.4050 #### [facility] [address] [place], [address] GFR/1.73 sq M.predicted among non-blacks MDRD (S/P/Bld) [Vol rate/Area] 75 mL/min/{1.73_m2} Normal >60 [facility] Comment on above: Result Comment: mL/m in/1.73m2 CKD-EPI Creatinine Equation (2020) Performed By: #### L 506.0250, L501.6710, L503.6030, L504.2610, L5000.0012, L503.6550, L100.0100, L100.9950, L101.9900, L500.4050 #### [facility] [address] [place], [address] Globulin (S) [Mass/Vol] 2.9 g/dL Normal 2.2-4.2 [facility] Comment on above: Performed By: #### L 506.0250, L501.6710, L503.6030, L504.2610, L5000.0012, L503.6550, L100.0100, L100.9950, L101.9900, L500.4050 #### [facility] [address] [place], [address] Glucose [Mass/Vol] 87 mg/dL Normal 70-99 [facility] Comment on above: Performed By: #### L 506.0250, L501.6710, L503.6030, L504.2610, L5000.0012, L503.6550, L100.0100, L100.9950, L101.9900, L500.4050 #### [facility] [address] [place], [address] Potassium [Moles/Vol] 3.7 mmol/L Normal 3.3-5.1 [facility] Comment on above: Performed By: #### L 506.0250, L501.6710, L503.6030, L504.2610, L5000.0012, L503.6550, L100.0100, L100.9950, L101.9900, L500.4050 #### [facility] [address] [place], [address] Sodium [Moles/Vol] 138 mmol/L Normal 133-145 [facility] Comment on above: Performed By: #### L 506.0250, L501.6710, L503.6030, L504.2610, L5000.0012, L503.6550, L100.0100, L100.9950, L101.9900, L500.4050 #### [facility] [address] [facility] [facility] [place], [address] T PROT 6.9 g/dL Normal 5.9-8.4 [facility] Comment on above: Performed By: #### L 506.0250, L501.6710, L503.6030, L504.2610, L5000.0012, L503.6550, L100.0100, L100.9950, L101.9900, L500.4050 #### [facility] [address] [facility] [place], [place], [phone] Urea nitrogen [Mass/Vol] 23 mg/dL High 4-19 [facility] Comment on above: Performed By: #### L 506.0250, L501.6710, L503.6030, L504.2610, L5000.0012, L503.6550, L100.0100, L100.9950, L101.9900, L500.4050 #### [facility] [address] [facility] [place], [place], [address] Eosinophil percentageOrdered By: Durga Davis on 09-11-2024 Eosinophils/100 WBC (Bld) 0.8 % 0-5 [facility] Erythrocyte distribution wid th (RBC) [Ratio]Ordered By: Durga Davis on 09-11-2024 Erythrocyte distribution width (RBC) [Entitic vol] 45.1 fL High 35.1-43.9 [facility] Erythrocyte distribution wid th ratioOrdered By: Durga Davis on 09-11-2024 Erythrocyte distribution width (RBC) [Ratio] 13.2 % 11.6-14.6 [facility] Erythrocyte distribution wid th standard deviationOrdered By: Durga Davis on 09-11-2024 Erythrocyte distribution width (RBC) [Ratio] 45.1 fl High 35.1-43.9 [facility] Estimation of creatinine redd aranceOrdered By: Durga Davis on 09-11-2024 Estimated Creatinine Clearance Calc 62.55 ml/min 50-250 [facility] GFR/1.73 sq M.predicted ynes g non-blacks MDRD (S/P/Bld) [Vol rate/Area]Ordered By: Durga Davis on 09-11-2024 Estimated GFR (MDRD) Non-Af Amer 75 >60 [facility] Comment on above: mL/min/1.73m2 CKD-EP I Creatinine Equation (2020) Glomerular filtration rate ( GFR) estimation/1.73 sq m using serum, plasma, or whole bOrdered By: Durga Davis on 09-11-2024 GFR/1.73 sq M.predicted among non-blacks MDRD (S/P/Bld) [Vol rate/Area] 75 mL/min/{1.73_m2} >60 [facility] Comment on above: mL/min/1.73m2 CKD-EP I Creatinine Equation (2020) Helicobacter pylori breath t estOrdered By: Durga Davis on 09-11-2024 CO2 post dose urea Ql (Exhl gas) Positive High Negative [facility] Comment on above: Performed at: [address] Director: Germán Rizo PhD, Phone: [phone] Hematocrit Auto (Bld) [Volum e fraction]Ordered By: Durga Davis on 09-11-2024 Hematocrit (Bld) [Volume fraction] 39.5 % Low 40-54 [facility] Hemoglobin measurementOrdere d By: Durga Davis on 09-11-2024 Hemoglobin (Bld) [Mass/Vol] 14.2 g/dL 13.0-16.5 [facility] Immature granulocytes/100 WB C Auto (Bld)Ordered By: Durga Davis on 09-11-2024 Immature granulocytes/100 WBC (Bld) 1.000 % High 0.0-0.9 [facility] Comment on above: IG% - Immature Granu locytes (promyelocytes, myelocytes and metamyelocytes) > 1% indicates that a LEFT SHIFT is Present. LDHon 09-11-2024 LDH 171 U/L Normal 87-241 [facility] Comment on above: Order Comment: 1 Performed By: #### L 506.0250, L501.6710, L503.6030, L504.2610, L5000.0012, L503.6550, L100.0100, L100.9950, L101.9900, L500.4050 #### [facility] [address] [place], [address] Laboratory - Chemistry and C hemistry - challengeOrdered By: Durga Davis on 09-11-2024 AST [Catalytic activity/Vol] 16 U/L <38 [facility] Lactate dehydrogenase (LDH) measurementOrdered By: Durga Davis on 09-11-2024 LDH [Catalytic activity/Vol] 171 U/L 87-241 [facility] Lymphocytes Auto (Unsp spec) [#/Vol]Ordered By: Durga Davis on 09-11-2024 Lymphocytes (Bld) [#/Vol] 2.36 10*3/uL 0.83-4.51 [facility] Lymphocytes/100 WBC Auto (Un sp spec)Ordered By: Durga Davis on 09-11-2024 Lymphocytes/100 WBC (Bld) 49.3 % High 19-41 [facility] MCV (mean corpuscular volume ) determinationOrdered By: Durga Davis on 09-11-2024 MCV (RBC) [Entitic vol] 94.0 fL 80-94 [facility] Mean corpuscular hemoglobin (MCH) determinationOrdered By: Durga Davis on 09-11-2024 MCH (RBC) [Entitic mass] 33.8 pg High 27.0-32.0 [facility] Mean corpuscular hemoglobin concentration (MCHC) determinationOrdered By: Durga Davis on 09-11-2024 MCHC (RBC) [Mass/Vol] 35.9 g/dL 32-36 [facility] Mean platelet volume determi nationOrdered By: Durga Davis on 09-11-2024 Platelet mean volume (Bld) [Entitic vol] 9.1 fL 6.2-12.0 [facility] Monocyte percentageOrdered B y: Durga Davis on 04-14-2025 Monocytes/100 WBC (Bld) 12.1 % High 0-10 [facility] Neutrophil percentageOrdered By: Durga Davis on 09-11-2024 Neutrophils/100 WBC (Bld) 36.4 % Low 47-70 [facility] Nucleated red blood cell per centageOrdered By: Durga Davis on 09-11-2024 Nucleated RBC/100 WBC (Bld) [Ratio] 0 % 0-5 [facility] Oncology Visit Reporton 08-29 Oncology Visit Report [facility] [address] [place] [address] OFFICE VISIT Date of Service: 09/11/24 1336 MR#: [id number] Acct: [id number] Name: CHAMP WU Rep #: [id number] : 1955 From: Durga Davis MD Age/Sex: 69/M [place] [facility] [place]: Signed HPI Subjective Date of Service 09/11/24 Chief Complaint F/u for thrombocytopenia. History of Present Illness 69y.o.man was found to thrombocytopenia over 2 years so referred for further evaluation. He denied bleeding or bruises easily. Blood work on 10/16/2020 showed Platelets of 139. It is fluctuating to less than 100K. He is on observation and comes for follow up. Feels well. [facility] History Loss of hearing Wears glasses Diabetes Anemia Back pain Migraine headache Seizures Gastric reflux Non-smoker History of edema Heart murmur History of echocardiogram Hiatal hernia Pancreas cyst Kidney tumor Thrombocytopenia Hypokalemia Epigastric pain HLD (hyperlipidemia) HTN (hypertension) Chest pressure Surgical History Hx of partial nephrectomy Hx of colonoscopy History of esophagogastroduodenoscopy (EGD) H/O vasectomy Family History Sister Diabetes Hypertension CAD (coronary artery disease) Father Hypertension Kidney disease Mother Hypertension Brother Seizures Social History Smoking Status: Never smoker second hand exposure: No alcohol intake: never substance use type: does not use anand/amish: [employer] Intake Vital Signs 03/20/24 12:59 09/11/24 13:36 Height 5 ft 3 in 5 ft 3 in Weight: 77.224 kg BMI 30.1 BP 152/83 H Blood Pressure Location Lt brachial Position Sitting Respiration 18 Pulse 57 L Pulse Source Monitor Temp 98.5 F Temperature Source Temporal Artery Pulse Oximetry (%) 96 Oxygen Delivery Method room air Intake Is patient in pain?: No Allergies Beta-Blockers (Beta-Adrenergic Bloc Adverse Reaction (Intermediate, Verified 09/11/24 13:38) UNK Medications ???Medication ???Instructions ???Recorded ???Confirmed ???Type amlodipine 5 mg tablet 10 mg PO DAILY blood pressure 04/3009/11/24 History multivitamin with folic acid 400 1 tab PO DAILY supplement 08/05/16 09/11/24 History mcg tablet magnesium hydroxide 400 mg/5 mL 5 ml PO DAILY PRN PRN stomach upse t 10/16/20 09/11/24 History oral suspension hydrochlorothiazide 12.5 mg tablet 12.5 mg PO DAILY 11/06/20 History melatonin 3 mg capsule 3 mg PO QHS 09/14/22 09/11/24 Hist ory triamcinolone acetonide 55 mcg 1 spray intranasal DAILY PRN PRN 0 09/14/22 09/11/24 History nasal spray aerosol (Nasacort) allergy symptoms lisinopril 20 mg tablet 20 mg PO BID blood pressure 09/11/24 History magnesium glycinate 100 mg (as 200 mg PO DAILY 09/14/23 09/11/24 History glycinate) tablet omeprazole 40 mg capsule,delayed 40 mg PO DAILY #30 caps 01/21/24 0 09/11/24 Rx release potassium chloride 20 mEq 20 meq PO DAILY #30 tabs 06/27/24 09/11/24 Rx tablet,extended release Have you fallen in the past year?: No Central Venous Access Central Venous Access: No Exam Physical Exam Const alert, oriented x3 and no apparent distress General Appearance: cooperative and comfortable HEENT normocephalic, external ears normal and external nose normal Neck supple Lymph Lymphatic: no lymphadenopathy noted Chest inspection of chest normal Resp normal respiratory effort and clear to auscultation bilaterally Cardio regular rate, regular rhythm, S1 normal heart sound, S2 normal heart sound and no murmurs no CVA tenderness Back/Spine thoracic and lumbar spine normal to inspection Extremity normal to inspection and no clubbing, cyanosis or edema Skin no rashes or lesions noted Neuro oriented x3, CN's II-XII intact bilaterally, moves all extremities and no focal motor deficits Psych mental status grossly normal Coding Level of Care Code Off vis,est,level 3 Exam Problem Focused Diagnoses Thrombocytopenia D69.6 Neutropenia, unspecified type D70.9 Neutropenia type: unspecified Assessment and Plan Assessment and Plan (1) Thrombocytopenia: Status: Chronic Comment: On and off for a few years, no bleeding. PLT count is 93K today. No need for intervention at this time. Plan: To monitor Platelet counts. (2) Neutropenia: Status: Chronic Qualifiers: Neutropenia type: unspecified Qualified Code(s): D70.9 - Neutropenia, unspecified Comment: Discussed differential diagnosis including drugs/bone marrow disorders again. No (more content not included)... Normal [facility] Platelet countOrdered By: Sofie Davis on 09-11-2024 Platelets (Bld) [#/Vol] 93 10*3/uL Low 150-450 [facility] Platelet estimateOrdered By: Durga Davis on 09-11-2024 Platelets LM Ql (Bld) MOD DEC [facility] Platelets LM Ql (Bld)Ordered By: Durga Davis on 09-11-2024 Platelet Estimate MOD APR [facility] Potassium (Unsp spec) [Mass/ Vol]Ordered By: Durga Davis on 09-11-2024 Potassium [Moles/Vol] 3.7 mmol/L 3.3-5.1 [facility] Potassium measurement (mass/ volume)Ordered By: Durga Davis on 09-11-2024 Potassium (Unsp spec) [Mass/Vol] 3.7 mmol/L 3.3-5.1 [facility] RBC Auto (Bld) [#/Vol]Ordere d By: Durga Davis on 09-11-2024 RBC (Bld) [#/Vol] 4.20 10*6/uL Low 4.6-6.2 [facility] Serum creatinine measurement (mass/volume)Ordered By: Durga Davis on 09-11-2024 Creatinine [Mass/Vol] 1.08 mg/dL 0.70-1.20 [facility] Serum globulin measurementOr dered By: Durga Davis on 09-11-2024 Globulin (S) [Mass/Vol] 2.9 g/dL 2.2-4.2 [facility] Serum glucose measurement (m ass/volume)Ordered By: Durga Davis on 09-11-2024 Glucose [Mass/Vol] 87 mg/dL 70-99 [facility] Serum or plasma alanine rowley otransferase (ALT) measurementOrdered By: Durga Davis on 09-11-2024 ALT [Catalytic activity/Vol] 12 U/L <47 [facility] Serum or plasma albumin sterling urement (mass/volume)Ordered By: Durga Davis on 09-11-2024 Albumin [Mass/Vol] 4.0 g/dL 3.4-4.8 [facility] Serum or plasma albumin/glob ulin mass ratioOrdered By: Durga Davis on 09-11-2024 Albumin/Globulin [Mass ratio] 1.4 {ratio} 0.9-2.4 [facility] Serum or plasma alkaline jeannine sphatase measurementOrdered By: Durga Davis on 09-11-2024 ALP [Catalytic activity/Vol] 95 U/L 40-129 [facility] Serum or plasma calcium sterling urement (mass/volume)Ordered By: Durga Davis on 09-11-2024 Calcium [Mass/Vol] 9.2 mg/dL 7.6-11.0 [facility] Serum or plasma urea nitroge n measurement (mass/volume)Ordered By: Durga Davis on 09-11-2024 Urea nitrogen [Mass/Vol] 23 mg/dL High 4-19 [facility] Sodium levelOrdered By: Mickey Davis on 09-11-2024 Sodium [Moles/Vol] 138 mmol/L 133-145 [facility] Total proteinOrdered By: Jared Davis on 09-11-2024 Protein [Mass/Vol] 6.9 g/dL 5.9-8.4 [facility] Vitamin B12on 09-11-2024 Cobalamin (Vitamin B12) [Mass/Vol] 936 pg/mL High 180-914 [facility] Comment on above: Performed By: #### L 506.0250, L501.6710, L503.6030, L504.2610, L5000.0012, L503.6550, L100.0100, L100.9950, L101.9900, L500.4050 #### [facility] [place], [address] Vitamin B12 ser/plasOrdered By: Durga Davis on 09-11-2024 Cobalamin (Vitamin B12) [Mass/Vol] 936 pg/mL High 180-914 [facility] White blood cell (WBC) count Ordered By: Durga Davis on 09-11-2024 WBC (Bld) [#/Vol] 4.8 10*3/uL 4.4-11.0 [facility] Absolute lymphocyte countOrd ered By: Mohan Tobias on 09-07-2024 Lymphocytes Auto (Unsp spec) [#/Vol] 2.41 10*3/uL 0.83-4.51 [facility] Absolute neutrophil countOrd ered By: Mohan Tobias on 09-07-2024 Neutrophils (Bld) [#/Vol] 1.4 10*3/uL Low 2.0-7.7 [facility] Anion gap in Serum or Plasma Ordered By: Mohan Tobias on 09-07-2024 Anion gap [Moles/Vol] 11 mmol/L 5-15 [facility] Automated lymphocyte count a s percentage of total leukocytesOrdered By: Mohan Tobias on 09-07-2024 Lymphocytes/100 WBC Auto (Unsp spec) 47.5 % High 19-41 [facility] BUN/creatinine ratioOrdered By: Mohan Tobias on 09-07-2024 Urea nitrogen/Creatinine [Mass ratio] 18.1 mg/mg 10-20 [facility] Basophil percentageOrdered B y: Mohan Tobias on 09-07-2024 Basophils/100 WBC (Bld) 0.4 % 0-1 [facility] Bilirubin Test strip Ql (U)O rdered By: Mohan Tobias on 09-07-2024 Bilirubin Ql (U) Negative Negative [facility] Bilirubin, totalOrdered By: Mohan Tobias on 09-07-2024 Bilirubin [Mass/Vol] 0.68 mg/dL 0.00-1.30 [facility] CBC W/Diff, Automatedon 08-29 Absolute Lymph 2.41 X10 3/uL Normal 0.83-4.51 [facility] Comment on above: Performed By: #### L 506.0250, L501.6710, L503.6030, L504.2610, L5000.0012, L503.6550, L100.0100, L100.9950, L101.9900, L500.4050 #### [facility] [address] [place], [place], [phone] ([phone]) Absolute Neut 1.4 X10 3/uL Low 2.0-7.7 [facility] Comment on above: Performed By: #### L 506.0250, L501.6710, L503.6030, L504.2610, L5000.0012, L503.6550, L100.0100, L100.9950, L101.9900, L500.4050 #### [facility] [address] [place], [place], [phone] (324) Basophils/100 WBC (Bld) 0.4 % Normal 0-1 [facility] Comment on above: Performed By: #### L 506.0250, L501.6710, L503.6030, L504.2610, L5000.0012, L503.6550, L100.0100, L100.9950, L101.9900, L500.4050 #### [facility] [address] [place], [place], [phone] (426) Eosinophils/100 WBC (Bld) 1.0 % Normal 0-5 [facility] Comment on above: Performed By: #### L 506.0250, L501.6710, L503.6030, L504.2610, L5000.0012, L503.6550, L100.0100, L100.9950, L101.9900, L500.4050 #### [facility] [address] [place], [address] Erythrocyte distribution width (RBC) [Ratio] 13.0 % Normal 11.6-14.6 [facility] Comment on above: Performed By: #### L 506.0250, L501.6710, L503.6030, L504.2610, L5000.0012, L503.6550, L100.0100, L100.9950, L101.9900, L500.4050 #### [facility] [address] [place], [place], [phone] (511) Hematocrit (Bld) [Volume fraction] 39.3 % Low 40-54 [facility] Comment on above: Performed By: #### L 506.0250, L501.6710, L503.6030, L504.2610, L5000.0012, L503.6550, L100.0100, L100.9950, L101.9900, L500.4050 #### [facility] [address] [place], [place], [phone] Hemoglobin (Bld) [Mass/Vol] 14.5 g/dL Normal 13.0-16.5 [facility] Comment on above: Performed By: #### L 506.0250, L501.6710, L503.6030, L504.2610, L5000.0012, L503.6550, L100.0100, L100.9950, L101.9900, L500.4050 #### [facility] [address] [facility] [place], [place], [id number] IG% 0.800 Normal 0.0-0.9 [facility] Comment on above: Result Comment: IG% - Immature Granulocytes (promyelocytes, myelocytes and metamyelocytes) > 1% indicates that a LEFT SHIFT is Present. Performed By: #### L 506.0250, L501.6710, L503.6030, L504.2610, L5000.0012, L503.6550, L100.0100, L100.9950, L101.9900, L500.4050 #### [facility] [address] [place], [address] Lymphocytes/100 WBC (Bld) 47.5 % High 19-41 [facility] Comment on above: Performed By: #### L 506.0250, L501.6710, L503.6030, L504.2610, L5000.0012, L503.6550, L100.0100, L100.9950, L101.9900, L500.4050 #### [facility] [address] [place], [address] MCH (RBC) [Entitic mass] 34.7 pg High 27.0-32.0 [facility] Comment on above: Performed By: #### L 506.0250, L501.6710, L503.6030, L504.2610, L5000.0012, L503.6550, L100.0100, L100.9950, L101.9900, L500.4050 #### [facility] [address] [place], [address] MCHC (RBC) [Mass/Vol] 36.9 g/dL High 32-36 [facility] Comment on above: Performed By: #### L 506.0250, L501.6710, L503.6030, L504.2610, L5000.0012, L503.6550, L100.0100, L100.9950, L101.9900, L500.4050 #### [facility] [address] [place], [address] MCV (RBC) [Entitic vol] 94.0 fL Normal 80-94 [facility] Comment on above: Performed By: #### L 506.0250, L501.6710, L503.6030, L504.2610, L5000.0012, L503.6550, L100.0100, L100.9950, L101.9900, L500.4050 #### [facility] [address] [place], [address] Monocytes/100 WBC (Bld) 22.3 % High 0-10 [facility] Comment on above: Performed By: #### L 506.0250, L501.6710, L503.6030, L504.2610, L5000.0012, L503.6550, L100.0100, L100.9950, L101.9900, L500.4050 #### [facility] [address] [place], [address] ( Neutrophils/100 WBC (Bld) 28.0 % Low 47-70 [facility] Comment on above: Performed By: #### L 506.0250, L501.6710, L503.6030, L504.2610, L5000.0012, L503.6550, L100.0100, L100.9950, L101.9900, L500.4050 #### [facility] [address] [place], [address] (793) Nucleated RBC (Bld) [#/Vol] 0 10*3/uL Normal 0-5 [facility] Comment on above: Performed By: #### L 506.0250, L501.6710, L503.6030, L504.2610, L5000.0012, L503.6550, L100.0100, L100.9950, L101.9900, L500.4050 #### [facility] [address] [place], [address] ( Platelet mean volume (Bld) [Entitic vol] 9.6 fL Normal 6.2-12.0 [facility] Comment on above: Performed By: #### L 506.0250, L501.6710, L503.6030, L504.2610, L5000.0012, L503.6550, L100.0100, L100.9950, L101.9900, L500.4050 #### [facility] [address] [place], [address] Platelets (Bld) [#/Vol] 104 10*3/uL Low 150-450 [facility] Comment on above: Performed By: #### L 506.0250, L501.6710, L503.6030, L504.2610, L5000.0012, L503.6550, L100.0100, L100.9950, L101.9900, L500.4050 #### [facility] [address] [place], [address] RBC (Bld) [#/Vol] 4.18 10*6/uL Low 4.6-6.2 [facility] Comment on above: Performed By: #### L 506.0250, L501.6710, L503.6030, L504.2610, L5000.0012, L503.6550, L100.0100, L100.9950, L101.9900, L500.4050 #### [facility] [address] [place], [address] RDW SD 44.7 fl High 35.1-43.9 [facility] Comment on above: Performed By: #### L 506.0250, L501.6710, L503.6030, L504.2610, L5000.0012, L503.6550, L100.0100, L100.9950, L101.9900, L500.4050 #### [facility] [address] [place], [address] WBC (Bld) [#/Vol] 5.1 10*3/uL Normal 4.4-11.0 [facility] Comment on above: Performed By: #### L 506.0250, L501.6710, L503.6030, L504.2610, L5000.0012, L503.6550, L100.0100, L100.9950, L101.9900, L500.4050 #### [facility] [address] [place], [place], [id number] Calculated very low density lipoprotein (VLDL) cholesterol measurementOrdered By: Mohan Tobias on 09-07-2024 Calculated very low density lipoprotein (VLDL) cholesterol measurement 46 mg/dL High 5-40 [facility] VLDL Cholesterol 46 mg/dL High 5-40 [facility] Carbon dioxide, total [Moles /volume] in Central venous bloodOrdered By: Mohan Tobias on 09-07-2024 CO2 [Moles/Vol] 26.2 mmol/L 21.0-32.0 [facility] Chloride assayOrdered By: Sofie Tobias on 09-07-2024 Chloride [Moles/Vol] 102 mmol/L 98-108 [facility] Comprehensive Metabolic Prof ilon 09-07-2024 Albumin [Mass/Vol] 4.0 g/dL Normal 3.4-4.8 [facility] Comment on above: Performed By: #### L 506.0250, L501.6710, L503.6030, L504.2610, L5000.0012, L503.6550, L100.0100, L100.9950, L101.9900, L500.4050 #### [facility] [address] [place], [place], [phone] Albumin/Globulin [Mass ratio] 1.4 {ratio} Normal 0.9-2.4 [facility] Comment on above: Performed By: #### L 506.0250, L501.6710, L503.6030, L504.2610, L5000.0012, L503.6550, L100.0100, L100.9950, L101.9900, L500.4050 #### [facility] [address] [place], [address] ALK PHOS 97 U/L Normal 40-129 [facility] Comment on above: Performed By: #### L 506.0250, L501.6710, L503.6030, L504.2610, L5000.0012, L503.6550, L100.0100, L100.9950, L101.9900, L500.4050 #### [facility] [address] [place], [place], [phone] (196) ALT [Catalytic activity/Vol] 14 U/L Normal <=46 [facility] Comment on above: Performed By: #### L 506.0250, L501.6710, L503.6030, L504.2610, L5000.0012, L503.6550, L100.0100, L100.9950, L101.9900, L500.4050 #### [facility] [address] [place], [place], [phone] (858) AST [Catalytic activity/Vol] 17 U/L Normal <=37 [facility] Comment on above: Performed By: #### L 506.0250, L501.6710, L503.6030, L504.2610, L5000.0012, L503.6550, L100.0100, L100.9950, L101.9900, L500.4050 #### [facility] [address] [place], [place], [phone] Bilirubin [Mass/Vol] 0.68 mg/dL Normal 0.00-1.30 [facility] Comment on above: Performed By: #### L 506.0250, L501.6710, L503.6030, L504.2610, L5000.0012, L503.6550, L100.0100, L100.9950, L101.9900, L500.4050 #### [facility] [address] [place], [place], [phone] (351) BUN/CRE 18.1 RATIO Normal 10-20 [facility] Comment on above: Performed By: #### L 506.0250, L501.6710, L503.6030, L504.2610, L5000.0012, L503.6550, L100.0100, L100.9950, L101.9900, L500.4050 #### [facility] [address] [place], [address] Calcium [Mass/Vol] 9.4 mg/dL Normal 7.6-11.0 [facility] Comment on above: Performed By: #### L 506.0250, L501.6710, L503.6030, L504.2610, L5000.0012, L503.6550, L100.0100, L100.9950, L101.9900, L500.4050 #### [facility] [address] [place], [address] Chloride [Moles/Vol] 102 mmol/L Normal 98-108 [facility] Comment on above: Performed By: #### L 506.0250, L501.6710, L503.6030, L504.2610, L5000.0012, L503.6550, L100.0100, L100.9950, L101.9900, L500.4050 #### [facility] [address] [place], [address] CO2 [Moles/Vol] 26.2 mmol/L Normal 21.0-32.0 [facility] Comment on above: Performed By: #### L 506.0250, L501.6710, L503.6030, L504.2610, L5000.0012, L503.6550, L100.0100, L100.9950, L101.9900, L500.4050 #### [facility] [address] [place], [address] Creatinine [Mass/Vol] 1.09 mg/dL Normal 0.70-1.20 [facility] Comment on above: Performed By: #### L 506.0250, L501.6710, L503.6030, L504.2610, L5000.0012, L503.6550, L100.0100, L100.9950, L101.9900, L500.4050 #### [facility] [address] [place], [place], [phone] (043) GAP 11 Normal 5-15 [facility] Comment on above: Performed By: #### L 506.0250, L501.6710, L503.6030, L504.2610, L5000.0012, L503.6550, L100.0100, L100.9950, L101.9900, L500.4050 #### [facility] [address] [place], [place], [phone] (003) GFR/1.73 sq M.predicted among non-blacks MDRD (S/P/Bld) [Vol rate/Area] 74 mL/min/{1.73_m2} Normal >60 [facility] Comment on above: Result Comment: mL/m in/1.73m2 CKD-EPI Creatinine Equation (2020) Performed By: #### L 506.0250, L501.6710, L503.6030, L504.2610, L5000.0012, L503.6550, L100.0100, L100.9950, L101.9900, L500.4050 #### [facility] [address] [place], [place], [phone] Globulin (S) [Mass/Vol] 2.9 g/dL Normal 2.2-4.2 [facility] Comment on above: Performed By: #### L 506.0250, L501.6710, L503.6030, L504.2610, L5000.0012, L503.6550, L100.0100, L100.9950, L101.9900, L500.4050 #### [facility] [address] [place], [place], [phone] Glucose [Mass/Vol] 113 mg/dL High 70-99 [facility] Comment on above: Performed By: #### L 506.0250, L501.6710, L503.6030, L504.2610, L5000.0012, L503.6550, L100.0100, L100.9950, L101.9900, L500.4050 #### [facility] [address] [place], [address] Potassium [Moles/Vol] 3.6 mmol/L Normal 3.3-5.1 [facility] Comment on above: Performed By: #### L 506.0250, L501.6710, L503.6030, L504.2610, L5000.0012, L503.6550, L100.0100, L100.9950, L101.9900, L500.4050 #### [facility] [address] [place], [place], [phone] (365) Sodium [Moles/Vol] 140 mmol/L Normal 133-145 [facility] Comment on above: Performed By: #### L 506.0250, L501.6710, L503.6030, L504.2610, L5000.0012, L503.6550, L100.0100, L100.9950, L101.9900, L500.4050 #### [facility] [address] [place], [place], [phone] (711) T PROT 6.9 g/dL Normal 5.9-8.4 [facility] Comment on above: Performed By: #### L 506.0250, L501.6710, L503.6030, L504.2610, L5000.0012, L503.6550, L100.0100, L100.9950, L101.9900, L500.4050 #### [facility] [address] [place], [address] Urea nitrogen [Mass/Vol] 20 mg/dL High 4-19 [facility] Comment on above: Performed By: #### L 506.0250, L501.6710, L503.6030, L504.2610, L5000.0012, L503.6550, L100.0100, L100.9950, L101.9900, L500.4050 #### [facility] [place], [address] Eosinophil percentageOrdered By: Mohan Tobias on 09-07-2024 Eosinophils/100 WBC (Bld) 1.0 % 0-5 [facility] Epithelial cells.squamous LM Ql (Urine sed)Ordered By: Mohan Tobias on 09-07-2024 Epithelial cells.squamous LM.HPF (Urine sed) [#/Area] 0 /[HPF] 0-5 [facility] Erythrocyte distribution wid th (RBC) [Ratio]Ordered By: Mohan Tobias on 09-07-2024 Erythrocyte distribution width (RBC) [Entitic vol] 44.7 fL High 35.1-43.9 [facility] Erythrocyte distribution wid th ratioOrdered By: Mohan Tobias on 09-07-2024 Erythrocyte distribution width (RBC) [Ratio] 13.0 % 11.6-14.6 [facility] Erythrocyte distribution wid th standard deviationOrdered By: Mohan Tobias on 09-07-2024 Erythrocyte distribution width (RBC) [Ratio] 44.7 fl High 35.1-43.9 [facility] GFR/1.73 sq M.predicted ynes g non-blacks MDRD (S/P/Bld) [Vol rate/Area]Ordered By: Mohan Tobias on 09-07-2024 Estimated GFR (MDRD) Non-Af Amer 74 >60 [facility] Comment on above: mL/min/1.73m2 CKD-EP I Creatinine Equation (2020) Glomerular filtration rate ( GFR) estimation/1.73 sq m using serum, plasma, or whole bOrdered By: Mohan Tobias on 09-07-2024 GFR/1.73 sq M.predicted among non-blacks MDRD (S/P/Bld) [Vol rate/Area] 74 mL/min/{1.73_m2} >60 [facility] Comment on above: mL/min/1.73m2 CKD-EP I Creatinine Equation (2020) Glucose Ql (U)Ordered By: Sofie Tobias on 09-07-2024 Urine Glucose (UA) Normal mg/dl Normal [facility] Hematocrit Auto (Bld) [Volum e fraction]Ordered By: Mohan Tobias on 09-07-2024 Hematocrit (Bld) [Volume fraction] 39.3 % Low 40-54 [facility] Hemoglobin A1con 09-07-2024 HbA1c (Bld) [Mass fraction] 6.5 % Normal <=5.6 [facility] Comment on above: Performed By: #### L 506.0250, L501.6710, L503.6030, L504.2610, L5000.0012, L503.6550, L100.0100, L100.9950, L101.9900, L500.4050 #### [facility] [address] [place] [address], [id number] Hemoglobin A1c percentageOrd ered By: Mohan Tobias on 09-07-2024 HbA1c (Bld) [Mass fraction] 6.5 % >5.7 [facility] Hemoglobin measurementOrdere d By: Mohan Tobias on 09-07-2024 Hemoglobin (Bld) [Mass/Vol] 14.5 g/dL 13.0-16.5 [facility] Immature granulocytes/100 WB C Auto (Bld)Ordered By: Mohan Tobias on 09-07-2024 Immature granulocytes/100 WBC (Bld) 0.800 % 0.0-0.9 [facility] Comment on above: IG% - Immature Granu locytes (promyelocytes, myelocytes and metamyelocytes) > 1% indicates that a LEFT SHIFT is Present. Ketones Test strip Ql (U)Ord ered By: Mohan Tobias on 09-07-2024 Ketones Ql (U) Negative Negative [facility] LDL calc ser/plasOrdered By: Mohan Tobias on 09-07-2024 Cholesterol in LDL [Mass/Vol] 83 mg/dL [facility] Comment on above: Srnyxacrxr=053-910 m g/dL & Higher Iihx=891 mg/dL or greater LDL Cholesterol, Calculated 83 mg/dL [facility] Comment on above: Ablrrnieba=314-705 m g/dL & Higher Dxad=680 mg/dL or greater Laboratory - Chemistry and C hemistry - challengeOrdered By: Mohan Tobias on 09-07-2024 AST [Catalytic activity/Vol] 17 U/L <38 [facility] Lipid Profileon 09-07-2024 CHOL:HDL 4.55 Normal [facility] Comment on above: Performed By: #### L 506.0250, L501.6710, L503.6030, L504.2610, L5000.0012, L503.6550, L100.0100, L100.9950, L101.9900, L500.4050 #### [facility] [address] [place], [place], [phone] (638) Cholesterol [Mass/Vol] 165 mg/dL Normal <=200 [facility] Comment on above: Result Comment: Chol esterol level, Desirable <200 mg/dL Borderline high cholesterol 200-239 mg/dL High cholesterol >=240 mg/dL Recommendations of the NCEP Adult Treatment Panel for the following risk-cutoff thresholds for the [place] population. Performed By: #### L 506.0250, L501.6710, L503.6030, L504.2610, L5000.0012, L503.6550, L100.0100, L100.9950, L101.9900, L500.4050 #### [facility] [address] [place], [place], [phone] (984) Cholesterol in HDL [Mass/Vol] 36 mg/dL Low [facility] Comment on above: Result Comment: Sofia onal Cholesterol Education Program (NCEP) guidelines: <40 mg/dL: Low HDL-cholesterol (major risk factor for CHD) >= 60 mg/dL: High HDL-cholesterol (negative risk factor for CHD) HDL-cholesterol is affected by a number of factors, e.g. smoking, exercise, hormones, sex and age. Performed By: #### L 506.0250, L501.6710, L503.6030, L504.2610, L5000.0012, L503.6550, L100.0100, L100.9950, L101.9900, L500.4050 #### [facility] [address] [place], [address] Cholesterol in LDL [Mass/Vol] 83 mg/dL Normal [facility] Comment on above: Result Comment: Bord djvvvd=374-222 mg/dL Higher Oivr=541 mg/dL or greater Performed By: #### L 506.0250, L501.6710, L503.6030, L504.2610, L5000.0012, L503.6550, L100.0100, L100.9950, L101.9900, L500.4050 #### [facility] [address] [place], [address] Cholesterol in VLDL [Mass/Vol] 46 mg/dL High 5-40 [facility] Comment on above: Performed By: #### L 506.0250, L501.6710, L503.6030, L504.2610, L5000.0012, L503.6550, L100.0100, L100.9950, L101.9900, L500.4050 #### [facility] [address] [place], [address] (870) Triglyceride [Mass/Vol] 230 mg/dL High [facility] Comment on above: Result Comment: The drugs N-Acetylcysteine and Metamizole may falsely depress this assay. Normal range: <150 mg/dL Borderline High: 150-199 mg/dL High: 200-499 mg/dL Very High: >500 mg/dL Performed By: #### L 506.0250, L501.6710, L503.6030, L504.2610, L5000.0012, L503.6550, L100.0100, L100.9950, L101.9900, L500.4050 #### [facility] [address] [place], [address] (404) Lymphocytes Auto (Unsp spec) [#/Vol]Ordered By: Mohan Tobias on 09-07-2024 Lymphocytes (Bld) [#/Vol] 2.41 10*3/uL 0.83-4.51 [facility] Lymphocytes/100 WBC Auto (Un sp spec)Ordered By: Mohan Tobias on 09-07-2024 Lymphocytes/100 WBC (Bld) 47.5 % High 19-41 [facility] MCV (mean corpuscular volume ) determinationOrdered By: Mohan Tobias on 09-07-2024 MCV (RBC) [Entitic vol] 94.0 fL 80-94 [facility] Magnesiumon 09-07-2024 Magnesium [Mass/Vol] 2.1 mg/dL Normal 1.5-2.2 [facility] Comment on above: Performed By: #### L 506.0250, L501.6710, L503.6030, L504.2610, L5000.0012, L503.6550, L100.0100, L100.9950, L101.9900, L500.4050 #### [facility] [address] [place] [address]. [place], [address] Magnesium (Unsp spec) [Mass/ Vol]Ordered By: Mohan Tobias on 09-07-2024 Magnesium [Mass/Vol] 2.1 mg/dL 1.5-2.2 [facility] Magnesium measurement (mass/ volume)Ordered By: Mohan Tobias on 09-07-2024 Magnesium (Unsp spec) [Mass/Vol] 2.1 mg/dL 1.5-2.2 [facility] Mean corpuscular hemoglobin (MCH) determinationOrdered By: Mohan Tobias on 09-07-2024 MCH (RBC) [Entitic mass] 34.7 pg High 27.0-32.0 [facility] Mean corpuscular hemoglobin concentration (MCHC) determinationOrdered By: Mohan Tobias on 09-07-2024 MCHC (RBC) [Mass/Vol] 36.9 g/dL High 32-36 [facility] Mean platelet volume determi nationOrdered By: Mohan Tobias on 09-07-2024 Platelet mean volume (Bld) [Entitic vol] 9.6 fL 6.2-12.0 [facility] Microscopic analysis of urin e for red blood cells (RBC)Ordered By: Mohan Tobias on 09-07-2024 Microscopic analysis of urine for red blood cells (RBC) 0 SEEN /hpf 0-5 [facility] Urine RBC 0 SEEN /hpf 0-5 [facility] Monocyte percentageOrdered B y: Mohan Tobias on 09-07-2024 Monocytes/100 WBC (Bld) 22.3 % High 0-10 [facility] Mucus LM Ql (Urine sed)Order ed By: Mohan Tobias on 09-07-2024 Mucus Ql (Urine sed) 0 SEEN /hpf [facility] Neutrophil percentageOrdered By: Mohan Tobias on 09-07-2024 Neutrophils/100 WBC (Bld) 28.0 % Low 47-70 [facility] Nitrite Test strip Ql (U)Ord ered By: Mohan Tobias on 09-07-2024 Nitrite Ql (U) Negative Negative [facility] Nucleated red blood cell per centageOrdered By: Mohan Tobias on 09-07-2024 Nucleated RBC/100 WBC (Bld) [Ratio] 0 % 0-5 [facility] PSA, total screeningOrdered By: Mohan Tobias on 09-07-2024 Prostate Specific Antigen Screen 3.01 ng/mL 0.02-4.00 [facility] Comment on above: This test was perfor med using the [employer] tPSA method. Measured values of a patient sample can vary depending on the testing procedure used. PSA values determined on patient samples by different testing procedures cannot be used interchangeably. If there is a change in PSA assays while monitoring therapy, sequential testing should be performed to confirm baseline values. PSA,Total - Annual Screenon 09-07-2024 PSA,TOT SCREEN 3.01 ng/mL Normal 0.02-4.00 [facility] Comment on above: Result Comment: This test was performed using the [employer] tPSA method. Measured values of a patient??sample can vary depending on the testing procedure used. PSA values determined on patient samples by different testing procedures cannot be used interchangeably. If there is a change in PSA assays while monitoring therapy, sequential testing should be performed to confirm baseline values. Performed By: #### L 506.0250, L501.6710, L503.6030, L504.2610, L5000.0012, L503.6550, L100.0100, L100.9950, L101.9900, L500.4050 #### [facility] [place], [address] Platelet countOrdered By: Sofie Tobias on 09-07-2024 Platelets (Bld) [#/Vol] 104 10*3/uL Low 150-450 [facility] Potassium (Unsp spec) [Mass/ Vol]Ordered By: Mohan Tobias on 09-07-2024 Potassium [Moles/Vol] 3.6 mmol/L 3.3-5.1 [facility] Potassium measurement (mass/ volume)Ordered By: Mohan Tobias on 09-07-2024 Potassium (Unsp spec) [Mass/Vol] 3.6 mmol/L 3.3-5.1 [facility] Protein Test strip Ql (U)Ord ered By: Mohan Tobias on 09-07-2024 Protein Ql (U) 15 mg/dl High Negative [facility] RBC Auto (Bld) [#/Vol]Ordere d By: Mohan Tobias on 09-07-2024 RBC (Bld) [#/Vol] 4.18 10*6/uL Low 4.6-6.2 [facility] Screening total cholesterol/ high density lipoprotein (HDL) cholesterol ratioOrdered By: Mohan Tobias on 09-07-2024 Cholesterol.total/Beth sterol in HDL [Mass ratio] 4.55 {ratio} [facility] Serum creatinine measurement (mass/volume)Ordered By: Mohan Tobias on 09-07-2024 Creatinine [Mass/Vol] 1.09 mg/dL 0.70-1.20 [facility] Serum globulin measurementOr dered By: Mohan Tobias on 09-07-2024 Globulin (S) [Mass/Vol] 2.9 g/dL 2.2-4.2 [facility] Serum glucose measurement (m ass/volume)Ordered By: Mohan Tobias on 09-07-2024 Glucose [Mass/Vol] 113 mg/dL High 70-99 [facility] Serum or plasma alanine rowley otransferase (ALT) measurementOrdered By: Mohan Tobias on 09-07-2024 ALT [Catalytic activity/Vol] 14 U/L <47 [facility] Serum or plasma albumin sterling urement (mass/volume)Ordered By: Mohan Tobias on 09-07-2024 Albumin [Mass/Vol] 4.0 g/dL 3.4-4.8 [facility] Serum or plasma albumin/glob ulin mass ratioOrdered By: Mohan Tobias on 09-07-2024 Albumin/Globulin [Mass ratio] 1.4 {ratio} 0.9-2.4 [facility] Serum or plasma alkaline jeannine sphatase measurementOrdered By: Mohan Tobias on 09-07-2024 ALP [Catalytic activity/Vol] 97 U/L 40-129 [facility] Serum or plasma calcium sterling urement (mass/volume)Ordered By: Mohan Tobias on 09-07-2024 Calcium [Mass/Vol] 9.4 mg/dL 7.6-11.0 [facility] Serum or plasma cholesterol in HDL measurement (mass/volume)Ordered By: Mohan Tobias on 09-07-2024 Cholesterol in HDL [Mass/Vol] 36 mg/dL Low >40 [facility] Comment on above: National Cholesterol Education Program (NCEP) guidelines:<40 mg/dL: Low HDL-cholesterol (major risk factor for CHD)>= 60 mg/dL: High HDL-cholesterol (negative risk factor for CHD)HDL-cholesterol is affected by a number of factors, e.g. smoking, exercise, hormones, sex and age. Serum or plasma cholesterol measurement (mass/volume)Ordered By: Mohan Tobias on 09-07-2024 Cholesterol [Mass/Vol] 165 mg/dL <201 [facility] Comment on above: Cholesterol level, D esirable <200 mg/dLBorderline high cholesterol 200-239 mg/dLHigh cholesterol >=240 mg/dLRecommendations of the NCEP Adult Treatment Panel for the following risk-cutoff thresholds for the [place] population. Serum or plasma urea nitroge n measurement (mass/volume)Ordered By: Mohan Tobias on 09-07-2024 Urea nitrogen [Mass/Vol] 20 mg/dL High 4-19 [facility] Sodium levelOrdered By: Mohan Tobias on 09-07-2024 Sodium [Moles/Vol] 140 mmol/L 133-145 [facility] Squamous epithelial cells de tection in urine sediment by light microscopyOrdered By: Mohan Tobias on 09-07-2024 Epithelial cells.squamous LM Ql (Urine sed) 0 SEEN /hpf 0-5 [facility] TSH DL <= 0.005 mIU/L QnOrde red By: Mohan Tobias on 09-07-2024 Thyroid Stimulating Hormone (TSH) 2.430 uIU/mL 0.300-4.20 0 [facility] TSH Qn 2.430 uIU/mL 0.300-4.20 0 [facility] Thyroid Stim Hormone (TSH)on 09-07-2024 TSH 2.430 uIU/mL Normal 0.300-4.20 0 [facility] Comment on above: Performed By: #### L 506.0250, L501.6710, L503.6030, L504.2610, L5000.0012, L503.6550, L100.0100, L100.9950, L101.9900, L500.4050 #### [facility] [address] [place], [place], [phone] Total proteinOrdered By: Jesus Tobias on 09-07-2024 Protein [Mass/Vol] 6.9 g/dL 5.9-8.4 [facility] Triglycerides measurementOrd ered By: Mohan Tobias on 09-07-2024 Triglyceride [Mass/Vol] 230 mg/dL High <199 [facility] Comment on above: The drugs N-Acetylcy steine and Metamizole may falsely depress this assay. Normal range: <150 mg/dLBorderline High: 150-199 mg/dLHigh: 200-499 mg/dLVery High: >500 mg/dL Urinalysis, Completeon 09-07 BACTERIA 0 SEEN Normal None Seen [facility] Comment on above: Order Comment: CLEAN CATCH Performed By: #### L 506.0250, L501.6710, L503.6030, L504.2610, L5000.0012, L503.6550, L100.0100, L100.9950, L101.9900, L500.4050 #### [facility] [address] [place], [place], [phone] (758) EPI,SQUAMOUS 0 SEEN Normal 0-5 [facility] Comment on above: Order Comment: CLEAN CATCH Performed By: #### L 506.0250, L501.6710, L503.6030, L504.2610, L5000.0012, L503.6550, L100.0100, L100.9950, L101.9900, L500.4050 #### [facility] [address] [place], [place], [phone] Mucus Ql (Urine sed) 0 SEEN Normal [facility] Comment on above: Order Comment: CLEAN CATCH Performed By: #### L 506.0250, L501.6710, L503.6030, L504.2610, L5000.0012, L503.6550, L100.0100, L100.9950, L101.9900, L500.4050 #### [facility] [address] [place], [place], [phone] (083) RBC 0 SEEN Normal 0-[address] [place] [address] Comment on above: Order Comment: CLEAN CATCH Performed By: #### L 506.0250, L501.6710, L503.6030, L504.2610, L5000.0012, L503.6550, L100.0100, L100.9950, L101.9900, L500.4050 #### [facility] [address] [place], [place], [phone] WBC 0 SEEN Normal 0-5 [facility] Comment on above: Order Comment: CLEAN CATCH Performed By: #### L 506.0250, L501.6710, L503.6030, L504.2610, L5000.0012, L503.6550, L100.0100, L100.9950, L101.9900, L500.4050 #### [facility] [place], [address] Urine blood detectionOrdered By: Mohan Tobias on 09-07-2024 Urine Occult Blood 10 /ul High Negative [facility] Urine clarityOrdered By: Jesus Tobias on 09-07-2024 Clarity (U) Clear Clear [facility] Urine color determinationOrd ered By: Mohan Tobias on 09-07-2024 Color (U) Yellow Yellow [facility] Urine glucose detectionOrder ed By: Mohan Tobias on 09-07-2024 Glucose Ql (U) Normal mg/dl Normal [facility] Urine leukocyte esterase det ection by dipstickOrdered By: Mohan Tobias on 09-07-2024 Leukocyte esterase Test strip Ql (U) Negative Negative [facility] Urine pHOrdered By: Mohan cheema on 09-07-2024 pH (U) 7.0 [pH] 5.0 - 8.0 [facility] Urine sediment bacteria coun t by microscopy (number/high power field)Ordered By: Mohan Tobias on 09-07-2024 Bacteria LM.HPF (Urine sed) [#/Area] 0 /[HPF] None Seen [facility] Urine specific gravity measu rementOrdered By: Mohan Tobias on 09-07-2024 Specific gravity (U) [Rel density] 1.010 1.002-1.03 0 [facility] Urine urobilinogen measureme ntOrdered By: Mohan Tobias on 09-07-2024 Urobilinogen Ql (U) Normal mg/dl Normal [facility] Urobilinogen Ql (U)Ordered B y: Mohan Tobias on 09-07-2024 Urine Urobilinogen Normal mg/dl Normal [facility] White blood cell (WBC) count Ordered By: Mohan Tobias on 09-07-2024 WBC (Bld) [#/Vol] 5.1 10*3/uL 4.4-11.0 [facility] White blood cell countOrdere d By: Mohan Tobias on 09-07-2024 Urine WBC 0 SEEN /hpf 0-5 [facility] White blood cell count 0 SEEN /hpf 0-5 [facility] CBC W/Diff, Automatedon 12-0 4-2023 Absolute Lymph 2.22 X10 3/uL Normal 0.83-4.51 [facility] Comment on above: Order Comment: Order Date: 05/03/24Order Info: [id number] - CBCD Performed By: #### L 100.0100, L501.9520, L501.9910, L500.4100, L501.9985, L500.4050, L501.5200 ####[facility] [address] [place], [address] Absolute Neut 1.3 X10 3/uL Low 2.0-7.7 [facility] Comment on above: Order Comment: Order Date: 05/03/24Order Info: [id number] - CBCD Performed By: #### L 100.0100, L501.9520, L501.9910, L500.4100, L501.9985, L500.4050, L501.5200 ####[facility] [address] [place], [address] Basophils/100 WBC (Bld) 0.2 % Normal 0-1 [facility] Comment on above: Order Comment: Order Date: 05/03/24Order Info: [id number] - CBCD Performed By: #### L 100.0100, L501.9520, L501.9910, L500.4100, L501.9985, L500.4050, L501.5200 ####[facility] [address] [place], [address] Eosinophils/100 WBC (Bld) 1.3 % Normal 0-5 [facility] Comment on above: Order Comment: Order Date: 05/03/24Order Info: [id number] - CBCD Performed By: #### L 100.0100, L501.9520, L501.9910, L500.4100, L501.9985, L500.4050, L501.5200 ####[facility] [address] [place], [address] Erythrocyte distribution width (RBC) [Ratio] 12.9 % Normal 11.6-14.6 [facility] Comment on above: Order Comment: Order Date: 05/03/24Order Info: 018-1 - CBCD Performed By: #### L 100.0100, L501.9520, L501.9910, L500.4100, L501.9985, L500.4050, L501.5200 ####[facility] [address] [place], [address] Hematocrit (Bld) [Volume fraction] 40.2 % Normal 40-54 [facility] Comment on above: Order Comment: Order Date: 05/03/24Order Info: 018- - CBCD Performed By: #### L 100.0100, L501.9520, L501.9910, L500.4100, L501.9985, L500.4050, L501.5200 ####[facility] [address] [place], [address] Hemoglobin (Bld) [Mass/Vol] 14.3 g/dL Normal 13.0-16.5 [facility] Comment on above: Order Comment: Order Date: 05/03/24Order Info: 0184-1 - CBCD Performed By: #### L 100.0100, L501.9520, L501.9910, L500.4100, L501.9985, L500.4050, L501.5200 ####[facility] [address] [place], [address] IG% 0.600 Normal 0.0-0.9 [facility] Comment on above: Order Comment: Order Date: 05/03/24Order Info: 0184-1 - CBCD Result Comment: IG% - Immature Granulocytes (promyelocytes, myelocytes and metamyelocytes) > 1% indicates that a LEFT SHIFT is Present. Performed By: #### L 100.0100, L501.9520, L501.9910, L500.4100, L501.9985, L500.4050, L501.5200 ####[facility] [address] [place], [address] Lymphocytes/100 WBC (Bld) 47.3 % High 19-41 [facility] Comment on above: Order Comment: Order Date: 05/03/24Order Info: 0184-1 - CBCD Performed By: #### L 100.0100, L501.9520, L501.9910, L500.4100, L501.9985, L500.4050, L501.5200 ####[facility] [address] [place], [address] MCH (RBC) [Entitic mass] 34.0 pg High 27.0-32.0 [facility] Comment on above: Order Comment: Order Date: 05/03/24Order Info: 0184- - CBCD Performed By: #### L 100.0100, L501.9520, L501.9910, L500.4100, L501.9985, L500.4050, L501.5200 ####[facility] [address] [place], [address] MCHC (RBC) [Mass/Vol] 35.6 g/dL Normal 32-36 [facility] Comment on above: Order Comment: Order Date: 05/03/24Order Info: 0184-1 - CBCD Performed By: #### L 100.0100, L501.9520, L501.9910, L500.4100, L501.9985, L500.4050, L501.5200 ####[facility] [address] [facility] [place], [address] MCV (RBC) [Entitic vol] 95.5 fL High 80-94 [facility] Comment on above: Order Comment: Order Date: 05/03/24Order Info: 0184-1 - CBCD Performed By: #### L 100.0100, L501.9520, L501.9910, L500.4100, L501.9985, L500.4050, L501.5200 ####[facility] [address] [place], [address] Monocytes/100 WBC (Bld) 22.6 % High 0-10 [facility] Comment on above: Order Comment: Order Date: 05/03/24Order Info: 0184-1 - CBCD Performed By: #### L 100.0100, L501.9520, L501.9910, L500.4100, L501.9985, L500.4050, L501.5200 ####[facility] [address] [place], [address] Neutrophils/100 WBC (Bld) 28.0 % Low 47-70 [facility] Comment on above: Order Comment: Order Date: 05/03/24Order Info: 0184-1 - CBCD Performed By: #### L 100.0100, L501.9520, L501.9910, L500.4100, L501.9985, L500.4050, L501.5200 ####[facility] [address] [place], [address] Nucleated RBC (Bld) [#/Vol] 0 10*3/uL Normal 0-5 [facility] Comment on above: Order Comment: Order Date: 05/03/24Order Info: 0184-1 - CBCD Performed By: #### L 100.0100, L501.9520, L501.9910, L500.4100, L501.9985, L500.4050, L501.5200 ####[facility] [address] [facility] [place], [address] Platelet mean volume (Bld) [Entitic vol] 9.5 fL Normal 6.2-12.0 [facility] Comment on above: Order Comment: Order Date: 05/03/24Order Info: 0184-1 - CBCD Performed By: #### L 100.0100, L501.9520, L501.9910, L500.4100, L501.9985, L500.4050, L501.5200 ####[facility] [address] [place], [address] Platelets (Bld) [#/Vol] 103 10*3/uL Low 150-450 [facility] Comment on above: Order Comment: Order Date: 05/03/24Order Info: 0184-1 - CBCD Performed By: #### L 100.0100, L501.9520, L501.9910, L500.4100, L501.9985, L500.4050, L501.5200 ####[facility] [address] [place], [address] RBC (Bld) [#/Vol] 4.21 10*6/uL Low 4.6-6.2 [facility] Comment on above: Order Comment: Order Date: 05/03/24Order Info: 018- - CBCD Performed By: #### L 100.0100, L501.9520, L501.9910, L500.4100, L501.9985, L500.4050, L501.5200 ####[facility] [address] [place], [address] RDW SD 45.0 fl High 35.1-43.9 [facility] Comment on above: Order Comment: Order Date: 05/03/24Order Info: 018-1 - CBCD Performed By: #### L 100.0100, L501.9520, L501.9910, L500.4100, L501.9985, L500.4050, L501.5200 ####[facility] [address] [place], [address] WBC (Bld) [#/Vol] 4.7 10*3/uL Normal 4.4-11.0 [facility] Comment on above: Order Comment: Order Date: 05/03/24Order Info: 0184-1 - CBCD Performed By: #### L 100.0100, L501.9520, L501.9910, L500.4100, L501.9985, L500.4050, L501.5200 ####[facility] [address] [place], [address] Comprehensive Metabolic Prof ilon 05-03-2024 Albumin [Mass/Vol] 3.7 g/dL Normal 3.2-5.0 [facility] Comment on above: Order Comment: Order Date: 05/03/24Order Info: 86-1 - CMPOrder Info: [id number] - LIPIDOrder Info: [id number] - MGOrder Info: 3015-3 - TSHOrder Info: 2857-1 - PSA Performed By: #### L 100.0100, L501.9520, L501.9910, L500.4100, L501.9985, L500.4050, L501.5200 ####[facility] [address] [place], [address] Albumin/Globulin [Mass ratio] 1.1 {ratio} Normal 0.9-2.4 [facility] Comment on above: Order Comment: Order Date: 05/03/24Order Info: 86-1 - CMPOrder Info: [id number] - LIPIDOrder Info: [id number] - MGOrder Info: 3 - TSHOrder Info: 2857-1 - PSA Performed By: #### L 100.0100, L501.9520, L501.9910, L500.4100, L501.9985, L500.4050, L501.5200 ####[facility] [address] [place], [address] ALK P 95 U/L Normal 45-117 [facility] Comment on above: Order Comment: Order Date: 05/03/24Order Info: 86-1 - CMPOrder Info: [id number] - LIPIDOrder Info: [id number] - MGOrder Info: 3 - TSHOrder Info: 2857-1 - PSA Performed By: #### L 100.0100, L501.9520, L501.9910, L500.4100, L501.9985, L500.4050, L501.5200 ####[facility] [address] [place], [address] ALT [Catalytic activity/Vol] 30 U/L Normal 16-61 [facility] Comment on above: Order Comment: Order Date: 05/03/24Order Info: 86-1 - CMPOrder Info: [id number] - LIPIDOrder Info: [id number] - MGOrder Info: 3 - TSHOrder Info: 2856-1 - PSA Performed By: #### L 100.0100, L501.9520, L501.9910, L500.4100, L501.9985, L500.4050, L501.5200 ####[facility] [address] [place], [address] AST [Catalytic activity/Vol] 16 U/L Normal 15-37 [facility] Comment on above: Order Comment: Order Date: 05/03/24Order Info: 86-1 - CMPOrder Info: [id number] - LIPIDOrder Info: [id number] - MGOrder Info: 3 - TSHOrder Info: 2857-1 - PSA Performed By: #### L 100.0100, L501.9520, L501.9910, L500.4100, L501.9985, L500.4050, L501.5200 ####[facility] [address] [place], [address] Bilirubin [Mass/Vol] 0.70 mg/dL Normal 0.20-1.00 [facility] Comment on above: Order Comment: Order Date: 05/03/24Order Info: 0786-1 - CMPOrder Info: [id number] - LIPIDOrder Info: [id number] - MGOrder Info: 3 - TSHOrder Info: 2857-1 - PSA Result Comment: For patients on eltrombopag therapy, use of Dimension [place] TBIL is not recommended. Performed By: #### L 100.0100, L501.9520, L501.9910, L500.4100, L501.9985, L500.4050, L501.5200 ####[facility] [address] [place], [address] BUN/CRE 19.8 RATIO Normal 10-20 [facility] Comment on above: Order Comment: Order Date: 05/03/24Order Info: 0786-1 - CMPOrder Info: [id number] - LIPIDOrder Info: [id number] - MGOrder Info: [id number] - TSHOrder Info: 2857-1 - PSA Performed By: #### L 100.0100, L501.9520, L501.9910, L500.4100, L501.9985, L500.4050, L501.5200 ####[facility] [address] [place], [address] CA,Total 9.1 mg/dL Normal 8.5-10.1 [facility] Comment on above: Order Comment: Order Date: 05/03/24Order Info: 86-1 - CMPOrder Info: [id number] - LIPIDOrder Info: [id number] - MGOrder Info: 3015-3 - TSHOrder Info: 2857-1 - PSA Performed By: #### L 100.0100, L501.9520, L501.9910, L500.4100, L501.9985, L500.4050, L501.5200 ####[facility] [address] [place], [address] Chloride [Moles/Vol] 106 mmol/L Normal 98-107 [facility] Comment on above: Order Comment: Order Date: 05/03/24Order Info: 0786-1 - CMPOrder Info: [id number] - LIPIDOrder Info: [id number] - MGOrder Info: 3016-3 - TSHOrder Info: 2857-1 - PSA Performed By: #### L 100.0100, L501.9520, L501.9910, L500.4100, L501.9985, L500.4050, L501.5200 ####[facility] [address] [place], [place], [address] CO2 [Moles/Vol] 28.0 mmol/L Normal 21.0-32.0 [facility] Comment on above: Order Comment: Order Date: 05/03/24Order Info: 86-1 - CMPOrder Info: [id number] - LIPIDOrder Info: [id number] - MGOrder Info: [id number] - TSHOrder Info: 2851 - PSA Performed By: #### L 100.0100, L501.9520, L501.9910, L500.4100, L501.9985, L500.4050, L501.5200 ####[facility] [address] [place], [place], [address] Creatinine [Mass/Vol] 1.11 mg/dL Normal 0.70-1.30 [facility] Comment on above: Order Comment: Order Date: 05/03/24Order Info: 785-1 - CMPOrder Info: [id number] - LIPIDOrder Info: [id number] - MGOrder Info: 3 - TSHOrder Info: 2851 - PSA Result Comment: The validity of the calculated GFR GFRAA in patients over 70 years has not been determined. Clinical correlation is essential. Performed By: #### L 100.0100, L501.9520, L501.9910, L500.4100, L501.9985, L500.4050, L501.5200 ####[facility] [address] [place], [place], [address] EST GFR - AA 85 mL/min Normal >60 [facility] Comment on above: Order Comment: Order Date: 05/03/24Order Info: 86-1 - CMPOrder Info: [id number] - LIPIDOrder Info: [id number] - MGOrder Info: 3013 - TSHOrder Info: 2857-1 - PSA Result Comment: Afri can [facility] GFR Calc Performed By: #### L 100.0100, L501.9520, L501.9910, L500.4100, L501.9985, L500.4050, L501.5200 ####[facility] [address] [place], [address] GAP 5 Normal 5-15 [facility] Comment on above: Order Comment: Order Date: 05/03/24Order Info: 785-1 - CMPOrder Info: - LIPIDOrder Info: [id number] - MGOrder Info: 3 - TSHOrder Info: [id number] - PSA Performed By: #### L 100.0100, L501.9520, L501.9910, L500.4100, L501.9985, L500.4050, L501.5200 ####[facility] [address] [place], [address] GFR/1.73 sq M.predicted among non-blacks MDRD (S/P/Bld) [Vol rate/Area] 70 mL/min/{1.73_m2} Normal >60 [facility] Comment on above: Order Comment: Order Date: 05/03/24Order Info: 785- - CMPOrder Info: - LIPIDOrder Info: [id number] - MGOrder Info: [id number] - TSHOrder Info: 2856-05 - PSA Result Comment: Non- GFR Calc Performed By: #### L 100.0100, L501.9520, L501.9910, L500.4100, L501.9985, L500.4050, L501.5200 ####[facility] [address] [place], [address] Globulin (S) [Mass/Vol] 3.5 g/dL Normal 2.2-4.2 [facility] Comment on above: Order Comment: Order Date: 05/03/24Order Info: 785- - CMPOrder Info: - LIPIDOrder Info: [id number] - MGOrder Info: 3 - TSHOrder Info: 285-1 - PSA Performed By: #### L 100.0100, L501.9520, L501.9910, L500.4100, L501.9985, L500.4050, L501.5200 ####[facility] [address] [place], [address] Glucose [Mass/Vol] 122 mg/dL High 74-106 [facility] Comment on above: Order Comment: Order Date: 05/03/24Order Info: 785-1 - CMPOrder Info: [id number] - LIPIDOrder Info: [id number] - MGOrder Info: [id number] - TSHOrder Info: 2856-05 - PSA Result Comment: Fast ing Glucose result from 100 to 125 mg/dL suggests IMPAIRED HOMEOSTASIS per A.D.A. criteria. Performed By: #### L 100.0100, L501.9520, L501.9910, L500.4100, L501.9985, L500.4050, L501.5200 ####[facility] [address] [place], [address] Potassium [Moles/Vol] 3.5 mmol/L Normal 3.5-5.1 [facility] Comment on above: Order Comment: Order Date: 05/03/24Order Info: 785-1 - CMPOrder Info: [id number] - LIPIDOrder Info: [id number] - MGOrder Info: [id number] - TSHOrder Info: 2856- - PSA Performed By: #### L 100.0100, L501.9520, L501.9910, L500.4100, L501.9985, L500.4050, L501.5200 ####[facility] [address] [place], [address] Sodium [Moles/Vol] 139 mmol/L Normal 136-145 [facility] Comment on above: Order Comment: Order Date: 05/03/24Order Info: 785- - CMPOrder Info: [id number] - LIPIDOrder Info: [id number] - MGOrder Info: 6-3 - TSHOrder Info: 2857-1 - PSA Performed By: #### L 100.0100, L501.9520, L501.9910, L500.4100, L501.9985, L500.4050, L501.5200 ####[facility] [address] [place], [place], [address] T PROT 7.2 g/dL Normal 6.4-8.2 [facility] Comment on above: Order Comment: Order Date: 05/03/24Order Info: 0786-1 - CMPOrder Info: [id number] - LIPIDOrder Info: [id number] - MGOrder Info: 63 - TSHOrder Info: 2857-1 - PSA Performed By: #### L 100.0100, L501.9520, L501.9910, L500.4100, L501.9985, L500.4050, L501.5200 ####[facility] [address] [place], [place], [id number] Urea nitrogen [Mass/Vol] 22 mg/dL High 7-18 [facility] Comment on above: Order Comment: Order Date: 05/03/24Order Info: 0786-1 - CMPOrder Info: [id number] - LIPIDOrder Info: [id number] - MGOrder Info: 63 - TSHOrder Info: 2857-1 - PSA Performed By: #### L 100.0100, L501.9520, L501.9910, L500.4100, L501.9985, L500.4050, L501.5200 ####[facility] [address] [place], [place], [phone] Hemoglobin A1con 05-03-2024 HbA1c (Bld) [Mass fraction] 6.2 % High 3.8-5.6 [facility] Comment on above: Order Comment: Order Date: 05/03/24Order Info: [id number] - A1C Result Comment: Norm al < 5.7 % Prediabetic 5.7 - 6.4 % Diabetic >or= 6.5 % Please note range changes. Performed By: #### L 100.0100, L501.9520, L501.9910, L500.4100, L501.9985, L500.4050, L501.5200 ####[facility] [address] [place], [address] Lipid Profileon 05-03-2024 Cholesterol [Mass/Vol] 160 mg/dL Normal 200 [facility] Comment on above: Order Comment: Order Date: 05/03/24Order Info: 86-1 - CMPOrder Info: [id number] - LIPIDOrder Info: [id number] - MGOrder Info: 6-3 - TSHOrder Info: 2857-1 - PSA Result Comment: <200 mg/dL Desirable 200-240 mg/dL Borderline >240 mg/dL High Risk Performed By: #### L 100.0100, L501.9520, L501.9910, L500.4100, L501.9985, L500.4050, L501.5200 ####[facility] [address] [place], [address] Cholesterol in HDL [Mass/Vol] 36 mg/dL Low [facility] Comment on above: Order Comment: Order Date: 05/03/24Order Info: 0786-1 - CMPOrder Info: [id number] - LIPIDOrder Info: [id number] - MGOrder Info: [id number] - TSHOrder Info: 2857-1 - PSA Result Comment: The drugs N-Acetylcysteine and Metamizole may falsely depress this assay. Reference Range HDL <40 mg/dL Low HDL Cholesterol HDL >or= 60 mg/dL High HDL Cholesterol Performed By: #### L 100.0100, L501.9520, L501.9910, L500.4100, L501.9985, L500.4050, L501.5200 ####[facility] [address] [place], [address] Cholesterol in LDL [Mass/Vol] 67 mg/dL Normal 0-130 [facility] Comment on above: Order Comment: Order Date: 05/03/24Order Info: [id number] - CMPOrder Info: - LIPIDOrder Info: [id number] - MGOrder Info: [id number] - TSHOrder Info: [id number] - PSA Performed By: #### L 100.0100, L501.9520, L501.9910, L500.4100, L501.9985, L500.4050, L501.5200 ####[facility] [address] [place], [address] Cholesterol in VLDL [Mass/Vol] 57 mg/dL High 5-40 [facility] Comment on above: Order Comment: Order Date: 05/03/24Order Info: 785-05 - CMPOrder Info: - LIPIDOrder Info: [id number] - MGOrder Info: [id number] - TSHOrder Info: [id number] - PSA Performed By: #### L 100.0100, L501.9520, L501.9910, L500.4100, L501.9985, L500.4050, L501.5200 ####[facility] [address] [place], [address] Triglyceride [Mass/Vol] 287 mg/dL High [facility] Comment on above: Order Comment: Order Date: 05/03/24Order Info: [id number] - CMPOrder Info: - LIPIDOrder Info: [id number] - MGOrder Info: [id number] - TSHOrder Info: 2856-05 - PSA Result Comment: The drugs N-Acetylcysteine and Metamizole may falsely depress this assay. Serum Triglycerides Reference Interval Normal <150 mg/dL Borderline high 150 - 199 mg/dL High 200 - 499 mg/dL Very High > or = 500 mg/dL Performed By: #### L 100.0100, L501.9520, L501.9910, L500.4100, L501.9985, L500.4050, L501.5200 ####[facility] [address] [place], [address] Magnesiumon 05-03-2024 Magnesium [Mass/Vol] 2.4 mg/dL Normal 1.6-2.6 [facility] Comment on above: Order Comment: Order Date: 05/03/24Order Info: 0786-1 - CMPOrder Info: [id number] - LIPIDOrder Info: [id number] - MGOrder Info: 6-3 - TSHOrder Info: 2857-1 - PSA Performed By: #### L 506.0250, L501.6710, L503.6030, L504.2610, L5000.0012, L503.6550, L100.0100, L100.9950, L101.9900, L500.4050 #### [facility] [address] [place], [address] Microalbumin,Random Urineon 05-03-2024 MICROALBUMIN,UR 18.8 mg/L Normal NO RANGE EST. [facility] Comment on above: Performed By: #### L 502.0500 ####[facility] [address] [place], [address] PSA,Total - Annual Screenon 05-03-2024 PSA,TOT SCREEN 1.38 ng/mL Normal 0.00-4.00 [facility] Comment on above: Order Comment: Order Date: 05/03/24Order Info: 785-05 - CMPOrder Info: [id number] - LIPIDOrder Info: [id number] - MGOrder Info: 3 - TSHOrder Info: 2857- - PSA Result Comment: This test was performed using the TPSA assay method for the [employer] chemistry system. Values obtained with different assay methods cannot be used interchangably. When changing PSA assays in the course of monitoring a patient, additional sequential testing should be carried out to confirm baseline values. Performed By: #### L 506.0250, L501.6710, L503.6030, L504.2610, L5000.0012, L503.6550, L100.0100, L100.9950, L101.9900, L500.4050 #### [facility] [address] [place], [place], [address] Thyroid Stim Hormone (TSH)on 05-03-2024 TSH 2.060 uIU/mL Normal 0.358-3.74 0 [facility] Comment on above: Order Comment: Order Date: 05/03/24Order Info: [id number] - CMPOrder Info: [id number] - LIPIDOrder Info: [id number] - MGOrder Info: [id number] - TSHOrder Info: 2857-1 - PSA Performed By: #### L 506.0250, L501.6710, L503.6030, L504.2610, L5000.0012, L503.6550, L100.0100, L100.9950, L101.9900, L500.4050 #### [facility] [address] [place], [place], [address] Hemoglobin A1con 03-23-2024 HbA1c (Bld) [Mass fraction] 6.2 % High 3.8-5.6 [facility] Comment on above: Order Comment: Order Date: 03/23/24Order Info: [id number] - A1C Result Comment: Norm al < 5.7 % Prediabetic 5.7 - 6.4 % Diabetic >or= 6.5 % Please note range changes. Performed By: #### L 506.0250, L501.6710, L503.6030, L504.2610, L5000.0012, L503.6550, L100.0100, L100.9950, L101.9900, L500.4050 #### [facility] [address] [place], [address] Lipid Profileon 03-23-2024 Cholesterol [Mass/Vol] 166 mg/dL Normal 200 [facility] Comment on above: Order Comment: Order Date: 03/23/24Order Info: [id number] - LIPID Result Comment: <200 mg/dL Desirable 200-240 mg/dL Borderline >240 mg/dL High Risk Performed By: #### L 506.0250, L501.6710, L503.6030, L504.2610, L5000.0012, L503.6550, L100.0100, L100.9950, L101.9900, L500.4050 #### [facility] [address] [place], [address] Cholesterol in HDL [Mass/Vol] 40 mg/dL Normal [facility] Comment on above: Order Comment: Order Date: 03/23/24Order Info: [id number] - LIPID Result Comment: The drugs N-Acetylcysteine and Metamizole may falsely depress this assay. Reference Range HDL <40 mg/dL Low HDL Cholesterol HDL >or= 60 mg/dL High HDL Cholesterol Performed By: #### L 506.0250, L501.6710, L503.6030, L504.2610, L5000.0012, L503.6550, L100.0100, L100.9950, L101.9900, L500.4050 #### [facility] [address] [place], [address] Cholesterol in LDL [Mass/Vol] 65 mg/dL Normal 0-130 [facility] Comment on above: Order Comment: Order Date: 03/23/24Order Info: [id number] - LIPID Performed By: #### L 506.0250, L501.6710, L503.6030, L504.2610, L5000.0012, L503.6550, L100.0100, L100.9950, L101.9900, L500.4050 #### [facility] [address] [place], [address] Cholesterol in VLDL [Mass/Vol] 61 mg/dL High 5-40 [facility] Comment on above: Order Comment: Order Date: 03/23/24Order Info: [id number] - LIPID Performed By: #### L 506.0250, L501.6710, L503.6030, L504.2610, L5000.0012, L503.6550, L100.0100, L100.9950, L101.9900, L500.4050 #### [facility] [address] [place], [place], [address] Triglyceride [Mass/Vol] 306 mg/dL High [facility] Comment on above: Order Comment: Order Date: 03/23/24Order Info: [id number] - LIPID Result Comment: The drugs N-Acetylcysteine and Metamizole may falsely depress this assay. Serum Triglycerides Reference Interval Normal <150 mg/dL Borderline high 150 - 199 mg/dL High 200 - 499 mg/dL Very High > or = 500 mg/dL Performed By: #### L 506.0250, L501.6710, L503.6030, L504.2610, L5000.0012, L503.6550, L100.0100, L100.9950, L101.9900, L500.4050 #### [facility] [address] [place], [address] L5000.0012on 03-22-2024 Cobalamin (Vitamin B12) [Mass/Vol] 800 pg/mL Normal 232-1245 [facility] Comment on above: Order Comment: Speci men Comment: A duplicate report has been generateddue to demographicSpecimen Comment: updates. Result Comment: Perf ormed at: - [facility] [address] [id number] [employer] Developer: Germán Rizo PhD, Phone: [phone] Performed By: #### L 506.0250, L501.6710, L503.6030, L504.2610, L5000.0012, L503.6550, L100.0100, L100.9950, L101.9900, L500.4050 ####[facility] [id number] [place], [address] Oncology Visit Reporton 03-01 Oncology Visit Report [facility] [address] [place] [address] OFFICE VISIT Date of Service: 03/20/24 1259 MR#: [id number] Acct: [id number] Name: CHAMP WU Rep #: [id number] : 1955 From: Durga Davis MD Age/Sex: 68/M Location[place] [facility] [place] Status: Signed HPI Subjective Date of Service 03/20/24 Chief Complaint F/u for thrombocytopenia. History of Present Illness 68y.o.man was found to thrombocytopenia over 2 years so referred for further evaluation. He denied bleeding or bruises easily. Blood work on 10/16/2020 showed Platelets of 139. He is on observation and comes for follow up. [facility] Medical History Loss of hearing Wears glasses Diabetes Anemia Back pain Migraine headache Seizures Gastric reflux Non-smoker History of edema Heart murmur History of echocardiogram Hiatal hernia Pancreas cyst Kidney tumor Thrombocytopenia Hypokalemia Epigastric pain HLD (hyperlipidemia) HTN (hypertension) Chest pressure Surgical History Hx of partial nephrectomy Hx of colonoscopy History of esophagogastroduodenoscopy (EGD) H/O vasectomy Family History Sister Diabetes Hypertension CAD (coronary artery disease) Father Hypertension Kidney disease Mother Hypertension Brother Seizures Social History Smoking Status: Never smoker second hand exposure: No alcohol intake: never substance use type: does not use anand/amish: [employer] Intake Vital Signs 09/13/23 15:00 09/17/23 07:03 03/20/24 12:59 Height 5 ft 3 in 5 ft 3 in 5 ft 3 in Weight: 81.221 kg BMI 31.7 BP 144/82 H Blood Pressure Location Lt brachial Position Sitting Respiration 18 Pulse 71 Pulse Source Monitor Temp 98.7 F Temperature Source Temporal Artery Pulse Oximetry (%) 96 Oxygen Delivery Method room air Intake Is patient in pain?: No Allergies Beta-Blockers (Beta-Adrenergic Bloc Adverse Reaction (Intermediate, Verified 03/20/24 13:02) UNK Medications ???Medication ???Instructions ???Recorded ???Confirmed ???Type amlodipine 5 mg tablet 10 mg PO DAILY blood pressure 05/18/16 03/20/24 History multivitamin with folic acid 400 1 tab PO DAILY supplement 08/05/16 03/20/24 History mcg tablet magnesium hydroxide 400 mg/5 mL 5 ml PO DAILY PRN PRN stomach upset 10/16/20 03/20/24 History oral suspension hydrochlorothiazide 12.5 mg tablet 12.5 mg PO DAILY 11/06/20 03/20/24 History melatonin 3 mg capsule 3 mg PO QHS 09/14/22 03/20/24 History triamcinolone acetonide 55 mcg 1 spray intranasal DAILY PRN PRN 09/14/22 03/20/24 History nasal spray aerosol (Nasacort) allergy symptoms lisinopril 20 mg tablet 20 mg PO BID blood pressure 09/13/23 03/20/24 History magnesium glycinate 100 mg (as 200 mg PO DAILY 09/14/23 03/20/24 History glycinate) tablet omeprazole 40 mg capsule,delayed 40 mg PO DAILY #30 caps 01/21/24 03/20/24 Rx release potassium chloride 20 mEq 20 meq PO DAILY #30 tabs 01/21/24 03/20/24 Rx tablet,extended release Have you fallen in the past year?: No Central Venous Access Central Venous Access: No Laboratory Results 03/13/24 09/13/23 09/14/22 15:30 14:03 13:06 WBC 5.0 5.5 5.6 Hgb 14.1 13.7 14.9 Hct 39.6 L 38.4 L 40.9 Plt Count 116 L 100 L 116 L Absolute Neuts (auto) 1.5 L 1.8 L 1.5 L Absolute Lymphs (auto) Creatinine Calcium Iron TIBC Ferritin AST ALT Alkaline Phosphatase Lactate Dehydrogenase Total Protein Total Protein (PEP) Albumin Globulin 09/08/21 03/10/21 10/16/20 12:48 12:35 09:35 WBC 5.2 4.4 3.9 L Hgb 15.2 13.6 13.8 Hct 40.8 38.5 L Plt Count 114 L 112 L 138 L Absolute Neuts (auto) 1.9 L 1.9 L 1.4 L Absolute Lymphs (auto) 2.79 2.00 2.12 Creatinine 1.12 Calcium 9.0 Iron 119 TIBC 389 Ferritin 29 AST 12 L ALT 22 Alkaline Phosphatase 96 Lactate Dehydrogenase 175 Total Protein 7.1 Total Protein (PEP) 6.8 Albumin 3.6 Globulin 3.1 Exam Physical Exam Const alert, oriented x3 and no apparent distress General Appearance: cooperative and comfortable HEENT normocephalic, external ears normal and external nose normal Neck supple Lymph Lymphatic: no lymphadenopathy noted Chest inspection of chest normal Resp normal respiratory effort and clear to auscultation bilaterally Cardio regular rate, regular rhythm, S1 normal heart sound, S2 normal heart sound and no murmurs no CVA tenderness Back/Spine thoracic and lumbar spine normal to inspection Extremity normal to in (more content not included)... Normal [facility] C-reactive protein measureme nt by high sensitivity methodOrdered By: Durga Davis on 03-13-2024 C-Reactive Protein Extended Range 5.05 mg/L High 0.0-3.0 [facility] Comment on above: C-Reactive Protein ( CRP) provides useful information for thediagnosis, therapy and monitoring of inflammatory processesand associated diseases. For the evaluation of Relative Riskfor Cardiovascular Disease, a High Sensitivity CRP (HSCRP)should be ordered. C-reactive protein measurement by high sensitivity method 5.05 mg/L High 0.0-3.0 [facility] Comment on above: C-Reactive Protein ( CRP) provides useful information for thediagnosis, therapy and monitoring of inflammatory processesand associated diseases. For the evaluation of Relative Riskfor Cardiovascular Disease, a High Sensitivity CRP (HSCRP)should be ordered. CBC W/Diff, Automatedon 02-28 Absolute Lymph 2.26 X10 3/uL Normal 0.83-4.51 [facility] Comment on above: Performed By: #### L 506.0250, L501.6710, L503.6030, L504.2610, L5000.0012, L503.6550, L100.0100, L100.9950, L101.9900, L500.4050 #### [facility] [address] [place], [address] Absolute Neut 1.5 X10 3/uL Low 2.0-7.7 [facility] Comment on above: Performed By: #### L 506.0250, L501.6710, L503.6030, L504.2610, L5000.0012, L503.6550, L100.0100, L100.9950, L101.9900, L500.4050 #### [facility] [address] [place], [address] Basophils/100 WBC (Bld) 0.4 % Normal 0-1 [facility] Comment on above: Performed By: #### L 506.0250, L501.6710, L503.6030, L504.2610, L5000.0012, L503.6550, L100.0100, L100.9950, L101.9900, L500.4050 #### [facility] [address] [place], [address] Eosinophils/100 WBC (Bld) 0.8 % Normal 0-5 [facility] Comment on above: Performed By: #### L 506.0250, L501.6710, L503.6030, L504.2610, L5000.0012, L503.6550, L100.0100, L100.9950, L101.9900, L500.4050 #### [facility] [address] [place], [address] Erythrocyte distribution width (RBC) [Ratio] 13.2 % Normal 11.6-14.6 [facility] Comment on above: Performed By: #### L 506.0250, L501.6710, L503.6030, L504.2610, L5000.0012, L503.6550, L100.0100, L100.9950, L101.9900, L500.4050 #### [facility] [address] [facility] [place], [address] Hematocrit (Bld) [Volume fraction] 39.6 % Low 40-54 [facility] Comment on above: Performed By: #### L 506.0250, L501.6710, L503.6030, L504.2610, L5000.0012, L503.6550, L100.0100, L100.9950, L101.9900, L500.4050 #### [facility] [address] [place], [address] Hemoglobin (Bld) [Mass/Vol] 14.1 g/dL Normal 13.0-16.5 [facility] Comment on above: Performed By: #### L 506.0250, L501.6710, L503.6030, L504.2610, L5000.0012, L503.6550, L100.0100, L100.9950, L101.9900, L500.4050 #### [facility] [address] [place], [address] IG% 1.000 High 0.0-0.9 [facility] Comment on above: Result Comment: IG% - Immature Granulocytes (promyelocytes, myelocytes and metamyelocytes) > 1% indicates that a LEFT SHIFT is Present. Performed By: #### L 506.0250, L501.6710, L503.6030, L504.2610, L5000.0012, L503.6550, L100.0100, L100.9950, L101.9900, L500.4050 #### [facility] [address] [place], [address] Lymphocytes/100 WBC (Bld) 45.5 % High 19-41 [facility] Comment on above: Performed By: #### L 506.0250, L501.6710, L503.6030, L504.2610, L5000.0012, L503.6550, L100.0100, L100.9950, L101.9900, L500.4050 #### [facility] [address] [place], [address] MCH (RBC) [Entitic mass] 34.1 pg High 27.0-32.0 [facility] Comment on above: Performed By: #### L 506.0250, L501.6710, L503.6030, L504.2610, L5000.0012, L503.6550, L100.0100, L100.9950, L101.9900, L500.4050 #### [facility] [address] [place], [address] MCHC (RBC) [Mass/Vol] 35.6 g/dL Normal 32-36 [facility] Comment on above: Performed By: #### L 506.0250, L501.6710, L503.6030, L504.2610, L5000.0012, L503.6550, L100.0100, L100.9950, L101.9900, L500.4050 #### [facility] [address] [facility] [place], [address] MCV (RBC) [Entitic vol] 95.7 fL High 80-94 [facility] Comment on above: Performed By: #### L 506.0250, L501.6710, L503.6030, L504.2610, L5000.0012, L503.6550, L100.0100, L100.9950, L101.9900, L500.4050 #### [facility] [address] [facility] [place], [address] Monocytes/100 WBC (Bld) 22.9 % High 0-10 [facility] Comment on above: Performed By: #### L 506.0250, L501.6710, L503.6030, L504.2610, L5000.0012, L503.6550, L100.0100, L100.9950, L101.9900, L500.4050 #### [facility] [address] [place], [address] Neutrophils/100 WBC (Bld) 29.4 % Low 47-70 [facility] Comment on above: Performed By: #### L 506.0250, L501.6710, L503.6030, L504.2610, L5000.0012, L503.6550, L100.0100, L100.9950, L101.9900, L500.4050 #### [facility] [address] [place], [address] Nucleated RBC (Bld) [#/Vol] 0.4 10*3/uL Normal 0-5 [facility] Comment on above: Performed By: #### L 506.0250, L501.6710, L503.6030, L504.2610, L5000.0012, L503.6550, L100.0100, L100.9950, L101.9900, L500.4050 #### [facility] [address] [place], [address] Platelet mean volume (Bld) [Entitic vol] 9.0 fL Normal 6.2-12.0 [facility] Comment on above: Performed By: #### L 506.0250, L501.6710, L503.6030, L504.2610, L5000.0012, L503.6550, L100.0100, L100.9950, L101.9900, L500.4050 #### [facility] [address] [place], [address] Platelets (Bld) [#/Vol] 116 10*3/uL Low 150-450 [facility] Comment on above: Performed By: #### L 506.0250, L501.6710, L503.6030, L504.2610, L5000.0012, L503.6550, L100.0100, L100.9950, L101.9900, L500.4050 #### [facility] [address] [place], [address] RBC (Bld) [#/Vol] 4.14 10*6/uL Low 4.6-6.2 [facility] Comment on above: Performed By: #### L 506.0250, L501.6710, L503.6030, L504.2610, L5000.0012, L503.6550, L100.0100, L100.9950, L101.9900, L500.4050 #### [facility] [address] [place], [address] RDW SD 46.2 fl High 35.1-43.9 [facility] Comment on above: Performed By: #### L 506.0250, L501.6710, L503.6030, L504.2610, L5000.0012, L503.6550, L100.0100, L100.9950, L101.9900, L500.4050 #### [facility] [address] [place], [place], [id number] WBC (Bld) [#/Vol] 5.0 10*3/uL Normal 4.4-11.0 [facility] Comment on above: Performed By: #### L 506.0250, L501.6710, L503.6030, L504.2610, L5000.0012, L503.6550, L100.0100, L100.9950, L101.9900, L500.4050 #### [facility] [address] [place], [address] CRPon 03-13-2024 C-REACTIVE PROT 5.05 mg/L High 0.0-3.0 [facility] Comment on above: Order Comment: 1 N Result Comment: C-Re active Protein (CRP) provides useful information for the diagnosis, therapy and monitoring of inflammatory processes and associated diseases. For the evaluation of Relative Risk for Cardiovascular Disease, a High Sensitivity CRP (HSCRP) should be ordered. Performed By: #### L 506.0250, L501.6710, L503.6030, L504.2610, L5000.0012, L503.6550, L100.0100, L100.9950, L101.9900, L500.4050 #### [facility] [address] [place], [address] Comprehensive Metabolic Prof ilon 03-13-2024 Albumin [Mass/Vol] 3.6 g/dL Normal 3.2-5.0 [facility] Comment on above: Order Comment: 1 N Performed By: #### L 506.0250, L501.6710, L503.6030, L504.2610, L5000.0012, L503.6550, L100.0100, L100.9950, L101.9900, L500.4050 #### [facility] [address] [place], [address] Albumin/Globulin [Mass ratio] 1.0 {ratio} Normal 0.9-2.4 [facility] Comment on above: Order Comment: 1 N Performed By: #### L 506.0250, L501.6710, L503.6030, L504.2610, L5000.0012, L503.6550, L100.0100, L100.9950, L101.9900, L500.4050 #### [facility] [address] [place], [address] ALK P 104 U/L Normal 45-117 [facility] Comment on above: Order Comment: 1 N Performed By: #### L 506.0250, L501.6710, L503.6030, L504.2610, L5000.0012, L503.6550, L100.0100, L100.9950, L101.9900, L500.4050 #### [facility] [address] [place], [place], [id number] ALT [Catalytic activity/Vol] 22 U/L Normal 16-61 [facility] Comment on above: Order Comment: 1 N Performed By: #### L 506.0250, L501.6710, L503.6030, L504.2610, L5000.0012, L503.6550, L100.0100, L100.9950, L101.9900, L500.4050 #### [facility] [address] [place], [address] AST [Catalytic activity/Vol] 13 U/L Low 15-37 [facility] Comment on above: Order Comment: 1 N Performed By: #### L 506.0250, L501.6710, L503.6030, L504.2610, L5000.0012, L503.6550, L100.0100, L100.9950, L101.9900, L500.4050 #### [facility] [address] [place], [address] Bilirubin [Mass/Vol] 0.50 mg/dL Normal 0.20-1.00 [facility] Comment on above: Order Comment: 1 N Result Comment: For patients on eltrombopag therapy, use of Dimension [place] TBIL is not recommended. Performed By: #### L 506.0250, L501.6710, L503.6030, L504.2610, L5000.0012, L503.6550, L100.0100, L100.9950, L101.9900, L500.4050 #### [facility] [address] [place], [address] BUN/CRE 23.3 RATIO High 10-20 [facility] Comment on above: Order Comment: 1 N Performed By: #### L 506.0250, L501.6710, L503.6030, L504.2610, L5000.0012, L503.6550, L100.0100, L100.9950, L101.9900, L500.4050 #### [facility] [address] [place], [address] CA,Total 9.5 mg/dL Normal 8.5-10.1 [facility] Comment on above: Order Comment: 1 N Performed By: #### L 506.0250, L501.6710, L503.6030, L504.2610, L5000.0012, L503.6550, L100.0100, L100.9950, L101.9900, L500.4050 #### [facility] [address] [place], [address] Chloride [Moles/Vol] 107 mmol/L Normal 98-107 [facility] Comment on above: Order Comment: 1 N Performed By: #### L 506.0250, L501.6710, L503.6030, L504.2610, L5000.0012, L503.6550, L100.0100, L100.9950, L101.9900, L500.4050 #### [facility] [address] [place], [place], [phone] (318) CO2 [Moles/Vol] 25.0 mmol/L Normal 21.0-32.0 [facility] Comment on above: Order Comment: 1 N Performed By: #### L 506.0250, L501.6710, L503.6030, L504.2610, L5000.0012, L503.6550, L100.0100, L100.9950, L101.9900, L500.4050 #### [facility] [address] [place], [place], [phone] (853) Creatinine [Mass/Vol] 1.20 mg/dL Normal 0.70-1.30 [facility] Comment on above: Order Comment: 1 N Result Comment: The validity of the calculated GFR GFRAA in patients over 70 years has not been determined. Clinical correlation is essential. Performed By: #### L 506.0250, L501.6710, L503.6030, L504.2610, L5000.0012, L503.6550, L100.0100, L100.9950, L101.9900, L500.4050 #### [facility] [address] [place], [place], [phone] (086) ECRCL 55.89 ml/min Normal [facility] Comment on above: Order Comment: 1 N Performed By: #### L 506.0250, L501.6710, L503.6030, L504.2610, L5000.0012, L503.6550, L100.0100, L100.9950, L101.9900, L500.4050 #### [facility] [address] [place], [address] EST GFR - AA 78 mL/min Normal >60 [facility] Comment on above: Order Comment: 1 N Result Comment: Afri can [facility] GFR Calc Performed By: #### L 506.0250, L501.6710, L503.6030, L504.2610, L5000.0012, L503.6550, L100.0100, L100.9950, L101.9900, L500.4050 #### [facility] [address] [place], [place], [id number] GAP 8 Normal 5-15 [facility] Comment on above: Order Comment: 1 N Performed By: #### L 506.0250, L501.6710, L503.6030, L504.2610, L5000.0012, L503.6550, L100.0100, L100.9950, L101.9900, L500.4050 #### [facility] [address] [place], [address] GFR/1.73 sq M.predicted among non-blacks MDRD (S/P/Bld) [Vol rate/Area] 64 mL/min/{1.73_m2} Normal >60 [facility] Comment on above: Order Comment: 1 N Result Comment: Non- GFR Calc Performed By: #### L 506.0250, L501.6710, L503.6030, L504.2610, L5000.0012, L503.6550, L100.0100, L100.9950, L101.9900, L500.4050 #### [facility] [address] [place], [address] Globulin (S) [Mass/Vol] 3.6 g/dL Normal 2.2-4.2 [facility] Comment on above: Order Comment: 1 N Performed By: #### L 506.0250, L501.6710, L503.6030, L504.2610, L5000.0012, L503.6550, L100.0100, L100.9950, L101.9900, L500.4050 #### [facility] [address] [place], [address] Glucose [Mass/Vol] 92 mg/dL Normal 74-106 [facility] Comment on above: Order Comment: 1 N Performed By: #### L 506.0250, L501.6710, L503.6030, L504.2610, L5000.0012, L503.6550, L100.0100, L100.9950, L101.9900, L500.4050 #### [facility] [address] [place], [address] Potassium [Moles/Vol] 3.5 mmol/L Normal 3.5-5.1 [facility] Comment on above: Order Comment: 1 N Performed By: #### L 506.0250, L501.6710, L503.6030, L504.2610, L5000.0012, L503.6550, L100.0100, L100.9950, L101.9900, L500.4050 #### [facility] [address] [place], [address] Sodium [Moles/Vol] 140 mmol/L Normal 136-145 [facility] Comment on above: Order Comment: 1 N Performed By: #### L 506.0250, L501.6710, L503.6030, L504.2610, L5000.0012, L503.6550, L100.0100, L100.9950, L101.9900, L500.4050 #### [facility] [address] [place], [place], [id number] T PROT 7.2 g/dL Normal 6.4-8.2 [facility] Comment on above: Order Comment: 1 N Performed By: #### L 506.0250, L501.6710, L503.6030, L504.2610, L5000.0012, L503.6550, L100.0100, L100.9950, L101.9900, L500.4050 #### [facility] [address] [place], [address] Urea nitrogen [Mass/Vol] 28 mg/dL High 7-18 [facility] Comment on above: Order Comment: 1 N Performed By: #### L 506.0250, L501.6710, L503.6030, L504.2610, L5000.0012, L503.6550, L100.0100, L100.9950, L101.9900, L500.4050 #### [facility] [address] [place], [address] Erythrocyte Sed Rateon 03-13 SED RATE 16 mm/hr Normal 0-20 [facility] Comment on above: Performed By: #### L 506.0250, L501.6710, L503.6030, L504.2610, L5000.0012, L503.6550, L100.0100, L100.9950, L101.9900, L500.4050 #### [facility] [address] [place], [address] Erythrocyte sedimentation ra teOrdered By: Durga Davis on 03-13-2024 ESR (Bld) [Velocity] 16 mm/h 0-20 [facility] Estimated glomerular filtrat ion rate (GFR) AmericanOrdered By: Durga Davis on 03-13-2024 Estimated GFR (MDRD) Amer 78 mL/min >60 [facility] Comment on above: GFR Calc Ferritinon 03-13-2024 Ferritin [Mass/Vol] 127 ng/mL Normal 26-388 [facility] Comment on above: Order Comment: 1 N Performed By: #### L 506.0250, L501.6710, L503.6030, L504.2610, L5000.0012, L503.6550, L100.0100, L100.9950, L101.9900, L500.4050 #### [facility] [address] [place], [place], [id number] Ferritin measurementOrdered By: Durga Davis on 03-13-2024 Ferritin [Mass/Vol] 127 ng/mL 26-388 [facility] Folates, (Folic Acid)on 02-28 FOLATES 37.40 ng/mL Normal 3.1-55.4 [facility] Comment on above: Order Comment: 1N Performed By: #### L 506.0250, L501.6710, L503.6030, L504.2610, L5000.0012, L503.6550, L100.0100, L100.9950, L101.9900, L500.4050 ####[facility] [address] [place], [address] Folic acid measurementOrdere d By: Durga Davis on 03-13-2024 Folate 37.40 ng/mL 3.1-55.4 [facility] Hemoglobin (Reticulocytes) [ Entitic mass]Ordered By: Durga Davis on 03-13-2024 Reticulocyte Hemoglobin Equivalent 37.2 pg High 30-35 [facility] Immature reticulocyte fracti onOrdered By: Durga Davis on 03-13-2024 Immature Reticulocyte Fraction 21.10 % High 3.00-15.90 [facility] Iron (Unsp spec) [Mass/Mass] Ordered By: Durga Davis on 03-13-2024 Iron [Mass/Vol] 94 ug/dL 65-175 [facility] Iron measurement (mass/mass) Ordered By: Durga Davis on 03-13-2024 Iron (Unsp spec) [Mass/Mass] 94 ug/dL 65-175 [facility] Iron saturation [Mass fracti on]Ordered By: Durga Davis on 03-13-2024 Iron Saturation 27.8 % 15.0-55.0 [facility] Iron+Iron Binding Capacityon 03-13-2024 Iron [Mass/Vol] 94 ug/dL Normal 65-175 [facility] Comment on above: Order Comment: 1 N Performed By: #### L 506.0250, L501.6710, L503.6030, L504.2610, L5000.0012, L503.6550, L100.0100, L100.9950, L101.9900, L500.4050 #### [facility] [address] [place], [address] IRON SATURATION 27.8 Normal 15.0-55.0 [facility] Comment on above: Order Comment: 1 N Performed By: #### L 506.0250, L501.6710, L503.6030, L504.2610, L5000.0012, L503.6550, L100.0100, L100.9950, L101.9900, L500.4050 #### [facility] [address] [place], [address] TIBC 338 ug/dL Normal 250-450 [facility] Comment on above: Order Comment: 1 N Performed By: #### L 506.0250, L501.6710, L503.6030, L504.2610, L5000.0012, L503.6550, L100.0100, L100.9950, L101.9900, L500.4050 #### [facility] [address] [place], [address] LDHon 03-13-2024 LDH 193 U/L Normal 87-241 [facility] Comment on above: Order Comment: 1 N Performed By: #### L 506.0250, L501.6710, L503.6030, L504.2610, L5000.0012, L503.6550, L100.0100, L100.9950, L101.9900, L500.4050 #### [facility] [address] [place], [address] Retic Panelon 03-13-2024 IM RET FRACTION 21.10 High 3.00-15.90 [facility] Comment on above: Performed By: #### L 506.0250, L501.6710, L503.6030, L504.2610, L5000.0012, L503.6550, L100.0100, L100.9950, L101.9900, L500.4050 #### [facility] [address] [place], [address] RET-HE 37.2 pg High 30-35 [facility] Comment on above: Performed By: #### L 506.0250, L501.6710, L503.6030, L504.2610, L5000.0012, L503.6550, L100.0100, L100.9950, L101.9900, L500.4050 #### [facility] [address] [place], [address] Retic Count 2.09 High 0.5-1.5 [facility] Comment on above: Performed By: #### L 506.0250, L501.6710, L503.6030, L504.2610, L5000.0012, L503.6550, L100.0100, L100.9950, L101.9900, L500.4050 #### [facility] [address] [place], [address] Reticulocyte hemoglobin equi valent (RET-He) measurementOrdered By: Durga Davis on 03-13-2024 Hemoglobin (Reticulocytes) [Entitic mass] 37.2 pg High 30-35 [facility] Reticulocytes Auto (Bld) [#/ Vol]Ordered By: Durga Davis on 10-14-2024 Reticulocyte Count 2.09 % High 0.5-1.5 [facility] Reticulocytes/100 RBC (Bld) 2.09 % High 0.5-1.5 [facility] Serum or plasma iron saturat ion measurement (mass fraction)Ordered By: Durga Ryan on 03-13-2024 Iron saturation [Mass fraction] 27.8 % 15.0-55.0 [facility] TIBCOrdered By: Durga Wallace on 03-13-2024 Total Iron Binding Capacity 338 ug/dL 250-450 [facility] Absolute lymphocyte countOrd ered By: [facility] on 09-13-2023 Lymphocytes Auto (Unsp spec) [#/Vol] 2.51 10*3/uL 0.83-4.51 [facility] Automated lymphocyte count a s percentage of total leukocytesOrdered By: [facility] on 09-13-2023 Lymphocytes/100 WBC Auto (Unsp spec) 45.9 % 19-41 [facility] Basophil percentageOrdered B y: Durga Ryan on 09-13-2023 Basophils/100 WBC (Bld) 0.2 % 0-1 [facility] Bilirubin [Mass/Vol] 0.70 mg/dL 0.20-1.00 [facility] Comment on above: For patients on eltr ombopag therapy, use of Dimension [place] TBIL is not recommended. Chloride [Moles/Vol] 105 mmol/L 98-107 [facility] Eosinophils/100 WBC (Bld) 0.9 % 0-5 [facility] Glucose [Mass/Vol] 128 mg/dL 74-106 [facility] Comment on above: Fasting Glucose resu lt greater than or equal to 126 mg/dL suggests DIABETES MELLITUS per A.D.A. criteria. Hemoglobin (Bld) [Mass/Vol] 13.7 g/dL 13.0-16.5 [facility] LDH [Catalytic activity/Vol] 191 U/L 87-241 [facility] Monocytes/100 WBC (Bld) 19.6 % 0-10 [facility] Neutrophils (Bld) [#/Vol] 1.8 10*3/uL 2.0-7.7 [facility] Neutrophils/100 WBC (Bld) 32.7 % 47-70 [facility] Potassium [Moles/Vol] 3.1 mmol/L 3.5-5.1 [facility] Protein [Mass/Vol] 7.4 g/dL 6.4-8.2 [facility] Sodium [Moles/Vol] 140 mmol/L 136-145 [facility] WBC (Bld) [#/Vol] 5.5 10*3/uL 4.4-11.0 [facility] Determination of erythrocyte mean corpuscular volume (MCV)Ordered By: Durga Davis on 09-13-2023 MCV (RBC) [Entitic vol] 94.3 fL 80-94 [facility] Erythrocyte distribution wid th ratioOrdered By: Durga Davis on 09-13-2023 Erythrocyte distribution width (RBC) [Ratio] 13.1 % 11.6-14.6 [facility] Erythrocyte distribution wid th standard deviationOrdered By: Durga Davis on 09-13-2023 Erythrocyte distribution width (RBC) [Entitic vol] 45.0 fL 35.1-43.9 [facility] Hematocrit Auto (Bld) [Volum e fraction]Ordered By: Durga Davis on 09-13-2023 Hematocrit (Bld) [Volume fraction] 38.4 % 40-54 [facility] Immature granulocytes/100 WB C Auto (Bld)Ordered By: Durga Davis on 09-13-2023 Immature granulocytes/100 WBC (Bld) 0.700 % 0.0-0.9 [facility] Comment on above: IG% - Immature Granu locytes (promyelocytes, myelocytes and metamyelocytes) > 1% indicates that a LEFT SHIFT is Present. Laboratory - Chemistry and C hemistry - challengeOrdered By: Durga Davis on 09-13-2023 Albumin/Globulin [Mass ratio] 0.9 {ratio} 0.9-2.4 [facility] ALP [Catalytic activity/Vol] 102 U/L 45-117 [facility] ALT [Catalytic activity/Vol] 22 U/L 16-61 [facility] CO2 [Moles/Vol] 28.0 mmol/L 21.0-32.0 [facility] Cobalamin (Vitamin B12) [Mass/Vol] 1614 pg/mL 211-911 [facility] Globulin (S) [Mass/Vol] 3.8 g/dL 2.2-4.2 [facility] Urea nitrogen/Creatinine [Mass ratio] 16.3 mg/mg 10-20 [facility] Laboratory - Hematology and Cell countsOrdered By: Durga Davis on 09-13-2023 MCH (RBC) [Entitic mass] 33.7 pg 27.0-32.0 [facility] MCHC (RBC) [Mass/Vol] 35.7 g/dL 32-36 [facility] Nucleated RBC/100 WBC (Bld) [Ratio] 0 % 0-5 [facility] Platelet mean volume (Bld) [Entitic vol] 9.4 fL 6.2-12.0 [facility] Platelets (Bld) [#/Vol] 100 10*3/uL 150-450 [facility] No Panel InformationOrdered By: Durga Davis on 09-13-2023 Estimated GFR (MDRD) Amer 62 mL/min >60 [facility] Comment on above: GFR Calc Estimated GFR (MDRD) Non-Af Amer 51 mL/min >60 [facility] Comment on above: Non- GFR Calc RBC Auto (Bld) [#/Vol]Ordere d By: Durga Davis on 09-13-2023 RBC (Bld) [#/Vol] 4.07 10*6/uL 4.6-6.2 [facility] Serum or plasma calcium sterling urement (mass/volume)Ordered By: Durga Davis on 09-13-2023 Calcium [Mass/Vol] 8.7 mg/dL 8.5-10.1 [facility] Serum or plasma creatinine m easurement (mass/volume)Ordered By: Durga Davis on 09-13-2023 Creatinine [Mass/Vol] 1.47 mg/dL 0.70-1.30 [facility] Comment on above: The validity of the calculated GFR & GFRAA in patients over 70 years has not been determined. Clinical correlation is essential. Serum or plasma urea nitroge n measurement (mass/volume)Ordered By: Durga Davis on 09-13-2023 Urea nitrogen [Mass/Vol] 24 mg/dL 7-18 [facility] Thin prep Papanicolaou smear with manual screeningOrdered By: Durga Davis on 09-13-2023 Thin prep Papanicolaou smear with manual screening 3.6 g/dL 3.2-5.0 [facility] Thin prep Papanicolaou smear with manual screening 14 U/L 15-37 [facility] Thin prep Papanicolaou smear with manual screening 7 5-15 [facility] Absolute lymphocyte countOrd ered By: Mohan Tobias on 08-18-2023 Lymphocytes Auto (Unsp spec) [#/Vol] 2.43 10*3/uL 0.83-4.51 [facility] Automated lymphocyte count a s percentage of total leukocytesOrdered By: Mohan Tobias on 08-18-2023 Lymphocytes/100 WBC Auto (Unsp spec) 44.1 % 19-41 [facility] Basophil percentageOrdered B y: Mohan Tobias on 08-18-2023 Basophil percentage 0 SEEN /hpf 0-5 [facility] Basophils/100 WBC (Bld) 0.2 % 0-1 [facility] Bilirubin [Mass/Vol] 0.80 mg/dL 0.20-1.00 [facility] Comment on above: For patients on eltr ombopag therapy, use of Dimension [place] TBIL is not recommended. Chloride [Moles/Vol] 104 mmol/L 98-107 [facility] Cholesterol [Mass/Vol] 167 mg/dL <200 [facility] Comment on above: <200 mg/dL Desirable 200-240 mg/dL Borderline >240 mg/dL High Risk Eosinophils/100 WBC (Bld) 0.5 % 0-5 [facility] Glucose [Mass/Vol] 124 mg/dL 74-106 [facility] Comment on above: Fasting Glucose resu lt from 100 to 125 mg/dL suggests IMPAIRED HOMEOSTASIS per A.D.A. criteria. Hemoglobin (Bld) [Mass/Vol] 14.7 g/dL 13.0-16.5 [facility] Monocytes/100 WBC (Bld) 26.9 % 0-10 [facility] Neutrophils (Bld) [#/Vol] 1.5 10*3/uL 2.0-7.7 [facility] Neutrophils/100 WBC (Bld) 27.4 % 47-70 [facility] Potassium [Moles/Vol] 3.3 mmol/L 3.5-5.1 [facility] Protein [Mass/Vol] 7.1 g/dL 6.4-8.2 [facility] Sodium [Moles/Vol] 140 mmol/L 136-145 [facility] Triglyceride [Mass/Vol] 338 mg/dL <199 [facility] Comment on above: The drugs N-Acetylcy steine and Metamizole may falsely depress this assay.Serum Triglycerides Reference Interval Normal <150 mg/dL Borderline high 150 - 199 mg/dL High 200 - 499 mg/dL Very High > or = 500 mg/dL WBC (Bld) [#/Vol] 5.5 10*3/uL 4.4-11.0 [facility] Bilirubin Test strip Ql (U)O rdered By: Mohan Tobias on 08-18-2023 Bilirubin Ql (U) Negative Negative [facility] Determination of erythrocyte mean corpuscular volume (MCV)Ordered By: Mohan Tobias on 08-18-2023 MCV (RBC) [Entitic vol] 94.8 fL 80-94 [facility] Erythrocyte distribution wid th ratioOrdered By: Mohan Tobias on 08-18-2023 Erythrocyte distribution width (RBC) [Ratio] 13.2 % 11.6-14.6 [facility] Erythrocyte distribution wid th standard deviationOrdered By: Mohan Tobias on 08-18-2023 Erythrocyte distribution width (RBC) [Entitic vol] 45.4 fL 35.1-43.9 [facility] Hematocrit Auto (Bld) [Volum e fraction]Ordered By: Mohan Tobias on 08-18-2023 Hematocrit (Bld) [Volume fraction] 40.5 % 40-54 [facility] Immature granulocytes/100 WB C Auto (Bld)Ordered By: Mohan Tobias on 08-18-2023 Immature granulocytes/100 WBC (Bld) 0.900 % 0.0-0.9 [facility] Comment on above: IG% - Immature Granu locytes (promyelocytes, myelocytes and metamyelocytes) > 1% indicates that a LEFT SHIFT is Present. Ketones Test strip Ql (U)Ord ered By: Mohan Tobias on 08-18-2023 Ketones Ql (U) Negative Negative [facility] Laboratory - Chemistry and C hemistry - challengeOrdered By: Mohan Tobias on 08-18-2023 Albumin/Globulin [Mass ratio] 1.0 {ratio} 0.9-2.4 [facility] ALP [Catalytic activity/Vol] 94 U/L 45-117 [facility] ALT [Catalytic activity/Vol] 21 U/L 16-61 [facility] Cholesterol in HDL [Mass/Vol] 41 mg/dL >40 [facility] Comment on above: The drugs N-Acetylcy steine and Metamizole may falsely depress this assay. Reference Range HDL <40 mg/dL Low HDL Cholesterol HDL >or= 60 mg/dL High HDL Cholesterol Cholesterol in LDL [Mass/Vol] 58 mg/dL 0-130 [facility] CO2 [Moles/Vol] 29.0 mmol/L 21.0-32.0 [facility] Globulin (S) [Mass/Vol] 3.6 g/dL 2.2-4.2 [facility] Magnesium [Mass/Vol] 2.4 mg/dL 1.6-2.6 [facility] Urea nitrogen/Creatinine [Mass ratio] 17.1 mg/mg 10-20 [facility] Laboratory - Hematology and Cell countsOrdered By: Mohan Tobias on 08-18-2023 MCH (RBC) [Entitic mass] 34.4 pg 27.0-32.0 [facility] MCHC (RBC) [Mass/Vol] 36.3 g/dL 32-36 [facility] Nucleated RBC/100 WBC (Bld) [Ratio] 0 % 0-5 [facility] Platelet mean volume (Bld) [Entitic vol] 9.7 fL 6.2-12.0 [facility] Platelets (Bld) [#/Vol] 84 10*3/uL 150-450 [facility] Mucus LM Ql (Urine sed)Order ed By: Mohan Tobias on 08-18-2023 Mucus Ql (Urine sed) 0 SEEN /hpf [facility] Nitrite Test strip Ql (U)Ord ered By: Mohan Tobias on 08-18-2023 Nitrite Ql (U) Negative Negative [facility] No Panel InformationOrdered By: Mohan Tobias on 08-18-2023 Estimated GFR (MDRD) Amer 85 mL/min >60 [facility] Comment on above: GFR Calc Estimated GFR (MDRD) Non-Af Amer 71 mL/min >60 [facility] Comment on above: Non- GFR Calc Urine RBC 0-5 SEEN /hpf 0-5 [facility] VLDL Cholesterol 68 mg/dL 5-40 [facility] Protein Test strip Ql (U)Ord ered By: Mohan Tobias on 08-18-2023 Protein Ql (U) 15 mg/dl Negative [facility] RBC Auto (Bld) [#/Vol]Ordere d By: Mohan Tobias on 08-18-2023 RBC (Bld) [#/Vol] 4.27 10*6/uL 4.6-6.2 [facility] Serum or plasma calcium sterling urement (mass/volume)Ordered By: Mohan Tobias on 08-18-2023 Calcium [Mass/Vol] 9.0 mg/dL 8.5-10.1 [facility] Serum or plasma creatinine m easurement (mass/volume)Ordered By: Mohan Tobias on 08-18-2023 Creatinine [Mass/Vol] 1.11 mg/dL 0.70-1.30 [facility] Comment on above: The validity of the calculated GFR & GFRAA in patients over 70 years has not been determined. Clinical correlation is essential. Serum or plasma thyroid stim ulating hormone (TSH) measurement (units/volume)Ordered By: Mohan Tobias on 08-18-2023 TSH Qn 1.89 uIU/mL 0.358-3.74 [facility] Serum or plasma urea nitroge n measurement (mass/volume)Ordered By: Mohan Tobias on 08-18-2023 Urea nitrogen [Mass/Vol] 19 mg/dL 7-18 [facility] Squamous epithelial cells de tection in urine sediment by light microscopyOrdered By: Mohan Tobias on 08-18-2023 Epithelial cells.squamous LM Ql (Urine sed) 0-5 SEEN /hpf 0-5 [facility] Thin prep Papanicolaou smear with manual screeningOrdered By: Mohan Tobias on 08-18-2023 Thin prep Papanicolaou smear with manual screening 3.5 g/dL 3.2-5.0 [facility] Thin prep Papanicolaou smear with manual screening 15 U/L 15-37 [facility] Thin prep Papanicolaou smear with manual screening 7 5-15 [facility] Urine blood detectionOrdered By: Mohan Tobias on 08-18-2023 RBC Ql (U) 25 /ul Negative [facility] Urine clarityOrdered By: Jesus Tobias on 08-18-2023 Clarity (U) Clear Clear [facility] Urine color determinationOrd ered By: Mohan Tobias on 08-18-2023 Color (U) Yellow Yellow [facility] Urine glucose detectionOrder ed By: Mohan Tobias on 08-18-2023 Glucose Ql (U) Normal mg/dl Normal [facility] Urine leukocyte esterase det ection by dipstickOrdered By: Mohan Tobias on 08-18-2023 Leukocyte esterase Test strip Ql (U) Negative Negative [facility] Urine pHOrdered By: Mohan cheema on 08-18-2023 pH (U) 6.5 [pH] 5.0 - 8.0 [facility] Urine sediment bacteria coun t by microscopy (number/high power field)Ordered By: Mohan Tobias on 08-18-2023 Bacteria LM.HPF (Urine sed) [#/Area] 0 /[HPF] None Seen [facility] Urine specific gravity measu rementOrdered By: Mohan Tobias on 08-18-2023 Specific gravity (U) [Rel density] 1.010 1.002-1.03 0 [facility] Urine urobilinogen measureme ntOrdered By: Mohan Tobias on 08-18-2023 Urobilinogen Ql (U) Normal mg/dl Normal [facility] Whole blood hemoglobin A1c/t otal hemoglobin ratio (mass fraction)Ordered By: Mohan Tobias on 08-18-2023 HbA1c (Bld) [Mass fraction] 6.0 % 3.8-5.6 [facility] Comment on above: Normal < 5.7 % Predi abetic 5.7 - 6.4 % Diabetic >or= 6.5 % Please note range changes. No Panel InformationOrdered By: Mohan Tobias on 04-20-2023 Prostate Specific Antigen Screen 1.89 ng/mL 0.00-4.00 [facility] Comment on above: This test was perfor med using the TPSA assay method for the[employer] chemistry system. Values obtained with differentassay methods cannot be used interchangably.When changing PSA assays in the course of monitoring apatient, additional sequential testing should be carriedout to confirm baseline values. Absolute lymphocyte countOrd ered By: Durga Davis on 02-25-2023 Lymphocytes Auto (Unsp spec) [#/Vol] 2.72 10*3/uL 0.83-4.51 [facility] Basophil percentageOrdered B y: Durga Davis on 02-25-2023 Basophils/100 WBC (Bld) 0.4 % 0-1 [facility] Eosinophils/100 WBC (Bld) 0.6 % 0-5 [facility] Neutrophils (Bld) [#/Vol] 1.6 10*3/uL 2.0-7.7 [facility] Neutrophils/100 WBC (Bld) 29.7 % 47-70 [facility] WBC (Bld) [#/Vol] 5.4 10*3/uL 4.4-11.0 [facility] Blood erythrocytes count (nu mber/volume)Ordered By: Durga Davis on 02-25-2023 RBC (Bld) [#/Vol] 4.19 10*6/uL 4.6-6.2 [facility] Blood hemoglobin measurement (mass/volume)Ordered By: Durga Davis on 02-25-2023 Hemoglobin (Bld) [Mass/Vol] 14.6 g/dL 13.0-16.5 [facility] Blood lymphocytes/100 leukoc ytesOrdered By: Durga Davis on 02-25-2023 Lymphocytes/100 WBC (Bld) 50.8 % 19-41 [facility] Blood monocytes/100 leukocyt esOrdered By: Durga Davis on 02-25-2023 Monocytes/100 WBC (Bld) 17.8 % 0-10 [facility] Blood platelet mean volumeOr dered By: Durga Davis on 02-25-2023 Platelet mean volume (Bld) [Entitic vol] 8.7 fL 6.2-12.0 [facility] Determination of erythrocyte mean corpuscular volume (MCV)Ordered By: Durga Davis on 02-25-2023 MCV (RBC) [Entitic vol] 94.7 fL 80-94 [facility] Hematocrit Auto (Bld) [Volum e fraction]Ordered By: Durga Davis on 02-25-2023 Hematocrit (Bld) [Volume fraction] 39.7 % 40-54 [facility] Laboratory - Hematology and Cell countsOrdered By: Durga Davis on 02-25-2023 Erythrocyte distribution width (RBC) [Entitic vol] 46.5 fL 35.1-43.9 [facility] Erythrocyte distribution width (RBC) [Ratio] 13.3 % 11.6-14.6 [facility] Immature granulocytes/100 WBC (Bld) 0.700 % 0.0-0.9 [facility] Comment on above: IG% - Immature Granu locytes (promyelocytes, myelocytes and metamyelocytes) > 1% indicates that a LEFT SHIFT is Present. MCH (RBC) [Entitic mass] 34.8 pg 27.0-32.0 [facility] Nucleated RBC/100 WBC (Bld) [Ratio] 0 % 0-5 [facility] MCHC Auto (RBC) [Mass/Vol]Or dered By: Durga Davis on 02-25-2023 MCHC (RBC) [Mass/Vol] 36.8 g/dL 32-36 [facility] Platelets bldOrdered By: Jared Davis on 02-25-2023 Platelets (Bld) [#/Vol] 111 10*3/uL 150-450 [facility] Absolute lymphocyte countOrd ered By: Dr. Davis on 09-14-2022 Lymphocytes Auto (Unsp spec) [#/Vol] 2.95 10*3/uL 0.83-4.51 [facility] Basophil percentageOrdered B y: Dr. Davis on 09-14-2022 Basophils/100 WBC (Bld) 0.2 % 0-1 [facility] Bilirubin [Mass/Vol] 0.50 mg/dL 0.20-1.00 [facility] Comment on above: For patients on eltr ombopag therapy, use of Dimension [place] TBIL is not recommended. Chloride [Moles/Vol] 105 mmol/L 98-107 [facility] Eosinophils/100 WBC (Bld) 1.1 % 0-5 [facility] Glucose [Mass/Vol] 106 mg/dL 74-106 [facility] Comment on above: Fasting Glucose resu lt from 100 to 125 mg/dL suggests IMPAIRED HOMEOSTASIS per A.D.A. criteria. LDH [Catalytic activity/Vol] 190 U/L 87-241 [facility] Neutrophils (Bld) [#/Vol] 1.5 10*3/uL 2.0-7.7 [facility] Neutrophils/100 WBC (Bld) 26.6 % 47-70 [facility] Potassium [Moles/Vol] 3.7 mmol/L 3.5-5.1 [facility] Protein [Mass/Vol] 7.7 g/dL 6.4-8.2 [facility] Sodium [Moles/Vol] 136 mmol/L 136-145 [facility] WBC (Bld) [#/Vol] 5.6 10*3/uL 4.4-11.0 [facility] Blood erythrocytes count (nu mber/volume)Ordered By: Dr. Davis on 09-14-2022 RBC (Bld) [#/Vol] 4.40 10*6/uL 4.6-6.2 [facility] Blood hemoglobin measurement (mass/volume)Ordered By: Dr. Davis on 09-14-2022 Hemoglobin (Bld) [Mass/Vol] 14.9 g/dL 13.0-16.5 [facility] Blood lymphocytes/100 leukoc ytesOrdered By: Dr. Davis on 09-14-2022 Lymphocytes/100 WBC (Bld) 52.7 % 19-41 [facility] Blood monocytes/100 leukocyt esOrdered By: Dr. Davis on 09-14-2022 Monocytes/100 WBC (Bld) 18.9 % 0-10 [facility] Blood platelet mean volumeOr dered By: Dr. Davis on 09-14-2022 Platelet mean volume (Bld) [Entitic vol] 8.8 fL 6.2-12.0 [facility] Determination of erythrocyte mean corpuscular volume (MCV)Ordered By: Dr. Davis on 09-14-2022 MCV (RBC) [Entitic vol] 93.0 fL 80-94 [facility] Hematocrit Auto (Bld) [Volum e fraction]Ordered By: Dr. Davis on 09-14-2022 Hematocrit (Bld) [Volume fraction] 40.9 % 40-54 [facility] Laboratory - Chemistry and C hemistry - challengeOrdered By: Dr. Davis on 09-14-2022 ALP [Catalytic activity/Vol] 93 U/L 45-117 [facility] ALT [Catalytic activity/Vol] 22 U/L 16-61 [facility] CO2 [Moles/Vol] 29.0 mmol/L 21.0-32.0 [facility] Globulin (S) [Mass/Vol] 3.9 g/dL 2.2-4.2 [facility] Urea nitrogen/Creatinine [Mass ratio] 17.1 mg/mg 10-20 [facility] Laboratory - Hematology and Cell countsOrdered By: Dr. Davis on 09-14-2022 Erythrocyte distribution width (RBC) [Entitic vol] 44.4 fL 35.1-43.9 [facility] Erythrocyte distribution width (RBC) [Ratio] 13.2 % 11.6-14.6 [facility] Immature granulocytes/100 WBC (Bld) 0.500 % 0.0-0.9 [facility] Comment on above: IG% - Immature Granu locytes (promyelocytes, myelocytes and metamyelocytes) > 1% indicates that a LEFT SHIFT is Present. MCH (RBC) [Entitic mass] 33.9 pg 27.0-32.0 [facility] Nucleated RBC/100 WBC (Bld) [Ratio] 0 % 0-5 [facility] MCHC Auto (RBC) [Mass/Vol]Or dered By: Dr. Davis on 09-14-2022 MCHC (RBC) [Mass/Vol] 36.4 g/dL 32-36 [facility] No Panel InformationOrdered By: Dr. Davis on 09-14-2022 Estimated GFR (MDRD) Amer 72 mL/min >60 [facility] Comment on above: GFR Calc Estimated GFR (MDRD) Non-Af Amer 59 mL/min >60 [facility] Comment on above: Non- GFR Calc Platelets bldOrdered By: Dr. Davis on 09-14-2022 Platelets (Bld) [#/Vol] 116 10*3/uL 150-450 [facility] Serum or plasma albumin sterling urement (mass/volume)Ordered By: Dr. Davis on 09-14-2022 Albumin [Mass/Vol] 3.8 g/dL 3.2-5.0 [facility] Serum or plasma albumin/glob ulin mass ratioOrdered By: Dr. Davis on 09-14-2022 Albumin/Globulin [Mass ratio] 1.0 {ratio} 0.9-2.4 [facility] Serum or plasma calcium sterling urement (mass/volume)Ordered By: Dr. Davis on 09-14-2022 Calcium [Mass/Vol] 9.5 mg/dL 8.5-10.1 [facility] Serum or plasma creatinine m easurement (mass/volume)Ordered By: Dr. Davis on 09-14-2022 Creatinine [Mass/Vol] 1.29 mg/dL 0.70-1.30 [facility] Comment on above: The validity of the calculated GFR & GFRAA in patients over 70 years has not been determined. Clinical correlation is essential. Serum or plasma urea nitroge n measurement (mass/volume)Ordered By: Dr. Davis on 09-14-2022 Urea nitrogen [Mass/Vol] 22 mg/dL 7-18 [facility] Thin prep Papanicolaou smear with manual screeningOrdered By: Dr. Davis on 09-14-2022 Thin prep Papanicolaou smear with manual screening 13 U/L 15-37 [facility] Thin prep Papanicolaou smear with manual screening 2 5-15 [facility] Absolute lymphocyte countOrd ered By: Dr. Tobias on 07-22-2022 Lymphocytes Auto (Unsp spec) [#/Vol] 2.49 10*3/uL 0.83-4.51 [facility] Basophil percentageOrdered B y: Dr. Tobias on 07-22-2022 Basophil percentage 0 SEEN /hpf 0-5 [facility] Basophils/100 WBC (Bld) 0.2 % 0-1 [facility] Bilirubin [Mass/Vol] 0.40 mg/dL 0.20-1.00 [facility] Comment on above: For patients on eltr ombopag therapy, use of Dimension [place] TBIL is not recommended. Chloride [Moles/Vol] 105 mmol/L 98-107 [facility] Cholesterol [Mass/Vol] 184 mg/dL <200 [facility] Comment on above: <200 mg/dL Desirable 200-240 mg/dL Borderline >240 mg/dL High Risk Eosinophils/100 WBC (Bld) 1.9 % 0-5 [facility] Glucose [Mass/Vol] 112 mg/dL 74-106 [facility] Comment on above: Fasting Glucose resu lt from 100 to 125 mg/dL suggests IMPAIRED HOMEOSTASIS per A.D.A. criteria. Neutrophils (Bld) [#/Vol] 2.2 10*3/uL 2.0-7.7 [facility] Neutrophils/100 WBC (Bld) 38.7 % 47-70 [facility] Potassium [Moles/Vol] 3.8 mmol/L 3.5-5.1 [facility] Protein [Mass/Vol] 7.7 g/dL 6.4-8.2 [facility] Sodium [Moles/Vol] 140 mmol/L 136-145 [facility] Triglyceride [Mass/Vol] 417 mg/dL <199 [facility] Comment on above: The drugs N-Acetylcy steine and Metamizole may falsely depress this assay. TRIGLYCERIDE IS GREATER THAN 400 mg/dL. LDL RESULT IS INVALID AND WILL NOT BE REPORTED.Serum Triglycerides Reference Interval Normal <150 mg/dL Borderline high 150 - 199 mg/dL High 200 - 499 mg/dL Very High > or = 500 mg/dL WBC (Bld) [#/Vol] 5.7 10*3/uL 4.4-11.0 [facility] Bilirubin Test strip Ql (U)O rdered By: Dr. Tobias on 07-22-2022 Bilirubin Ql (U) Negative Negative [facility] Blood erythrocytes count (nu mber/volume)Ordered By: Dr. Tobias on 07-22-2022 RBC (Bld) [#/Vol] 4.21 10*6/uL 4.6-6.2 [facility] Blood hemoglobin measurement (mass/volume)Ordered By: Dr. Tobias on 07-22-2022 Hemoglobin (Bld) [Mass/Vol] 14.1 g/dL 13.0-16.5 [facility] Blood lymphocytes/100 leukoc ytesOrdered By: Dr. Tobias on 07-22-2022 Lymphocytes/100 WBC (Bld) 43.4 % 19-41 [facility] Blood monocytes/100 leukocyt esOrdered By: Dr. Tobias on 07-22-2022 Monocytes/100 WBC (Bld) 15.3 % 0-10 [facility] Blood platelet mean volumeOr dered By: Dr. Tobias on 07-22-2022 Platelet mean volume (Bld) [Entitic vol] 9.2 fL 6.2-12.0 [facility] Determination of erythrocyte mean corpuscular volume (MCV)Ordered By: Dr. Tobias on 07-22-2022 MCV (RBC) [Entitic vol] 94.3 fL 80-94 [facility] Hematocrit Auto (Bld) [Volum e fraction]Ordered By: Dr. Tobias on 07-22-2022 Hematocrit (Bld) [Volume fraction] 39.7 % 40-54 [facility] Ketones Test strip Ql (U)Ord ered By: Dr. Tobias on 07-22-2022 Ketones Ql (U) Negative Negative [facility] Laboratory - Chemistry and C hemistry - challengeOrdered By: Dr. Tobias on 07-22-2022 ALP [Catalytic activity/Vol] 100 U/L 45-117 [facility] ALT [Catalytic activity/Vol] 17 U/L 16-61 [facility] CO2 [Moles/Vol] 24.0 mmol/L 21.0-32.0 [facility] Globulin (S) [Mass/Vol] 4.2 g/dL 2.2-4.2 [facility] Urea nitrogen/Creatinine [Mass ratio] 24.8 mg/mg 10-20 [facility] Laboratory - Hematology and Cell countsOrdered By: Dr. Tobias on 07-22-2022 Erythrocyte distribution width (RBC) [Entitic vol] 46.1 fL 35.1-43.9 [facility] Erythrocyte distribution width (RBC) [Ratio] 13.4 % 11.6-14.6 [facility] Immature granulocytes/100 WBC (Bld) 0.500 % 0.0-0.9 [facility] Comment on above: IG% - Immature Granu locytes (promyelocytes, myelocytes and metamyelocytes) > 1% indicates that a LEFT SHIFT is Present. MCH (RBC) [Entitic mass] 33.5 pg 27.0-32.0 [facility] Nucleated RBC/100 WBC (Bld) [Ratio] 0 % 0-5 [facility] MCHC Auto (RBC) [Mass/Vol]Or dered By: Dr. Tobias on 07-22-2022 MCHC (RBC) [Mass/Vol] 35.5 g/dL 32-36 [facility] Mucus LM Ql (Urine sed)Order ed By: Dr. Tobias on 07-22-2022 Mucus Ql (Urine sed) 0 SEEN /hpf [facility] Nitrite Test strip Ql (U)Ord ered By: Dr. Tobias on 07-22-2022 Nitrite Ql (U) Negative Negative [facility] No Panel InformationOrdered By: Dr. Tobias on 07-22-2022 Estimated GFR (MDRD) Amer 84 mL/min >60 [facility] Comment on above: GFR Calc Estimated GFR (MDRD) Non-Af Amer 69 mL/min >60 [facility] Comment on above: Non- GFR Calc Thyroid Stimulating Hormone (TSH) 2.20 uIU/mL 0.358-3.74 [facility] Platelets bldOrdered By: Dr. Tobias on 07-22-2022 Platelets (Bld) [#/Vol] 117 10*3/uL 150-450 [facility] Protein Test strip Ql (U)Ord ered By: Dr. Tobias on 07-22-2022 Protein Ql (U) Negative Negative [facility] Serum or plasma albumin sterling urement (mass/volume)Ordered By: Dr. Tobias on 07-22-2022 Albumin [Mass/Vol] 3.5 g/dL 3.2-5.0 [facility] Serum or plasma albumin/glob ulin mass ratioOrdered By: Dr. Tobias on 07-22-2022 Albumin/Globulin [Mass ratio] 0.8 {ratio} 0.9-2.4 [facility] Serum or plasma calcium sterling urement (mass/volume)Ordered By: Dr. Tobias on 07-22-2022 Calcium [Mass/Vol] 9.4 mg/dL 8.5-10.1 [facility] Serum or plasma cholesterol in HDL measurement (mass/volume)Ordered By: Dr. Tobias on 07-22-2022 Cholesterol in HDL [Mass/Vol] 38 mg/dL >40 [facility] Comment on above: The drugs N-Acetylcy steine and Metamizole may falsely depress this assay. Reference Range HDL <40 mg/dL Low HDL Cholesterol HDL >or= 60 mg/dL High HDL Cholesterol Serum or plasma cholesterol in VLDL measurement (mass/volume)Ordered By: Dr. Tobias on 07-22-2022 Cholesterol in VLDL [Mass/Vol] [facility] Comment on above: Test not performed Serum or plasma creatinine m easurement (mass/volume)Ordered By: Dr. Tobias on 07-22-2022 Creatinine [Mass/Vol] 1.13 mg/dL 0.70-1.30 [facility] Comment on above: The validity of the calculated GFR & GFRAA in patients over 70 years has not been determined. Clinical correlation is essential. Serum or plasma low density lipoprotein (LDL) cholesterol measurement (mass/volume)Ordered By: Dr. Tobias on 07-22-2022 Cholesterol in LDL [Mass/Vol] [facility] Comment on above: Test not performed Serum or plasma urea nitroge n measurement (mass/volume)Ordered By: Dr. Tobias on 07-22-2022 Urea nitrogen [Mass/Vol] 28 mg/dL 7-18 [facility] Squamous epithelial cells de tection in urine sediment by light microscopyOrdered By: Dr. Tobias on 07-22-2022 Epithelial cells.squamous LM Ql (Urine sed) 0 SEEN /hpf 0-5 [facility] Thin prep Papanicolaou smear with manual screeningOrdered By: Dr. Tobias on 07-22-2022 Thin prep Papanicolaou smear with manual screening 11 U/L 15-37 [facility] Thin prep Papanicolaou smear with manual screening 11 5-15 [facility] Urine blood detectionOrdered By: Dr. Tobias on 07-22-2022 RBC Ql (U) 10 /ul Negative [facility] RBC Ql (U) 0 SEEN /hpf 0-5 [facility] Urine clarityOrdered By: Dr. Tobias on 07-22-2022 Clarity (U) Clear Clear [facility] Urine color determinationOrd ered By: Dr. Tobias on 07-22-2022 Color (U) Yellow Yellow [facility] Urine glucose detectionOrder ed By: Dr. Tobias on 07-22-2022 Glucose Ql (U) Normal mg/dl Normal [facility] Urine leukocyte esterase det ection by dipstickOrdered By: Dr. Tobias on 07-22-2022 Leukocyte esterase Test strip Ql (U) Negative Negative [facility] Urine pHOrdered By: Dr. Hammad haley on 07-22-2022 pH (U) 7.0 [pH] 5.0 - 8.0 [facility] Urine sediment bacteria coun t by microscopy (number/high power field)Ordered By: Dr. Tobias on 07-22-2022 Bacteria LM.HPF (Urine sed) [#/Area] 0 /[HPF] None Seen [facility] Urine specific gravity measu rementOrdered By: Dr. Tobias on 07-22-2022 Specific gravity (U) [Rel density] 1.010 1.002-1.03 0 [facility] Urobilinogen Auto test strip Ql (U)Ordered By: Dr. Tobias on 07-22-2022 Urobilinogen Ql (U) Normal mg/dl Normal [facility] Whole blood hemoglobin A1c/t otal hemoglobin ratio (mass fraction)Ordered By: Dr. Tobias on 07-22-2022 HbA1c (Bld) [Mass fraction] 5.9 % 3.8-5.6 [facility] Comment on above: Normal < 5.7 % Predi abetic 5.7 - 6.4 % Diabetic >or= 6.5 % Please note range changes. Influenza virus A and B and SARS-CoV-2 (COVID-19) Ag panel - Upper respiratory specimOrdered By: Dr. Vidal on 04-26-2022 SARS-CoV-2 (COVID-19) RNA YANG+probe Ql (Resp) [facility] Basophil percentageon 2021 Chloride [Moles/Vol] 95 mmol/L 98-107 [facility] Work Phone: Glucose [Mass/Vol] 115 mg/dL 74-106 [facility] Work Phone: Comment on above: Fasting Glucose resu lt from 100 to 125 mg/dL suggests IMPAIRED HOMEOSTASIS per A.D.A. criteria. Potassium [Moles/Vol] 4.4 mmol/L 3.5-5.1 [facility] Work Phone: Sodium [Moles/Vol] 132 mmol/L 136-145 [facility] Work Phone: Laboratory - Chemistry and C hemistry - challengeon 02-03-2022 CO2 [Moles/Vol] 27.0 mmol/L 21.0-32.0 [facility] Work Phone: Urea nitrogen/Creatinine [Mass ratio] 20.3 mg/mg 10-20 [facility] Work Phone: No Panel Informationon 02-03 Estimated GFR (MDRD) Amer 70 mL/min >60 [facility] Work Phone: Comment on above: GFR Calc Estimated GFR (MDRD) Non-Af Amer 58 mL/min >60 [facility] Work Phone: Comment on above: Non- GFR Calc Serum or plasma calcium sterlnig urement (mass/volume)on 02-03-2022 Calcium [Mass/Vol] 9.2 mg/dL 8.5-10.1 [facility] Work Phone: Serum or plasma creatinine m easurement (mass/volume)on 02-03-2022 Creatinine [Mass/Vol] 1.33 mg/dL 0.70-1.30 [facility] Work Phone: Comment on above: The validity of the calculated GFR & GFRAA in patients over 70 years has not been determined. Clinical correlation is essential. Serum or plasma urea nitroge n measurement (mass/volume)on 02-03-2022 Urea nitrogen [Mass/Vol] 27 mg/dL 7-18 [facility] Work Phone: Thin prep Papanicolaou smear with manual screeningon 02-03-2022 Thin prep Papanicolaou smear with manual screening 10 5-15 [facility] Work Phone: Basophil percentageon 2021 Chloride [Moles/Vol] 99 mmol/L 98-107 [facility] Work Phone: Glucose [Mass/Vol] 120 mg/dL 74-106 [facility] Work Phone: Comment on above: Fasting Glucose resu lt from 100 to 125 mg/dL suggests IMPAIRED HOMEOSTASIS per A.D.A. criteria. Potassium [Moles/Vol] 4.3 mmol/L 3.5-5.1 [facility] Work Phone: Sodium [Moles/Vol] 133 mmol/L 136-145 [facility] Work Phone: Laboratory - Chemistry and C hemistry - challengeon 01-01-2022 CO2 [Moles/Vol] 26.0 mmol/L 21.0-32.0 [facility] Work Phone: Urea nitrogen/Creatinine [Mass ratio] 17.5 mg/mg 10-20 [facility] Work Phone: No Panel Informationon 01-01 Estimated GFR (MDRD) Amer 67 mL/min >60 [facility] Work Phone: Comment on above: GFR Calc Estimated GFR (MDRD) Non-Af Amer 56 mL/min >60 [facility] Work Phone: Comment on above: Non- GFR Calc Serum or plasma calcium sterling urement (mass/volume)on 01-01-2022 Calcium [Mass/Vol] 8.8 mg/dL 8.5-10.1 [facility] Work Phone: Serum or plasma creatinine m easurement (mass/volume)on 01-01-2022 Creatinine [Mass/Vol] 1.37 mg/dL 0.70-1.30 [facility] Work Phone: Comment on above: The validity of the calculated GFR & GFRAA in patients over 70 years has not been determined. Clinical correlation is essential. Serum or plasma urea nitroge n measurement (mass/volume)on 01-01-2022 Urea nitrogen [Mass/Vol] 24 mg/dL 7-18 [facility] Work Phone: Thin prep Papanicolaou smear with manual screeningon 01-01-2022 Thin prep Papanicolaou smear with manual screening 8 5-15 [facility] Work Phone: Basophil percentageon 2021 Chloride [Moles/Vol] 104 mmol/L 98-107 [facility] Work Phone: Glucose [Mass/Vol] 113 mg/dL 74-106 [facility] Work Phone: Comment on above: Fasting Glucose resu lt from 100 to 125 mg/dL suggests IMPAIRED HOMEOSTASIS per A.D.A. criteria. Potassium [Moles/Vol] 4.2 mmol/L 3.5-5.1 [facility] Work Phone: Sodium [Moles/Vol] 137 mmol/L 136-145 [facility] Work Phone: Laboratory - Chemistry and C hemistry - challengeon 12-25-2021 CO2 [Moles/Vol] 27.0 mmol/L 21.0-32.0 [facility] Work Phone: Urea nitrogen/Creatinine [Mass ratio] 23.1 mg/mg 10-20 [facility] Work Phone: No Panel Informationon 12-25 Estimated GFR (MDRD) Amer 62 mL/min >60 [facility] Work Phone: Comment on above: GFR Calc Estimated GFR (MDRD) Non-Af Amer 51 mL/min >60 [facility] Work Phone: Comment on above: Non- GFR Calc Serum or plasma calcium sterling urement (mass/volume)on 12-25-2021 Calcium [Mass/Vol] 9.1 mg/dL 8.5-10.1 [facility] Work Phone: Serum or plasma creatinine m easurement (mass/volume)on 12-25-2021 Creatinine [Mass/Vol] 1.47 mg/dL 0.70-1.30 [facility] Work Phone: Comment on above: The validity of the calculated GFR & GFRAA in patients over 70 years has not been determined. Clinical correlation is essential. Serum or plasma urea nitroge n measurement (mass/volume)on 12-25-2021 Urea nitrogen [Mass/Vol] 34 mg/dL 7-18 [facility] Work Phone: Thin prep Papanicolaou smear with manual screeningon 12-25-2021 Thin prep Papanicolaou smear with manual screening 6 5-15 [facility] Work Phone: Absolute lymphocyte counton 12-17-2021 Lymphocytes Auto (Unsp spec) [#/Vol] 2.73 10*3/uL 0.83-4.51 [facility] Work Phone: Basophil percentageon 2021 Basophils/100 WBC (Bld) 0.2 % 0-1 [facility] Work Phone: Bilirubin [Mass/Vol] 0.40 mg/dL 0.20-1.00 [facility] Work Phone: Comment on above: For patients on eltr ombopag therapy, use of Dimension [place] TBIL is not recommended. Chloride [Moles/Vol] 103 mmol/L 98-107 [facility] Work Phone: Cholesterol [Mass/Vol] 133 mg/dL <200 [facility] Work Phone: Comment on above: <200 mg/dL Desirable 200-240 mg/dL Borderline >240 mg/dL High Risk Eosinophils/100 WBC (Bld) 0.8 % 0-5 [facility] Work Phone: Glucose [Mass/Vol] 99 mg/dL 74-106 [facility] Work Phone: Neutrophils (Bld) [#/Vol] 1.8 10*3/uL 2.0-7.7 [facility] Work Phone: Neutrophils/100 WBC (Bld) 34.4 % 47-70 [facility] Work Phone: Potassium [Moles/Vol] 4.1 mmol/L 3.5-5.1 [facility]: Protein [Mass/Vol] 7.5 g/dL 6.4-8.2 [facility] Work Phone: Sodium [Moles/Vol] 135 mmol/L 136-145 [facility] Work Phone: Triglyceride [Mass/Vol] 245 mg/dL <199 [facility] Work Phone: [phone] Comment on above: The drugs N-Acetylcy steine and Metamizole may falsely depress this assay.Serum Triglycerides Reference Interval Normal <150 mg/dL Borderline high 150 - 199 mg/dL High 200 - 499 mg/dL Very High > or = 500 mg/dL WBC (Bld) [#/Vol] 5.3 10*3/uL 4.4-11.0 [facility] Work Phone: Blood erythrocytes count (nu mber/volume)on 12-17-2021 RBC (Bld) [#/Vol] 3.99 10*6/uL 4.6-6.2 [facility] Work Phone: Blood hemoglobin measurement (mass/volume)on 12-17-2021 Hemoglobin (Bld) [Mass/Vol] 13.7 g/dL 13.0-16.5 [facility] Work Phone: Blood lymphocytes/100 leukoc yteson 12-17-2021 Lymphocytes/100 WBC (Bld) 51.7 % 19-41 [facility] Work Phone: Blood monocytes/100 leukocyt eson 12-17-2021 Monocytes/100 WBC (Bld) 12.3 % 0-10 [facility] Work Phone: Blood platelet mean volumeon 12-17-2021 Platelet mean volume (Bld) [Entitic vol] 9.7 fL 6.2-12.0 [facility] Work Phone: Determination of erythrocyte mean corpuscular volume (MCV)on 12-17-2021 MCV (RBC) [Entitic vol] 95.5 fL 80-94 [facility] Work Phone: [phone] Hematocrit Auto (Bld) [Volum e fraction]on 12-17-2021 Hematocrit (Bld) [Volume fraction] 38.1 % 40-54 [facility] Work Phone: [phone] Laboratory - Chemistry and C hemistry - challengeon 12-17-2021 ALP [Catalytic activity/Vol] 78 U/L 45-117 [facility] Work Phone: ALT [Catalytic activity/Vol] 27 U/L 16-61 [facility] Work Phone: CO2 [Moles/Vol] 24.0 mmol/L 21.0-32.0 [facility] Work Phone: [phone] Globulin (S) [Mass/Vol] 3.7 g/dL 2.2-4.2 [facility] Work Phone: [phone] Urea nitrogen/Creatinine [Mass ratio] 28.0 mg/mg -20 [facility] Work Phone: [phone] Laboratory - Hematology and Cell countson 12-17-2021 Erythrocyte distribution width (RBC) [Entitic vol] 42.0 fL 35.1-43.9 [facility] Work Phone: [phone] Erythrocyte distribution width (RBC) [Ratio] 12.0 % 11.6-14.6 [facility] Work Phone: [phone] Immature granulocytes/100 WBC (Bld) 0.600 % 0.0-0.9 [facility] Work Phone: [phone] Comment on above: IG% - Immature Granu locytes (promyelocytes, myelocytes and metamyelocytes) > 1% indicates that a LEFT SHIFT is Present. MCH (RBC) [Entitic mass] 34.3 pg 27.0-32.0 [facility] Work Phone: [phone] Nucleated RBC/100 WBC (Bld) [Ratio] 0 % 0-5 [facility] Work Phone: MCHC Auto (RBC) [Mass/Vol]on 12-17-2021 MCHC (RBC) [Mass/Vol] 36.0 g/dL 32-36 [facility] Work Phone: No Panel Informationon 12-17 Estimated GFR (MDRD) Amer 70 mL/min >60 [facility] Work Phone: Comment on above: GFR Calc Estimated GFR (MDRD) Non-Af Amer 58 mL/min >60 [facility] Work Phone: Comment on above: Non- GFR Calc Platelets bldon 12-17-2021 Platelets (Bld) [#/Vol] 104 10*3/uL 150-450 [facility] Work Phone: Serum or plasma albumin sterling urement (mass/volume)on 12-17-2021 Albumin [Mass/Vol] 3.8 g/dL 3.2-5.0 [facility] Work Phone: Serum or plasma albumin/glob ulin mass ratioon 12-17-2021 Albumin/Globulin [Mass ratio] 1.0 {ratio} 0.9-2.4 [facility] Work Phone: Serum or plasma calcium sterling urement (mass/volume)on 12-17-2021 Calcium [Mass/Vol] 9.2 mg/dL 8.5-10.1 [facility] Work Phone: Serum or plasma cholesterol in HDL measurement (mass/volume)on 12-17-2021 Cholesterol in HDL [Mass/Vol] 42 mg/dL >40 [facility] Work Phone: Comment on above: The drugs N-Acetylcy steine and Metamizole may falsely depress this assay. Reference Range HDL <40 mg/dL Low HDL Cholesterol HDL >or= 60 mg/dL High HDL Cholesterol Serum or plasma cholesterol in VLDL measurement (mass/volume)on 12-17-2021 Cholesterol in VLDL [Mass/Vol] 49 mg/dL 5-40 [facility] Work Phone: Serum or plasma creatinine m easurement (mass/volume)on 12-17-2021 Creatinine [Mass/Vol] 1.32 mg/dL 0.70-1.30 [facility] Work Phone: Comment on above: The validity of the calculated GFR & GFRAA in patients over 70 years has not been determined. Clinical correlation is essential. Serum or plasma low density lipoprotein (LDL) cholesterol measurement (mass/volume)on 12-17-2021 Cholesterol in LDL [Mass/Vol] 42 mg/dL 0-130 [facility] Work Phone: Serum or plasma urea nitroge n measurement (mass/volume)on 12-17-2021 Urea nitrogen [Mass/Vol] 37 mg/dL 7-18 [facility] Work Phone: Thin prep Papanicolaou smear with manual screeningon 12-17-2021 Thin prep Papanicolaou smear with manual screening 12 U/L 15-37 [facility] Work Phone: Thin prep Papanicolaou smear with manual screening 8 5-15 [facility] Work Phone: Basophil percentageon 2021 Chloride [Moles/Vol] 104 mmol/L 98-107 [facility] Work Phone: Glucose [Mass/Vol] 150 mg/dL 74-106 [facility] Work Phone: Comment on above: Fasting Glucose resu lt greater than or equal to 126 mg/dL suggests DIABETES MELLITUS per A.D.A. criteria. Potassium [Moles/Vol] 3.8 mmol/L 3.5-5.1 [facility] Work Phone: Sodium [Moles/Vol] 138 mmol/L 136-145 [facility] Work Phone: Laboratory - Chemistry and C hemistry - challengeon 09-19-2021 CO2 [Moles/Vol] 26.0 mmol/L 21.0-32.0 [facility] Work Phone: Urea nitrogen/Creatinine [Mass ratio] 21.2 mg/mg 10-20 [facility] Work Phone: No Panel Informationon 09-19 Estimated GFR (MDRD) Amer 84 mL/min >60 [facility] Work Phone: Comment on above: GFR Calc Estimated GFR (MDRD) Non-Af Amer 69 mL/min >60 [facility] Work Phone: Comment on above: Non- GFR Calc Serum or plasma calcium sterling urement (mass/volume)on 09-19-2021 Calcium [Mass/Vol] 9.2 mg/dL 8.5-10.1 [facility] Work Phone: Serum or plasma creatinine m easurement (mass/volume)on 09-19-2021 Creatinine [Mass/Vol] 1.13 mg/dL 0.70-1.30 [facility] Work Phone: Comment on above: The validity of the calculated GFR & GFRAA in patients over 70 years has not been determined. Clinical correlation is essential. Serum or plasma urea nitroge n measurement (mass/volume)on 09-19-2021 Urea nitrogen [Mass/Vol] 24 mg/dL 7-18 [facility] Work Phone: Thin prep Papanicolaou smear with manual screeningon 09-19-2021 Thin prep Papanicolaou smear with manual screening 8 5-15 [facility] Work Phone: Basophil percentageon 2021 Potassium [Moles/Vol] 4.0 mmol/L 3.5-5.1 [facility] Work Phone: Absolute lymphocyte counton 09-08-2021 Lymphocytes Auto (Unsp spec) [#/Vol] 2.79 10*3/uL 0.83-4.51 [facility] Work Phone: Basophil percentageon 2021 Basophils/100 WBC (Bld) 0.2 % 0-1 [facility] Work Phone: Bilirubin [Mass/Vol] 0.60 mg/dL 0.20-1.00 [facility] Work Phone: [phone] Comment on above: For patients on eltr ombopag therapy, use of Dimension [place] TBIL is not recommended. Chloride [Moles/Vol] 104 mmol/L 98-107 [facility] Work Phone: Eosinophils/100 WBC (Bld) 0.6 % 0-5 [facility] Work Phone: Glucose [Mass/Vol] 104 mg/dL 74-106 [facility] Work Phone: Comment on above: Fasting Glucose resu lt from 100 to 125 mg/dL suggests IMPAIRED HOMEOSTASIS per A.D.A. criteria. Neutrophils (Bld) [#/Vol] 1.9 10*3/uL 2.0-7.7 [facility] Work Phone: [phone] Neutrophils/100 WBC (Bld) 37.0 % 47-70 [facility] Work Phone: Potassium [Moles/Vol] 4.0 mmol/L 3.5-5.1 [facility] Work Phone: Protein [Mass/Vol] 7.4 g/dL 6.4-8.2 [facility] Work Phone: Sodium [Moles/Vol] 136 mmol/L 136-145 [facility] Work Phone: WBC (Bld) [#/Vol] 5.2 10*3/uL 4.4-11.0 [facility] Work Phone: Blood erythrocytes count (nu mber/volume)on 09-08-2021 RBC (Bld) [#/Vol] 4.36 10*6/uL 4.6-6.2 [facility] Work Phone: Blood hemoglobin measurement (mass/volume)on 09-08-2021 Hemoglobin (Bld) [Mass/Vol] 15.2 g/dL 13.0-16.5 [facility] Work Phone: Blood lymphocytes/100 leukoc yteson 09-08-2021 Lymphocytes/100 WBC (Bld) 53.4 % 19-41 [facility] Work Phone: Blood monocytes/100 leukocyt eson 09-08-2021 Monocytes/100 WBC (Bld) 8.6 % 0-10 [facility] Work Phone: Blood platelet mean volumeon 09-08-2021 Platelet mean volume (Bld) [Entitic vol] 9.3 fL 6.2-12.0 [facility] Work Phone: Determination of erythrocyte mean corpuscular volume (MCV)on 09-08-2021 MCV (RBC) [Entitic vol] 93.6 fL 80-94 [facility] Work Phone: Hematocrit Auto (Bld) [Volum e fraction]on 09-08-2021 Hematocrit (Bld) [Volume fraction] 40.8 % 40-54 [facility] Work Phone: [phone] Iron measurement (mass/mass) on 09-08-2021 Iron (Unsp spec) [Mass/Mass] 134 ug/dL 65-175 [facility] Laboratory - Chemistry and C hemistry - challengeon 09-08-2021 ALP [Catalytic activity/Vol] 92 U/L 45-117 [facility] Work Phone: ALT [Catalytic activity/Vol] 24 U/L 16-61 [facility] Work Phone: CO2 [Moles/Vol] 26.0 mmol/L 21.0-32.0 [facility] Work Phone: [phone] Cobalamin (Vitamin B12) [Mass/Vol] 1070 pg/mL 211-911 [facility] Globulin (S) [Mass/Vol] 3.6 g/dL 2.2-4.2 [facility] Work Phone: Urea nitrogen/Creatinine [Mass ratio] 19.0 mg/mg 10-20 [facility] Work Phone: Laboratory - Hematology and Cell countson 09-08-2021 Erythrocyte distribution width (RBC) [Entitic vol] 41.2 fL 35.1-43.9 [facility] Work Phone: Erythrocyte distribution width (RBC) [Ratio] 11.9 % 11.6-14.6 [facility] Work Phone: Immature granulocytes/100 WBC (Bld) 0.200 % 0.0-0.9 [facility] Work Phone: Comment on above: IG% - Immature Granu locytes (promyelocytes, myelocytes and metamyelocytes) > 1% indicates that a LEFT SHIFT is Present. MCH (RBC) [Entitic mass] 34.9 pg 27.0-32.0 [facility] Work Phone: Nucleated RBC/100 WBC (Bld) [Ratio] 0 % 0-5 [facility] Work Phone: MCHC Auto (RBC) [Mass/Vol]on 09-08-2021 MCHC (RBC) [Mass/Vol] 37.3 g/dL 32-36 [facility] Work Phone: No Panel Informationon 09-08 Estimated GFR (MDRD) Amer 67 mL/min >60 [facility] Work Phone: Comment on above: GFR Calc Estimated GFR (MDRD) Non-Af Amer 56 mL/min >60 [facility] Work Phone: Comment on above: Non- GFR Calc Total Iron Binding Capacity 352 ug/dL 250-450 [facility] Platelets bldon 09-08-2021 Platelets (Bld) [#/Vol] 114 10*3/uL 150-450 [facility] Work Phone: Serum or plasma albumin sterling urement (mass/volume)on 09-08-2021 Albumin [Mass/Vol] 3.8 g/dL 3.2-5.0 [facility] Work Phone: Serum or plasma albumin/glob ulin mass ratioon 09-08-2021 Albumin/Globulin [Mass ratio] 1.1 {ratio} 0.9-2.4 [facility] Work Phone: Serum or plasma calcium sterling urement (mass/volume)on 09-08-2021 Calcium [Mass/Vol] 9.3 mg/dL 8.5-10.1 [facility] Work Phone: Serum or plasma creatinine m easurement (mass/volume)on 09-08-2021 Creatinine [Mass/Vol] 1.37 mg/dL 0.70-1.30 [facility] Work Phone: Comment on above: The validity of the calculated GFR & GFRAA in patients over 70 years has not been determined. Clinical correlation is essential. Serum or plasma ferritin wes surement (mass/volume)on 09-08-2021 Ferritin [Mass/Vol] 166 ng/mL 26-388 [facility] Serum or plasma folate measu rement (mass/volume)on 09-08-2021 Folate [Mass/Vol] 44.00 ng/mL 3.1-55.4 [facility] Serum or plasma iron saturat ion measurement (mass fraction)on 09-08-2021 Iron saturation [Mass fraction] 38.1 % 15.0-55.0 [facility] Serum or plasma urea nitroge n measurement (mass/volume)on 09-08-2021 Urea nitrogen [Mass/Vol] 26 mg/dL 7-18 [facility] Work Phone: Thin prep Papanicolaou smear with manual screeningon 09-08-2021 Thin prep Papanicolaou smear with manual screening 14 U/L 15-37 [facility] Work Phone: Thin prep Papanicolaou smear with manual screening 6 5-15 [facility] Work Phone: Thin prep Papanicolaou smear with manual screening 181 U/L 87-241 [facility] Work Phone: Basophil percentageon 2021 Chloride [Moles/Vol] 106 mmol/L 98-107 [facility] Work Phone: Glucose [Mass/Vol] 242 mg/dL 74-106 [facility] Work Phone: Comment on above: Glucose result great er than or equal to 200 mg/dLsuggests DIABETES MELLITUS per A.D.A. criteria. Potassium [Moles/Vol] 4.3 mmol/L 3.5-5.1 [facility] [facility] Work Phone: Sodium [Moles/Vol] 136 mmol/L 136-145 [facility] Work Phone: Laboratory - Chemistry and C hemistry - challengeon 09-05-2021 CO2 [Moles/Vol] 24.0 mmol/L 21.0-32.0 [facility] Work Phone: Urea nitrogen/Creatinine [Mass ratio] 15.0 mg/mg 10-20 [facility] Work Phone: No Panel Informationon 09-05 Estimated GFR (MDRD) Amer 78 mL/min >60 [facility] Work Phone: Comment on above: GFR Calc Estimated GFR (MDRD) Non-Af Amer 65 mL/min >60 [facility] Work Phone: Comment on above: Non- GFR Calc Serum or plasma calcium sterling urement (mass/volume)on 09-05-2021 Calcium [Mass/Vol] 8.6 mg/dL 8.5-10.1 [facility] Work Phone: Serum or plasma creatinine m easurement (mass/volume)on 09-05-2021 Creatinine [Mass/Vol] 1.20 mg/dL 0.70-1.30 [facility] Work Phone: Comment on above: The validity of the calculated GFR & GFRAA in patients over 70 years has not been determined. Clinical correlation is essential. Serum or plasma urea nitroge n measurement (mass/volume)on 09-05-2021 Urea nitrogen [Mass/Vol] 18 mg/dL 7-18 [facility] Work Phone: Thin prep Papanicolaou smear with manual screeningon 09-05-2021 Thin prep Papanicolaou smear with manual screening 6 5-15 [facility] Work Phone: Absolute lymphocyte counton 08-22-2021 Lymphocytes Auto (Unsp spec) [#/Vol] 2.50 10*3/uL 0.83-4.51 [facility] Work Phone: [phone] Basophil percentageon 2021 Basophils/100 WBC (Bld) 0.2 % 0-1 [facility] Work Phone: [phone] Bilirubin [Mass/Vol] 0.70 mg/dL 0.20-1.00 [facility] Work Phone: [phone] Comment on above: For patients on eltr ombopag therapy, use of Dimension [place] TBIL is not recommended. Chloride [Moles/Vol] 107 mmol/L 98-107 [facility] Work Phone: [phone] Cholesterol [Mass/Vol] 191 mg/dL <200 [facility] Work Phone: [phone] Comment on above: <200 mg/dL Desirable 200-240 mg/dL Borderline >240 mg/dL High Risk Eosinophils/100 WBC (Bld) 0.6 % 0-5 [facility] Work Phone: [phone] Glucose [Mass/Vol] 97 mg/dL 74-106 [facility] Work Phone: Neutrophils (Bld) [#/Vol] 1.7 10*3/uL 2.0-7.7 [facility] Work Phone: Neutrophils/100 WBC (Bld) 35.5 % 47-70 [facility] Work Phone: [phone] Potassium [Moles/Vol] 3.0 mmol/L 3.5-5.1 [facility] Work Phone: Protein [Mass/Vol] 7.5 g/dL 6.4-8.2 [facility] Work Phone: [phone] Sodium [Moles/Vol] 140 mmol/L 136-145 [facility] Work Phone: Triglyceride [Mass/Vol] 286 mg/dL [facility] Work Phone: [phone] Comment on above: The drugs N-Acetylcy steine and Metamizole may falsely depress this assay.Serum Triglycerides Reference Interval Normal <150 mg/dL Borderline high 150 - 199 mg/dL High 200 - 499 mg/dL Very High > or = 500 mg/dL WBC (Bld) [#/Vol] 4.8 10*3/uL 4.4-11.0 [facility] Work Phone: Blood erythrocytes count (nu mber/volume)on 08-22-2021 RBC (Bld) [#/Vol] 4.25 10*6/uL 4.6-6.2 [facility] Work Phone: Blood hemoglobin measurement (mass/volume)on 08-22-2021 Hemoglobin (Bld) [Mass/Vol] 14.6 g/dL 13.0-16.5 [facility] Work Phone: Blood lymphocytes/100 leukoc yteson 08-22-2021 Lymphocytes/100 WBC (Bld) 52.4 % 19-41 [facility] Work Phone: Blood manual differential co mment interpretation (narrative result)on 08-22-2021 Manual differential comment Matheus (Bld) [Interp] SCANNED [facility] Work Phone: Comment on above: THROMBOCYTOPENIA NOT ED Blood monocytes/100 leukocyt eson 08-22-2021 Monocytes/100 WBC (Bld) 10.7 % 0-10 [facility] Work Phone: Blood platelet mean volumeon 08-22-2021 Platelet mean volume (Bld) [Entitic vol] 9.6 fL 6.2-12.0 [facility] Work Phone: Determination of erythrocyte mean corpuscular volume (MCV)on 08-22-2021 MCV (RBC) [Entitic vol] 93.9 fL 80-94 [facility] Work Phone: Hematocrit Auto (Bld) [Volum e fraction]on 08-22-2021 Hematocrit (Bld) [Volume fraction] 39.9 % 40-54 [facility] Work Phone: Laboratory - Chemistry and C hemistry - challengeon 08-22-2021 ALP [Catalytic activity/Vol] 97 U/L 45-117 [facility] Work Phone: [phone] ALT [Catalytic activity/Vol] 20 U/L 16-61 [facility] Work Phone: CO2 [Moles/Vol] 27.0 mmol/L 21.0-32.0 [facility] Work Phone: Free T4 [Mass/Vol] 1.17 ng/dL 0.76-1.46 [facility] Work Phone: [phone] Globulin (S) [Mass/Vol] 3.6 g/dL 2.2-4.2 [facility]: Magnesium [Mass/Vol] 2.2 mg/dL 1.6-2.6 [facility] Work Phone: [phone] Urea nitrogen/Creatinine [Mass ratio] 23.1 mg/mg 10-20 [facility] Work Phone: Laboratory - Hematology and Cell countson 08-22-2021 Erythrocyte distribution width (RBC) [Entitic vol] 44.0 fL 35.1-43.9 [facility] Work Phone: [phone] Erythrocyte distribution width (RBC) [Ratio] 12.8 % 11.6-14.6 [facility] Work Phone: [phone] Immature granulocytes/100 WBC (Bld) 0.600 % 0.0-0.9 [facility] Work Phone: [phone] Comment on above: IG% - Immature Granu locytes (promyelocytes, myelocytes and metamyelocytes) > 1% indicates that a LEFT SHIFT is Present. MCH (RBC) [Entitic mass] 34.4 pg 27.0-32.0 [facility] Work Phone: Nucleated RBC/100 WBC (Bld) [Ratio] 0 % 0-5 [facility] Work Phone: [phone] MCHC Auto (RBC) [Mass/Vol]on 08-22-2021 MCHC (RBC) [Mass/Vol] 36.6 g/dL 32-36 [facility] Work Phone: [phone] No Panel Informationon 08-22 Estimated GFR (MDRD) Amer 89 mL/min >60 [facility] Work Phone: Comment on above: GFR Calc Estimated GFR (MDRD) Non-Af Amer 73 mL/min >60 [facility] Work Phone: Comment on above: Non- GFR Calc Thyroid Stimulating Hormone (TSH) 2.74 uIU/mL 0.358-3.74 [facility] Work Phone: Platelets bldon 08-22-2021 Platelets (Bld) [#/Vol] 91 10*3/uL 150-450 [facility] Work Phone: Serum or plasma albumin sterling urement (mass/volume)on 08-22-2021 Albumin [Mass/Vol] 3.9 g/dL 3.2-5.0 [facility] Work Phone: Serum or plasma albumin/glob ulin mass ratioon 08-22-2021 Albumin/Globulin [Mass ratio] 1.1 {ratio} 0.9-2.4 [facility] Work Phone: Serum or plasma calcium sterling urement (mass/volume)on 08-22-2021 Calcium [Mass/Vol] 9.4 mg/dL 8.5-10.1 [facility] Work Phone: Serum or plasma cholesterol in HDL measurement (mass/volume)on 08-22-2021 Cholesterol in HDL [Mass/Vol] 40 mg/dL [facility] Work Phone: Comment on above: The drugs N-Acetylcy steine and Metamizole may falsely depress this assay. Reference Range HDL <40 mg/dL Low HDL Cholesterol HDL >or= 60 mg/dL High HDL Cholesterol Serum or plasma cholesterol in VLDL measurement (mass/volume)on 08-22-2021 Cholesterol in VLDL [Mass/Vol] 57 mg/dL 5-40 [facility] Work Phone: Serum or plasma creatinine m easurement (mass/volume)on 08-22-2021 Creatinine [Mass/Vol] 1.08 mg/dL 0.70-1.30 [facility] Work Phone: Comment on above: The validity of the calculated GFR & GFRAA in patients over 70 years has not been determined. Clinical correlation is essential. Serum or plasma low density lipoprotein (LDL) cholesterol measurement (mass/volume)on 08-22-2021 Cholesterol in LDL [Mass/Vol] 94 mg/dL 0-130 [facility] Work Phone: Serum or plasma urea nitroge n measurement (mass/volume)on 08-22-2021 Urea nitrogen [Mass/Vol] 25 mg/dL 7-18 [facility] Work Phone: Thin prep Papanicolaou smear with manual screeningon 08-22-2021 Thin prep Papanicolaou smear with manual screening 15 U/L 15-37 [facility] Work Phone: Thin prep Papanicolaou smear with manual screening 6 5-15 [facility] Work Phone: Addendum Documenton 10-17-19 21 Serum Immunofixation Comments Comment . [facility] Comment on above: Protein electrophore sis scan will follow via computer,mail, or manager engagement delivery. Albumin Elph [Mass/Vol]on Albumin [Mass/Vol] 3.7 g/dL 2.9-4.4 [facility] Alpha 1 globulin Elph [Mass/ Vol]on 10-16-2020 Pgvgz-5-Hyehxvytl (JUANI) 0.2 g/dL 0.0-0.4 [facility] Jcgpy-3-Beurvzayo (JUANI) 0.5 g/dL 0.4-1.0 [facility] Beta globulin Elph [Mass/Vol ]on 10-16-2020 Beta-Globulins (JUANI) 1.3 g/dL 0.7-1.3 [facility] Erythrocyte sedimentation ra gogo 10-16-2020 ESR (Bld) [Velocity] 7 mm/h 0-20 [facility] Gamma globulin Elph [Mass/Vo l]on 10-16-2020 Gamma Globulins (JUANI) 1.1 g/dL 0.4-1.8 [facility] [employer] mix RAST testo n 10-16-2020 Albumin/Globulin (JUANI) 1.2 0.7-1.7 [facility] IgA [Mass/Vol]on 10-16-2020 Immunoglobulin A 230 mg/dL 61-437 [facility] IgG [Mass/Vol]on 10-16-2020 Immunoglobulin G 1089 mg/dL [phone] [facility] IgM [Mass/Vol]on 10-16-2020 Immunoglobulin M 122 mg/dL 20-172 [facility] Immunoglobulin light chains. kappa [Mass/Vol]on 10-16-2020 Free [place] Light Chains, Quant 15.6 mg/L 3.3-19.4 [facility] Immunoglobulin light chains. kappa/Immunoglobulin light chains.lambda (S) [Mass ratio]on 10-16-2020 Free [place]/Lambda Light Chain Ratio 0.66 0.26-1.65 [facility] Interpretation IEP [Interp]o n 10-16-2020 Immunofixation Screen Comment . [facility] Comment on above: No monoclonality det ected. Interpretation of serum or p lasma protein pattern by immunofixation (narrative resulton 10-16-2020 Protein Fractions Immunofixation Matheus [Interp] See comment [facility] Comment on above: NOT OBSERVED Laboratory - Chemistry and C hemistry - challengeon 10-16-2020 Transferrin [Mass/Vol] 300 mg/dL 177-329 [facility] Comment on above: Performed at: [address] Director: Germán Rizo PhD, Phone: [phone] No Panel Informationon 10-16 Addendum Document Comment . [facility] Comment on above: Protein electrophore sis scan will follow via computer,mail, or manager engagement delivery. Free [place] Light Chains, Quant 23.6 mg/L 5.7-26.3 [facility] Protein Fractions Immunofixa tion Matheus [Interp]on 10-16-2020 M-[place] (JUANI) See comment [facility] Comment on above: NOT OBSERVED Serum oncls-7-czaudoem measu rement by electrophoresison 10-16-2020 Alpha 1 globulin Elph [Mass/Vol] 0.2 g/dL 0.0-0.4 [facility] Alpha 1 globulin Elph [Mass/Vol] 0.5 g/dL 0.4-1.0 [facility] Serum immunoglobulin kappa l ight chains/immunoglobulin lambda light chains mass ratioon 10-16-2020 Immunoglobulin light chains.kappa/Immunoglob ulin light chains.lambda (S) [Mass ratio] 0.66 0.26-1.65 [facility] Serum or plasma IgA measurem ent (mass/volume)on 10-16-2020 IgA [Mass/Vol] 230 mg/dL 61-437 [facility] Serum or plasma IgG measurem ent (mass/volume)on 10-16-2020 IgG [Mass/Vol] 1089 mg/dL [phone] [facility] Serum or plasma IgM measurem ent (mass/volume)on 10-16-2020 IgM [Mass/Vol] 122 mg/dL 20-172 [facility] Serum or plasma beta globuli n measurement by electrophoresis (mass/volume)on 10-16-2020 Beta globulin Elph [Mass/Vol] 1.3 g/dL 0.7-1.3 [facility] Serum or plasma gamma globul in measurement by electrophoresis (mass/volume)on 10-16-2020 Gamma globulin Elph [Mass/Vol] 1.1 g/dL 0.4-1.8 [facility] Serum or plasma immunoelectr ophoresis interpretation (nominal result)on 10-16-2020 Interpretation IEP [Interp] Comment . [facility] Comment on above: No monoclonality det ected. Serum or plasma immunoglobul in kappa light chains measurement (mass/volume)on 10-16-2020 Immunoglobulin light chains.kappa [Mass/Vol] 15.6 mg/L 3.3-19.4 [facility] Thin prep Papanicolaou smear with manual screeningon 10-16-2020 Thin prep Papanicolaou smear with manual screening 1.2 0.7-1.7 [facility] Total protein bloodon 2020 Protein [Mass/Vol] 6.8 g/dL 6.0-8.5 [facility] No Panel Information SARS-CoV-2 & FLU Antigen (Rapid) [facility] Work Phone: Vital Signs Date Time Vital Sign Value Performing Clinician Faci lity 09-11-2024 13:36-0400 Body height 160.[address] Mohan Tobias MD Work Phone: [facility] 09-11-2024 13:36-0400 Body mass index (BMI) [Ratio] 30.1 kg/m2 Dr. Mohan Tobias MD Work Phone: [facility] 09-11-2024 13:36-0400 Body temperature 98.5 [degF] Dr. Mohan Tboias MD Work Phone: [facility] 09-11-2024 13:36-0400 Body weight 77.[address] Mohan Tobias MD Work Phone: [phone] [place] [address] 09-11-2024 13:36-0400 Diastolic blood pressure 83 mm[Hg] Dr. Mohan Tobias MD Work Phone: [phone] [place] [address] 09-11-2024 13:36-0400 Heart rate 57 /min Dr. Mohan Tobias MD Work Phone: [facility] 09-11-2024 13:36-0400 Respiratory rate 18 /min Dr. Mohan Tobias MD Work Phone: [facility] 09-11-2024 13:36-0400 SaO2% (BldA) [Mass fraction] 96 % Dr. Mohan Tobias MD Work Phone: [facility] 09-11-2024 13:36-0400 Systolic blood pressure 152 mm[Hg] Dr. Mohan Tobias MD Work Phone: [facility] 09-17-2023 08:05-0400 Body temperature 97.3 [degF] Dr. Mohan Tobias Work Phone: [facility] 09-17-2023 08:05-0400 Diastolic blood pressure 73 mm[Hg] Dr. Mohan Tobias Work Phone: [facility] 09-17-2023 08:05-0400 Heart rate 51 /min Dr. Mohan Tobias Work Phone: [facility] 09-17-2023 08:05-0400 Respiratory rate 14 /min Dr. Mohan Tobias Work Phone: [facility] 09-17-2023 08:05-0400 SaO2% (BldA) [Mass fraction] 98 % Dr. Mohan Tobias Work Phone: [facility] 09-17-2023 08:05-0400 Systolic blood pressure 110 mm[Hg] Dr. Mohan Tobias Work Phone: [facility] 09-17-2023 07:03-0400 Body height 160.[address] Mohan Tobias Work Phone: [facility] 09-17-2023 07:03-0400 Body mass index (BMI) [Ratio] 30 kg/m2 Dr. Mohan Tobias Work Phone: [facility] 09-17-2023 07:03-0400 Body weight [address] Mohan Tobias Work Phone: [facility] 09-13-2023 15:00-0400 Body mass index (BMI) [Ratio] 30.4 kg/m2 Dr. Mohan Tobias Work Phone: [facility] 09-13-2023 15:00-0400 Body temperature 98.5 [degF] Dr. Mohan Tobias Work Phone: [facility] 09-13-2023 15:00-0400 Body weight 77.[address] Mohan Tobias Work Phone: [facility] 09-13-2023 15:00-0400 Diastolic blood pressure 84 mm[Hg] Dr. Mohan Tobias Work Phone: [facility] 09-13-2023 15:00-0400 Heart rate 69 /min Dr. Mohan Tobias Work Phone: [facility] 09-13-2023 15:00-0400 Respiratory rate 16 /min Dr. Mohan Tobias Work Phone: [facility] 09-13-2023 15:00-0400 SaO2% (BldA) [Mass fraction] 95 % Dr. Mohan Tobias Work Phone: [facility] 09-13-2023 15:00-0400 Systolic blood pressure 127 mm[Hg] Dr. Mohan Tobias Work Phone: [facility] 09-01-2023 08:15-0400 Body mass index (BMI) [Ratio] 30.9 kg/m2 Dr. Mohan Tobias Work Phone: [facility] 09-01-2023 08:15-0400 Body temperature 97.3 [degF] Dr. Mohan Tobias Work Phone: [facility] 09-01-2023 08:15-0400 Body weight 79.[address] Mohan Tobias Work Phone: [facility] 09-01-2023 08:15-0400 Diastolic blood pressure 82 mm[Hg] Dr. Mohan Tobias Work Phone: [facility] 09-01-2023 08:15-0400 Heart rate 73 /min Dr. Mohan Tobias Work Phone: [facility] 09-01-2023 08:15-0400 Respiratory rate 18 /min Dr. Mohan Tobias Work Phone: [facility] 09-01-2023 08:15-0400 SaO2% (BldA) [Mass fraction] 97 % Dr. Mohan Tobias Work Phone: [facility] 09-01-2023 08:15-0400 Systolic blood pressure 146 mm[Hg] Dr. Mohan Tobias Work Phone: [facility] 09-14-2022 14:05-0400 Body height 160.[address] Mohan Tobias Work Phone: [facility] 09-14-2022 14:05-0400 Body mass index (BMI) [Ratio] 30.4 kg/m2 Dr. Mohan Tobias Work Phone: [facility] 09-14-2022 14:05-0400 Body temperature 98.3 [degF] Dr. Mohan Tobias Work Phone: [facility] 09-14-2022 14:05-0400 Body weight 77.[address] Mohan Tobias Work Phone: [facility] 09-14-2022 14:05-0400 Diastolic blood pressure 79 mm[Hg] Dr. Mohan Tobias Work Phone: [facility] 09-14-2022 14:05-0400 Heart rate 63 /min Dr. Mohan Tobias Work Phone: [facility] 09-14-2022 14:05-0400 Respiratory rate 16 /min Dr. Mohan Tobias Work Phone: [facility] 09-14-2022 14:05-0400 SaO2% (BldA) [Mass fraction] 94 % Dr. Mohan Tobias Work Phone: [facility] 09-14-2022 14:05-0400 Systolic blood pressure 132 mm[Hg] Dr. Mohan Tobias Work Phone: [facility] 04-26-2022 11:31-0500 Diastolic blood pressure 78 mm[Hg] [facility] 04-26-2022 11:31-0500 Heart rate 91 /min [facility] 04-26-2022 11:31-0500 SaO2% (BldA) [Mass fraction] 93 % [facility] 04-26-2022 11:31-0500 Systolic blood pressure 141 mm[Hg] [facility] 04-26-2022 10:00-0500 Inhaled oxygen flow rate 2 L/min [facility] 04-26-2022 09:59-0500 Respiratory rate 24 /min [facility] 04-26-2022 09:51-0500 Body height 160.02 cm [facility] 04-26-2022 09:51-0500 Body mass index (BMI) [Ratio] 30.2 kg/m2 [facility] 04-26-2022 09:51-0500 Body temperature 98.1 [degF] [facility] 04-26-2022 09:51-0500 Body weight 77.33 kg [facility] 09-08-2021 13:14-0400 Body height 160.[address] Durga Davis Work Phone: [facility] Work Phone: 09-08-2021 13:14-0400 Body mass index (BMI) [Ratio] 29.5 kg/m2 Dr. Durga Davis Work Phone: [facility] Work Phone: 09-08-2021 13:14-0400 Body temperature 98.8 [degF] Dr. Durga Davis Work Phone: [facility] Work Phone: 09-08-2021 13:14-0400 Body weight 75.[address] Durga Davis Work Phone: [facility] Work Phone: 09-08-2021 13:14-0400 Diastolic blood pressure 87 mm[Hg] Dr. Durga Davis Work Phone: [facility] Work Phone: 09-08-2021 13:14-0400 Heart rate 84 /min Dr. Durga Davis Work Phone: [facility] Work Phone: 09-08-2021 13:14-0400 Respiratory rate 15 /min Dr. Durga Davis Work Phone: [facility] Work Phone: 09-08-2021 13:14-0400 SaO2% (BldA) [Mass fraction] 95 % Dr. Durga Davis Work Phone: [facility] Work Phone: 09-08-2021 13:14-0400 Systolic blood pressure 141 mm[Hg] Dr. Durga Davis Work Phone: [facility] Work Phone: 09-08-2021 13:14-0400 Body height 160.[address] Durga Davis Work Phone: [facility] Work Phone: 09-08-2021 13:14-0400 Body mass index (BMI) [Ratio] 29.5 kg/m2 Dr. Durga Davis Work Phone: [facility] Work Phone: 09-08-2021 13:14-0400 Body temperature 98.8 [degF] Dr. Durga Davis Work Phone: [facility] Work Phone: 09-08-2021 13:14-0400 Body weight 75.[address] Durga Davis Work Phone: [facility] Work Phone: 09-08-2021 13:14-0400 Diastolic blood pressure 87 mm[Hg] Dr. Durga Davis Work Phone: [facility] Work Phone: 09-08-2021 13:14-0400 Heart rate 84 /min Dr. Durga Davis Work Phone: [facility] Work Phone: 09-08-2021 13:14-0400 Respiratory rate 15 /min Dr. Durga Davis Work Phone: [facility] Work Phone: 09-08-2021 13:14-0400 SaO2% (BldA) [Mass fraction] 95 % Dr. Durga Davis Work Phone: [facility] Work Phone: 09-08-2021 13:14-0400 Systolic blood pressure 141 mm[Hg] Dr. Durga Davis Work Phone: [facility] Work Phone: 10-16-2020 08:57-0400 Body mass index (BMI) [Ratio] 30.4 kg/m2 Dr. Durga Davis Work Phone: [facility] 10-16-2020 08:57-0400 Body mass index (BMI) [Ratio] 30.4 kg/m2 Dr. Durga Davis Work Phone: [facility] Work Phone: Encounters Encounter Date Encounter Type Care Provider Facility Start: 12-19-2024 End: 12-19-[address] Mohan Tboias MD Work Phone: -Laboratory [facility] Start: 12-19-2024 End: 12-19-[address] Mohan Tobias MD -[facility] Start: 12-19-2024 End: 12-19-2024 ambulatory Mohan Tobias Facility:[facility] Start: 11-06-2024 End: 11-06-[address] Mohan Tobias MD Work Phone: [facility] Work Phone: Start: 11-06-2024 End: 11-06-[address] Mohan Tobias MD -[facility] Work Phone: Start: 11-06-2024 End: 11-06-2024 ambulatory Mohan Tobias Facility:[facility] Start: 09-11-[address] Durga Davis MD -[facility] Start: 09-11-2024 End: 09-11-[address] Durga Davis MD -[facility] Work Phone: Start: 09-11-2024 End: 09-11-2024 ambulatory Durga Davis Facility:[facility] Start: 09-07-2024 End: 09-07-[address] Mohan Tobias MD Work Phone: [facility] Work Phone: Start: 09-07-2024 End: 09-07-[address] Mohan Tobias MD -[facility] Work Phone: Start: 09-07-2024 End: 09-07-2024 ambulatory Mohan Tobias Facility:[facility] Start: 05-03-2024 End: 05-03-2024 ambulatory Mohan Tobias Facility:[facility] Start: 03-23-2024 End: 03-23-2024 ambulatory Mohan Tobias Facility:[facility] Start: 03-20-2024 End: 03-20-2024 ambulatory Durga Davis Facility:[facility] Start: 09-17-2023 Non-patient / Non-visit Dr. Sofie Tobias Work Phone: [facility] Start: 09-17-2023 End: 09-17-2023 Admission to same day surgery center Dr. Mohan Tobias Work Phone: [facility] Work Phone: Start: 09-17-2023 End: 09-17-[address] Mohan Tobias Work Phone: [facility] Work Phone: Start: 09-13-[address] Mohan Tobias Work Phone: [facility] Start: 09-13-2023 End: 09-13-[address] Mohan Tobias Work Phone: [facility] Work Phone: Start: 09-01-2023 End: 09-01-[address] Mohan Tobias Work Phone: [facility] Work Phone: Start: 08-18-2023 End: 08-18-2023 ambulatory [facility] Work Phone: Start: 08-18-2023 End: 08-18-2023 Patient encounter procedure [facility] Start: 04-20-2023 End: 04-20-2023 ambulatory [facility] Work Phone: Start: 04-20-2023 End: 04-20-2023 Patient encounter procedure [facility] Start: 02-25-2023 Registered Recurring [facility] Start: 10-06-2022 End: 10-06-[address] Mohan Tobias Work Phone: [facility] Work Phone: Start: 10-06-2022 End: 10-06-[address] Mohan Tobias Work Phone: [facility] Start: 09-25-2022 End: 09-25-[address] Mohan Tobias Work Phone: [facility] Work Phone: Start: 09-25-2022 End: 09-25-[address] Mohan Tobias Work Phone: [facility] Start: 09-14-[address] Mohan Tobias Work Phone: [facility] Start: 09-14-2022 End: 09-14-[address] Mohan Tobias Work Phone: [facility] Start: 07-22-2022 End: 07-22-2022 ambulatory [facility] Work Phone: Start: 07-22-2022 End: 07-22-2022 Patient encounter procedure [facility] Start: 04-26-2022 End: 04-26-2022 Emergency department patient visit [facility] Start: 02-03-2022 End: 02-03-2022 ambulatory [facility] Work Phone: Start: 02-03-2022 End: 02-03-2022 Patient encounter procedure [facility] Start: 01-01-2022 End: 01-01-[address] Durga Davis Work Phone: [facility] Start: 12-25-2021 End: 12-25-[address] Durga Davis Work Phone: [facility] Start: 12-17-2021 End: 12-17-[address] Durga Davis Work Phone: [facility] Start: 09-19-2021 End: 09-19-[address] Durga Davis Work Phone: [facility] Start: 09-18-2021 Non-patient / Non-visit Dr. Sofie Davis Work Phone: [facility] Start: 09-18-2021 End: 09-18-[address] [facility] Start: 09-16-2021 End: 09-16-[address] Durga Davis Work Phone: [facility] Start: 09-08-[address] Alejandro Davis Work Phone: [facility] Start: 09-08-2021 End: 09-08-[address] Durga Davis Work Phone: [facility] Start: 09-05-2021 End: 09-05-[address] Durga Davis Work Phone: [facility] Start: 09-02-2021 End: 09-02-[address] Durga Davis Work Phone: [facility] Start: 08-22-2021 End: 08-22-2021 Patient encounter procedure [facility] Procedures Date Procedure Procedure Detail Performing Clinician Start: 12-19-2024 Urnls dip stick/tablet reagent auto microscopy Dr. Mohan Tobias MD Work Phone: Start: 09-11-[address] Mohan Tobias MD Work Phone: Start: 09-07-2024 Prostate specific antigen measurement Dr. Mohan Tobias MD Work Phone: Comment on above: This test was performed using the [employer] tPSA method. Measured values of a patient sample can vary depending on the testing procedure used. PSA values determined on patient samples by different testing procedures cannot be used interchangeably. If there is a change in PSA assays while monitoring therapy, sequential testing should be performed to confirm baseline values. Start: 09-07-2024 Urnls dip stick/tablet reagent auto microscopy Dr. Mohan Tobias MD Work Phone: Start: 03-13-[address] Mohan Tobias MD Work Phone: Start: 03-13-[address] Mohan Tobias MD Work Phone: Start: 03-13-2024 Measurement of renal function Dr. Mohan abel MD Work Phone: Comment on above: GFR Calc Start: 03-13-2024 Total iron binding capacity measurement Dr. Mohan Tobias MD Work Phone: Start: 09-17-[address] Mohan haley Work Phone: Start: 10-06-[address] Mohan haley Work Phone: Start: 09-25-[address] Mohan haley Work Phone: Start: 04-26-2022 Plain chest X-ray Start: 09-02-2021 US scan of thyroid Dr. Durga Davis Work Phone: Start: 10-16-2020 Allergen spec ige crude allergen extract each Dr. Mohan Tobias MD Work Phone: SARS-CoV-2 & FLU Antigen (Rapid) SARS-CoV-2 & FLU Antigen (Rapid) Plan of Treatment Date Care Activity Detail Author Start: 09-11-2024 Helicobacter pylori [Presence] in Stomach by urea breath test [facility] Start: 09-17-2023 Patient discharge [facility] Start: 04-26-2022 [facility] C reactive protein [Mass/volume] in Serum or Plasma [facility] CBC W Auto Different ial panel - Blood [facility] Erythrocyte sediment ation rate [facility] Ferritin [Mass/volum e] in Serum or Plasma [facility] Folate [Mass/volume] in Serum or Plasma [facility] Iron and Iron bindin g capacity panel - Serum or Plasma [facility] Lactate dehydrogenas e measurement [facility] Patient Education ED Bronchitis, No Antibiotic (Adult) [facility] Work Phone: Patient referral [facility] Work Phone: Reticulocyte count [facility] Vitamin B12 measurement [facility] Immunizations Immunization Date Immunization Notes Care Provider Fa asher 02-29-2016 Influenza virus vaccine [facility] Payers Date Payer Category Payer Medicare [id number] 2020 Self-pay [id number] 2020 Unknown [id number] 2016 Unknown [id number] Unknown [id number] Unknown [id number] 2.16.8 [id number] Unknown [id number] 2.16.8 [id number] Unknown [id number] 2.16.8 [id number] Unknown [id number] 2.16.8 [id number] Unknown [id number] 2.16.8 [id number] Unknown [id number] 2.16.8 [id number] Unknown [id number] 2.16.8 [id number] Unknown [id number] 2.16.8 [id number] Social History Date Type Detail Facility Start: 10-16-2020 End: 09-14-2023 Tobacco smoking status MOIS Unknown if ever smoked [facility] Start: 08-19-2016 None [facility] Start: 07-27-2018 Non-smoker [facility] Start: 1955 Sex Assigned At Male [facility] Start: 09-14-2023 Tobacco smoking stat us MOIS Never smoked tobacco (finding) [facility] Start: 09-13-2024 Sex Male (finding) [facility] Medical Equipment Procedure Code Equipment Code Equipment Origin al Text Equipment Identifier Dates NICHOLE JIANG LG FDA Start: 08-04-2017 NICHOLE JIANG LG FDA Start: 08-04-2017 NICHOLE JIANG FDA Start: 08-04-2017 NICHOLE JIANG FDA Start: 08-04-2017 NICHOLE JIANG FDA Start: 08-04-2017 ROBOTIC ULTRASOU ND PROBES FDA Start: 08-04-2017 SEALANT,FLOSEAL HEMOSTATIC 5ML FDA Start: 08-04-2017 NICHOLE JIANG LG FDA Start: 08-04-2017 NICHOLE JIANG LG FDA Start: 08-04-2017 NICHOLE JIANG FDA Start: 08-04-2017 NICHOLE JIANG FDA Start: 08-04-2017 NICHOLE JIANG FDA Start: 08-04-2017 ROBOTIC ULTRASOU ND PROBES FDA Start: 08-04-2017 SEALANT,FLOSEAL HEMOSTATIC 5ML FDA Start: 08-04-2017 NICHOLE JIANG LG FDA Start: 08-04-2017 NICHOLE JIANG LG FDA Start: 08-04-2017 NICHOLE JIANG FDA Start: 08-04-2017 NICHOLE JIANG FDA Start: 08-04-2017 NICHOLE JIANG FDA Start: 08-04-2017 ROBOTIC ULTRASOU ND PROBES FDA Start: 08-04-2017 SEALANT,FLOSEAL HEMOSTATIC 5ML FDA Start: 08-04-2017 NICHOLE JIANG LG FDA Start: 08-04-2017 NICHOLE JIANG LG FDA Start: 08-04-2017 NICHOLE JIANG FDA Start: 08-04-2017 NICHOLE JIANG FDA Start: 08-04-2017 NICHOLE JIANG FDA Start: 08-04-2017 ROBOTIC ULTRASOU ND PROBES FDA Start: 08-04-2017 SEALANT,FLOSEAL HEMOSTATIC 5ML FDA Start: 08-04-2017 NICHOLE JIANG LG FDA Start: 08-04-2017 NICHOLE JIANG LG FDA Start: 08-04-2017 NICHOLE JIANG FDA Start: 08-04-2017 NICHOLE JIANG FDA Start: 08-04-2017 NICHOLE JIANG FDA Start: 08-04-2017 ROBOTIC ULTRASOU ND PROBES FDA Start: 08-04-2017 SEALANT,FLOSEAL HEMOSTATIC 5ML FDA Start: 08-04-2017 NICHOLE JIANG LG FDA Start: 08-04-2017 NICHOLE JIANG LG FDA Start: 08-04-2017 NICHOLE JIANG FDA Start: 08-04-2017 NICHOLE JIANG FDA Start: 08-04-2017 NICHOLE JIANG FDA Start: 08-04-2017 ROBOTIC ULTRASOU ND PROBES FDA Start: 08-04-2017 SEALANT,FLOSEAL HEMOSTATIC 5ML FDA Start: 08-04-2017 NICHOLE JIANG LG FDA Start: 08-04-2017 NICHOLE JIANG LG FDA Start: 08-04-2017 NICHOLE JIANG FDA Start: 08-04-2017 NICHOLE JIANG FDA Start: 08-04-2017 NICHOLE JIANG FDA Start: 08-04-2017 ROBOTIC ULTRASOU ND PROBES FDA Start: 08-04-2017 SEALANT,FLOSEAL HEMOSTATIC 5ML FDA Start: 08-04-2017 NICHOLE JIANG LG FDA Start: 08-04-2017 NICHOLE JIANG LG FDA Start: 08-04-2017 NICHOLE JIANG FDA Start: 08-04-2017 NICHOLE JIANG FDA Start: 08-04-2017 NICHOLE JIANG FDA Start: 08-04-2017 ROBOTIC ULTRASOU ND PROBES FDA Start: 08-04-2017 SEALANT,FLOSEAL HEMOSTATIC 5ML FDA Start: 08-04-2017 NICHOLE JIANG LG FDA Start: 08-04-2017 NICHOLE JIANG LG FDA Start: 08-04-2017 NICHOLE JIANG FDA Start: 08-04-2017 NICHOLE JIANG FDA Start: 08-04-2017 NICHOLE JIANG FDA Start: 08-04-2017 ROBOTIC ULTRASOU ND PROBES FDA Start: 08-04-2017 SEALANT,FLOSEAL HEMOSTATIC 5ML FDA Start: 08-04-2017 NICHOLE JIANG LG FDA Start: 08-04-2017 NICHOLE JIANG LG FDA Start: 08-04-2017 NICHOLE JIANG FDA Start: 08-04-2017 NICHOLE JIANG FDA Start: 08-04-2017 NICHOLE JIANG FDA Start: 08-04-2017 ROBOTIC ULTRASOU ND PROBES FDA Start: 08-04-2017 SEALANT,FLOSEAL HEMOSTATIC 5ML FDA Start: 08-04-2017 NICHOLE JIANG LG FDA Start: 08-04-2017 NICHOLE JIANG LG FDA Start: 08-04-2017 NICHOLE JIANG FDA Start: 08-04-2017 NICHOLE JIANG FDA Start: 08-04-2017 NICHOLE JIANG FDA Start: 08-04-2017 ROBOTIC ULTRASOU ND PROBES FDA Start: 08-04-2017 SEALANT,FLOSEAL HEMOSTATIC 5ML FDA Start: 08-04-2017 NICHOLE JIANG LG FDA Start: 08-04-2017 NICHOLE JIANG LG FDA Start: 08-04-2017 NICHOLE JIANG FDA Start: 08-04-2017 NICHOLE JIANG FDA Start: 08-04-2017 NICHOLE JIANG FDA Start: 08-04-2017 ROBOTIC ULTRASOU ND PROBES FDA Start: 08-04-2017 SEALANT,FLOSEAL HEMOSTATIC 5ML FDA Start: 08-04-2017 NICHOLE JIANG LG FDA Start: 08-04-2017 NICHOLE JIANG LG FDA Start: 08-04-2017 NICHOLE JIANG FDA Start: 08-04-2017 NICHOLE JIANG FDA Start: 08-04-2017 NICHOLE JIANG FDA Start: 08-04-2017 ROBOTIC ULTRASOU ND PROBES FDA Start: 08-04-2017 SEALANT,FLOSEAL HEMOSTATIC 5ML FDA Start: 08-04-2017 NICHOLE JIANG LG FDA Start: 08-04-2017 NICHOLE JIANG LG FDA Start: 08-04-2017 NICHOLE JIANG FDA Start: 08-04-2017 NICHOLE JIANG FDA Start: 08-04-2017 NICHOLE JIANG FDA Start: 08-04-2017 ROBOTIC ULTRASOU ND PROBES FDA Start: 08-04-2017 SEALANT,FLOSEAL HEMOSTATIC 5ML FDA Start: 08-04-2017 NICHOLE JIANG LG FDA Start: 08-04-2017 NICHOLE JIANG LG FDA Start: 08-04-2017 NICHOLE JIANG FDA Start: 08-04-2017 NICHOLE JIANG FDA Start: 08-04-2017 NICHOLE JIANG FDA Start: 08-04-2017 ROBOTIC ULTRASOU ND PROBES FDA Start: 08-04-2017 SEALANT,FLOSEAL HEMOSTATIC 5ML FDA Start: 08-04-2017 NICHOLE JIANG LG FDA Start: 08-04-2017 NICHOLE JIANG LG FDA Start: 08-04-2017 NICHOLE JIANG FDA Start: 08-04-2017 NICHOLE JIANG FDA Start: 08-04-2017 DEIDRETEJALMADELEINE TREJO FDA Start: 08-04-2017 ROBOTIC ULTRASOU ND PROBES FDA Start: 08-04-2017 SEALANT,FLOSEAL HEMOSTATIC 5ML FDA Start: 08-04-2017 NICHOLE JIANG LG FDA Start: 08-04-2017 NICHOLE JIANG LG FDA Start: 08-04-2017 NICHOLE JIANG FDA Start: 08-04-2017 NICHLOE JIANG FDA Start: 08-04-2017 NICHOLE JIANG FDA Start: 08-04-2017 ROBOTIC ULTRASOU ND PROBES FDA Start: 08-04-2017 SEALANT,FLOSEAL HEMOSTATIC 5ML FDA Start: 08-04-2017 NICHOLE JIANG LG FDA Start: 08-04-2017 NICHOLE JIANG LG FDA Start: 08-04-2017 NICHOLE JIANG FDA Start: 08-04-2017 NICHOLE JIANG FDA Start: 08-04-2017 NICHOLE JIANG FDA Start: 08-04-2017 ROBOTIC ULTRASOU ND PROBES FDA Start: 08-04-2017 SEALANT,FLOSEAL HEMOSTATIC 5ML FDA Start: 08-04-2017 NICHOLE JIANG LG FDA Start: 08-04-2017 NICHOLE JIANG LG FDA Start: 08-04-2017 NICHOLE JIANG FDA Start: 08-04-2017 NICHOLE JIANG FDA Start: 08-04-2017 NICHOLE JIANG FDA Start: 08-04-2017 ROBOTIC ULTRASOU ND PROBES FDA Start: 08-04-2017 SEALANT,FLOSEAL HEMOSTATIC 5ML FDA Start: 08-04-2017 Goals Date Patient Goal Desired Activity /State Mental Status Date Assessment Result Facility 09-17-2023 Cognitive function Voice/Name [facility] Work Phone: Evaluation note 09-11-2024 Note Date & Type Note Facility 09-11-2024 Evaluation note Diagnosis Onset Date Resolution Neutropenia chronic September 11, 12:13pm Thrombocytopenia chronic September 112024 12:13pm [facility] Work Phone: Procedure note 09-17-2023 Note Date & Type Note Facility 09-17-2023 Procedure note [facility] Procedure note 09-17-2023 Note Date & Type Note Facility 09-17-2023 Procedure note [facility] Evaluation note Note Date & Type Note Facility Evaluation note No assessment information availa ble [facility] Work Phone: Evaluation note Note Date & Type Note Facility Evaluation note Diagnosis Onset Date Neutropenia acute Thrombocytopenia chronic [facility] Work Phone: Evaluation note Note Date & Type Note Facility Evaluation note Diagnosis Onset Date Grove's esophagus determined by biopsy acute High serum vitamin B12 acute Hypokalemia acute Neutropenia chronic Thrombocytopenia [facility] Work Phone: History and physical note Note Date & Type Note Facility History and physical note Note Date/Time September 17, 2023 7:53am [facility] Medical Records Department [address] [place] [address] History & Physical Exam 09/17/23 0753 MR#: [id number] Acct: [id number] Name: CHAMP WU Rep #:[id number] : 1955 68 From: Cleveland arias MD PCP: Dr. Mohan Tobias MD Status:[facility] Location: [place] [address] History and Physical Date of Admission: 09/17/23 Intake Vital Signs 09/14/2313:05 09/01/2407:15 Height 5 ft 3 in 5 ft 3 in Weight: 175 lb BMI 30.9 BP 146/82 H Blood Pressure Location Rt brachial Position Sitting Respiration 18 Pulse 73 Pulse Source Monitor Temp 97.3 F L Temp Source Temporal Pulse Oximetry (%) 97 Oxygen Delivery Method room air Intake Visit Reasons: HX OF Barretts seen 2018 Chief Complaint: hx of barretts seen 2018 Gold Burnisher Required: No Is patient in pain?: No Allergies Beta-Blockers (Beta-Adrenergic Bloc Adverse Reaction (Intermediate, Verified 09/01/23 08:15) UNK Medications amlodipine 5 mg tablet 10 mg PO DAILY blood pressure 05/18/16 [History Confirmed 09/01/23] lisinopril 20 mg tablet 20 mg PO DAILY blood pressure 05/18/16 [History Confirmed 09/01/23] multivitamin with folic acid 400 mcg tablet 1 tab PO DAILY supplement 08/05/16 [History Confirmed 09/01/23] magnesium hydroxide 400 mg/5 mL oral suspension 5 ml PO DAILY PRN 10/16/20 [History Confirmed 09/01/23] omega-3 fatty acids 1,000 mg capsule (Fish Oil Concentrate) 2,000 mg PO DAILY PRN 10/16/20 [History Confirmed 09/01/23] hydrochlorothiazide 12.5 mg tablet 12.5 mg PO DAILY 11/06/20 [History Confirmed 09/01/23] melatonin 3 mg capsule 3 mg PO QHS 09/14/22 [History Confirmed 09/01/23] triamcinolone acetonide 55 mcg nasal spray aerosol (Nasacort) intranasal 09/14/22 [History Confirmed 09/01/23] PFSH Medical History Chest pressure Epigastric pain Hiatal hernia HLD (hyperlipidemia) HTN (hypertension) Hypokalemia Kidney cysts Kidney tumor Pancreas cyst Thrombocytopenia Surgical History H/O vasectomy History of kidney surgery Family History Sister Diabetes Hypertension CAD (coronary artery disease)Father Hypertension Kidney diseaseMother HypertensionBrother Seizures Social History Smoking Status: Never smoker second hand exposure: No alcohol intake: never substance use type: does not use anand/amish: Scientology HPI HPI HPI: Patient is a 67-year-old male here for reflux and history of Grove's. Patientreports he is not having any reflux he is no longer on a PPI. He does not have any complaints and is here for surveillance EGD. ROS General General: No weight change, appetite, fatigue, colon cancer, breast cancer or weakness HEENT HEENT: No difficulty swallowing, eye injury, eye surgery, swollen glands or hoarseness Endo Endocrine: No thyroid disease, diabetes mellitus, thyroid cancer, Hair loss, heat intolerance or cold intolerance Skin Skin: No rash or changing moles Musc Musculoskeletal: Yes back problems; No arthritis, rheumatoid arthritis, gout or joint pain Cardio Cardiovascular: Yes murmur and high blood pressure; No pacemaker, heart disease, atrial fibrillation, heart attack, heart stent, palpitations, shortness of breat with exertion or chest pain Psych Psychiatric: No depression, anxiety or hearing voices Resp Respiratory: No shortness of breath, No sleep apnea, No cough, No COPD, No asthma, No emphysema and No wheezing Gastro Gastrointestinal: Yes abdominal pain, No nausea or vomiting, No diarrhea, No constipation, No blood in stool, No acid reflux, No hemorrhoids, No ulcers, No gallbladder problem and No black,tarry stools Avelino Hematologic: No blood thinners, Yes blood disorders, No bleeding, No anemia and No blood clots Additional Details: thrombocytopenia Neuro Neurologic: No numbness, No tingling and No weakness Exam Const General: cooperative Orientation: alert and oriented x3 HENMT Head: normal to inspection Neck Neck: normal visual inspection and full ROM Chest Chest palpation & inspection: normal inspection of the chest Resp Effort & Inspection: normal respiratory effort Auscultation: clear to auscultation bilaterally Cardio Rate: regular rate Rhythm: regular rhythm GI Inspection: non-distended Palpation: soft and nontender Skin General: no rashes or lesions noted Neuro General: patient alert and patient oriented x3 Extrem General: full ROM Psych Appearance: grossly normal Mental Status: mental status grossly normal Assessment and Plan Assessment and Plan (1) 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 He is duefor surveillance EGD for Grove's biopsies. I explained endoscopy in detail to the patient. I explained the risks includingbut not limited to stroke or heart attack with anesthesia, perforation of the GItract, bleeding, infection. I explained that any of these could necessitate further emergency surgery. The patient understands and all questions were answered sufficiently. The patient wishes to proceed with procedure. Cleveland Villanueva MD Pager: [facility] [address] [place] [address], [address] [place] [address] Office: I have examined the patient and the H&P has been reviewed. There are no clinicalchanges since date of exam. 09/17/23 0753 <Electronically signed by Cleveland Villanueva MD> Cosigner Signature (if applicable): CC: Dr. Cleveland Villanueva MD; Dr. Mohan Tobias MD~ Signed [facility] Work Phone: Hospital Discharge instructions Note Date & Type Note Facility Hospital Discharge instructions Additional Instructions Fluids and rest. Tylenol for body aches and fevers. COVID and influenza swabs are both negative today. Chest x-ray showed no pneumonia. Follow-up with his doctor if not improving. [facility] Work Phone: Reason for referral (narrative) Note Date & Type Note Facility Reason for referral (narrative) No reason for referral information available [facility] Work Phone: Family History Relationship Condition Age at Onset Recorded Date/T shoaib sister Diabetes mellitus Unknown Hypertension Unknown Coronary artery disease Unknown father Hypertension Unknown Kidney disorder Unknown mother Hypertension Unknown brother Seizure Unknown Advance Directives Advance Directive Response Recorded Date/ Time Living Will Yes July 27 4:28pm Power of Keg Header Yes July 27, 2018 4:28pm Advance Directive Response Recorded Date/ Time Name of Medical Power of Keg Header arturo porras April 26, 2022 10:00am Living Will Yes April 26 10:00am Power of Keg Header Yes April 26, 2022 10:00am Advance Directive Response Recorded Date/ Time Living Will Yes April 26 10:00am Power of Keg Header Yes April 26, 2022 10:00am Name of Medical Power of Keg Header arturo porras April 26, 2022 10:00am Advance Directive Response Recorded Date/ Time Living Will Yes April 26 11:00am Power of Keg Header Yes April 26, 2022 11:00am Advance Directive Response Recorded Date/ Time Living Will Yes April 26 10:00am Power of Keg Header Yes April 26, 2022 10:00am Advance Directive Response Recorded Date/ Time Name of Medical Power of Keg Header September 14, 2023 3:22pm Living Will Yes September 14, 2023 3:22pm Power of Keg Header Yes September 13 3:22pm Advance Directive Response Recorded Date/ Time Living Will Yes September 14, 2023 3:22pm Do you have a Healthcare Power of Keg Header? Yes September 14, 2023 3:22pm Living Will Yes July 27 4:28pm Do you have a Healthcare Power of Keg Header? Yes July 27, 2018 4:28pm Chief Complaint and Reason for Visit Chief Complaint Admit Date 6MO LABS September 11, 2024 12: 13pm LABS September 11, 2024 12: 45pm LABS November 06, 2024 9:41a m Reason for Visit Admit Date Neutropenia September 11, 2024 12: 13pm Thrombocytopenia September 11, 2024 12: 13pm Chief Complaint THYROID NODULE 6MO LABS LABS Reason for Visit Neutropenia Thrombocytopenia Chief Complaint THYROID NODULE 6MO LABS LABS MURMUR Reason for Visit Neutropenia Thrombocytopenia Chief Complaint 6MO LABS LABS MURMUR EORDER Reason for Visit Neutropenia Thrombocytopenia Chief Complaint EORDER Chief Complaint COUGH Chief Complaint 1YR LABS LABS PANCREATIC LESION Reason for Visit Neutropenia Thrombocytopenia Chief Complaint 1YR LABS LABS PANCREATIC LESION PANCREATIC LESION Reason for Visit Neutropenia Thrombocytopenia Chief Complaint LABS Chief Complaint HX OF Barretts seen 2018 12 MONTH, LABS LABS Reason for Visit Grove's esophagus determined by biopsy High serum vitamin B12 Hypokalemia Neutropenia Thrombocytopenia Chief Complaint Admit Date 6MO LABS September 11, 2024 12: 13pm LABS September 11, 2024 12: 45pm Summary Purpose Additional Source Comments Goals (unrecognized section and content) Goals may be documented in a n alternate sectionGoals may be documented in an alternate sectionGoals may be documented in an alternate sectionGoals may be documented in an alternate sectionGoals may be documented in an alternate sectionGoals may be documented in an alternate sectionGoals may be documented in an alternate sectionGoals may be documented in an alternate sectionGoals may be documented in an alternate sectionGoals may be documented in an alternate sectionGoals may be documented in an alternate sectionGoals may be documented in an alternate sectionGoals may be documented in an alternate sectionGoals may be documented in an alternate sectionGoals may be documented in an alternate sectionGoals may be documented in an alternate sectionGoals may be documented in an alternate sectionGoals may be documented in an alternate section Care Teams (unrecognized sec tion and content) Team Status: Active Member Role Status Dates Dr. Mohan Boyer MD Family Provider Active Dr. Mohan Tobias MD Primary Care Provider Active Team Status: Inactive Member Role Status Dates Dr. Mohan Tobias MD Primary Care Provider Active Dr. Reynaldo Vidal MD Attending Provider, Emergency Pro vider Active Team Status: Inactive Member Role Status Dates Dr. Mohan Tobias MD Primary Care Pr ovider, Attending Provider, Referring Provider Active Team Status: Inactive Member Role Status Dates Dr. Mohan Tobias MD Primary Care Provider, Referr ing Provider Active Dr. Durga Davis MD Attending Provider Active Team Status: Active Member Role Status Dates Dr. Mohan Boyer MD Primary Care Provider Active Dr. Durga Davis MD Attending Provider, Referring Pro vider Active Team Status: Inactive Member Role Status Dates Dr. Mohan Tobias MD Primary Care Provider, Attend ing Provider Active Team Status: Inactive Member Role Status Dates Dr. Mohan Tobias MD Primary Care Provider, Referr ing Provider Active Dr. Cleveland Villanueva MD Attending Provider Active Team Status: Active Member Role Status Dates Dr. Mohan Tobias MD Primary Care Provider, Referr ing Provider Active Dr. Cleveland Villanueva MD Attending Provider, Other Provider Active Team Status: Active Member Role Status Dates Dr. Mohan Tobias MD Primary Care Provider Active Team Status: Inactive Member Role Status Dates Dr. Mohan Tobias MD Primary Care Provider Active Start: September 07, 2024 End: September 07, 2024 Dr. Mohan Tobias MD Attending Provider Active Start: September 07, 2024 End: September 07, 2024 Dr. Mohan Tobias MD Referring Provider Active Start: September 07, 2024 End: September 07, 2024 Team Status: Inactive Member Role Status Dates Dr. Mohan Tobias MD Primary Care Provider Active Start: September 11, 2024 End: September 11, 2024 Dr. Mohan Tobias MD Referring Provider Active Start: September 11, 2024 End: September 11, 2024 Dr. Durga Davis MD Attending Provider Active S tart: September 11, 2024 End: September 11, 2024 Team Status: Active Member Role Status Dates Dr. Mohan Boyer MD Primary Care Provider Active Start: September 11, 2024 Dr. Durga Davis MD Attending Provider Active S tart: September 11, 2024 Dr. Durga Davis MD Referring Provider Active S tart: September 11, 2024 Team Status: Inactive Member Role Status Dates Dr. Mohan Tobias MD Primary Care Provider Active Start: November 06, 2024 End: November 06, 2024 Dr. Mohan Tobias MD Attending Provider Active Start: November 06, 2024 End: November 06, 2024 Dr. Mohan Tobias MD Referring Provider Active Start: November 06, 2024 End: November 06, 2024 Team Status: Active Member Role/Relationship Status Dates Dr. Mohan Tobias MD Primary Care Provider Active Team Status: Inactive Member Role/Relationship Status Dates Dr. Mohan Tobias MD Primary Care Provider Active Start: September 07, 2024 End: September 07, 2024 Dr. Mohan Tobias MD Attending Provider Active Start: September 07, 2024 End: September 07, 2024 Dr. Mohan Tobias MD Referring Provider Active Start: September 07, 2024 End: September 07, 2024 Team Status: Inactive Member Role/Relationship Status Dates Dr. Mohan Tobias MD Primary Care Provider Active Start: September 11, 2024 End: September 11, 2024 Dr. Mohan Tobias MD Referring Provider Active Start: September 11, 2024 End: September 11, 2024 Dr. Durga Davis MD Attending Provider Active S tart: September 11, 2024 End: September 11, 2024 Team Status: Active Member Role/Relationship Status Dates Dr. Mohan Boyer MD Primary Care Provider Active Start: September 11, 2024 Dr. Durga Davis MD Attending Provider Active S tart: September 11, 2024 Dr. Durga Davis MD Referring Provider Active S tart: September 11, 2024 Team Status: Inactive Member Role/Relationship Status Dates Dr. Mohan Tobias MD Primary Care Provider Active Start: November 06, 2024 End: November 06, 2024 Dr. Mohan Tobias MD Attending Provider Active Start: November 06, 2024 End: November 06, 2024 Dr. Mohan Tobias MD Referring Provider Active Start: November 06, 2024 End: November 06, 2024 Team Status: Inactive Member Role/Relationship Status Dates Dr. Mohan Tobias MD Primary Care Provider Active Start: December 19, 2024 End: December 19, 2024 Dr. Mohan Tobias MD Attending Provider Active Start: December 19, 2024 End: December 19, 2024 Dr. Mohan Tobias MD Referring Provider Active Start: December 19, 2024 End: December 19, 2024 (unrecognized sect ion and content) No Status Records Found INFORMATION SOURCE (unrecogn ized section and content) DATE CREATED AUTHOR 12/26/2024 [facility] FOR RECORDS PERTAINING TO PATIENTS WHO ARE OR HAVE BEEN ENROLLED IN A CHEMICAL DEPENDENCY/SUBSTANCEABUSE PROGRAM, SOME INFORMATION MAY BE OMITTED. This clinical summary was aggregated from multiple sources. Caution should be exercised in using it in the provision of clinical care. This summary normalizes information from multiple sources, and as a consequence, information in this document may materially change the coding, format and clinical context of patient data. In addition, data may be omitted in some cases. CLINICAL DECISIONS SHOULD BE BASED ON THE PRIMARY CLINICAL RECORDS. [employer] provides no warranty or guarantee of the accuracy or completeness of information in this document.
[2025-04-12 12:45] LABS: Cholesterol 130 mg/dL (<=200); Low Density Lipoprotein Calc. 70 mg/dL; Triglycerides 127 mg/dL; Very Low Density Lipoprotein 25 mg/dL (5-40); cholesterol:hdl ratio screen 3.49
[2025-04-12 13:03] LABS: Creatinine, Urine (random) 204.00 mg/dL (39.00-259.00); Microalbumin,Random Urine 16.7 mg/L (<20 mg/L)
[2025-04-12 13:20] LABS: AST(SGOT) 17 U/L (<=37); Alanine Aminotransfer ALT/SGPT 14 U/L (<=46); Albumin, Serum 4.1 g/dL (3.4-4.8); Alkaline Phosphatase 100 U/L (40-129); Anion Gap 11 (5-15); BUN 22 mg/dL (4-19); BUN/Creat Ratio 19.7 RATIO (10-20); Calcium,Total 9.5 mg/dL (7.6-11.0); Carbon Dioxide 26.0 mmol/L (21.0-32.0); Chloride 104 mmol/L (98-108); Globulin 3.0 g/dL (2.2-4.2); Glucose 110 mg/dL (70-99); Potassium 3.8 mmol/L (3.3-5.1)
== END | disposition home or self-care (01) ==
LOC: MFPLAB 10:05
PROVIDERS: PCP Family Medicine; Visit Provider Family Medicine
DX: E11.69 Type 2 diabetes mellitus with other specified complication (principal)
CPT/HCPCS: 36415; 80053; 80061; 82043; 82570; 83036; 85025